=== PATIENT | born 1940 ===

== ENCOUNTER 2024-09-25 14:06 | Outpatient (NON) | payer MEDICARE, SELFPAY ==
--- OUTSIDE RECORDS SUMMARY | 2024-09-25 14:43 | XMS_ITS | Clinical Summary ---
Author Organization [facility] Address [address] [place] [address] Care Team Providers Care Wetlands Conservation Laborer Name Role Phone Prashanth Pate MD Primary Care Provider [phone] Immunizations Immunization Administration Dates Next Due MODERNA COVID-19 (12+) MRNA, LNP-S, PF, 100 MCG/ 0.5 ML DOSE 04/17/2020 Social History Tobacco Use Types Packs/Day Years Used Date Smoking Tobacco: Never Assessed Sex and Gender Information Value Date Recorded Sex Assigned at Not on file Legal Sex Male 7:29 PM CDT Gender Identity Not on file Sexual Orientation Not on file Last Filed Vital Signs Vital Sign Reading Time Taken Comments Blood Pressure 134/79 04/23/2013 9:34 AM CDT Pulse 80 04/23/2013 9:34 AM CDT Temperature - - Respiratory Rate - - Oxygen Saturation - - Inhaled Oxygen Concentration - - Weight 85.7 kg (189 lb) 04/23/2013 9:34 AM CDT Height 176.5 cm (5' 9.5) 04/23/2013 9:34 AM CDT Body Mass Index 27.51 04/23/2013 9:34 AM CDT Plan of Treatment Health Maintenance Due Date Last Done Comments DTaP, Tdap and Td Vaccines ( 1 - Tdap) 1960 Pneumococcal Vaccine: 50+ Years (1 of 1 - PCV) 10/23/1991 Zoster Vaccines (1 of 2) 10/23/1991 RSV Immunization or 60+ Years (1 - 1-dose 75+ series) 2016 COVID-19 Vaccine ( - 2023-2 5 season) 2023 04/17/2020, 03/17/2020 Meningococcal B Vaccine Aged Out No l onger eligible based on patient's age to complete this topic Meningococcal Vaccine Aged Out No yumiko cecil eligible based on patient's age to complete this topic RSV Immunizations Under 20 Months Aged Out No longer eligible b ased on patient's age to complete this topic Care Teams Wetlands Conservation Laborer Relationship Specialty Start Date End Date Prashanth Pate MD [address] [place] [address] PCP - General 06/25/14
--- OUTSIDE RECORDS SUMMARY | 2024-09-25 14:43 | XMS_ITS | Encounter Summary ---
Author Organization [facility] Healthcare Address [address] [place] [address] Care Team Providers Care Oxidation Engineer Name Role Phone Zane King MD Unavailable [phone] Nohemi Hatfield MD Primary Care Provider + [phone] Prashanth Back OD Unavailable [phone] Suresh Ascencio MD Unavailable [phone] Prashanth Gutierrez MD Unavailable Encounter Details Date Type Department Care Team (Late st Contact Info) Description 09/05/2024 Results Follow-Up [facility] Medical Group Primary Care [address] [address] Nohemi Hatfield MD [address] [place] [address] Stress Test for Myocardial Perfusion Social History Tobacco Use Types Packs/Day Years Used Date Smoking Tobacco: Former Cigarettes 0.5 5 0 02/14/1962 - 11/15/1967 Passive Smoke Exposure: Never Smokeless Tobacco: Never Alcohol Use Standard Drinks/Week Comments Yes 0 (1 standard drink = 0.6 oz pur e alcohol) AUDIT-C Answer Date Recorded Q1: How often do you have a drink containing alc ohol? 2-4 times a month 09/03/2024 Q2: How many drinks containi ng alcohol do you have on a typical day when you are drinking? 1 or 2 09/03/2024 Q3: How often do you have si x or more drinks on one occasion? Never 09/03/2024 PHQ-2 Answer Date Recorded PHQ-2 Total Score (If total score is 3 or more points, staff should administer the PHQ-9) 0 07/16/2024 PHQ-9 Answer Date Recorded PHQ-9 Total Score 4 10/20/2023 Personal Safety Answer Date Recorded Have you ever been in or are you currently in a harmful physical or emotional relationship or is someone making you feel afraid or unsafe? Denies 09/03/2024 Sex and Gender Information Value Date Recorded Sex Assigned at Not on file Legal Sex Male 8:25 AM CDT Gender Identity Male 04/23/2019 11:49 AM CDT Sexual Orientation Not on file Occupation Industry Job Start Date Job End Date retired-[employer] Not on file Not on file Not on file documented as of this encounter Miscellaneous Notes * Result Encounter Note - Nohemi Hatfield MD - 09/05/2024 5:23 PM CDT Test reviewed. Test ordered and managed by another provider. Will discuss with patient on follow upvisit. documented in this encounter Plan of Treatment Not on file documented as of this encounter Goals Goal Patient Goal Type Associated Problems Recent Progress Patient-Stated? Author Autogenera arnold Goal Care Plan Autogenerated Problem No Soumya Lund documented as of this encounter Visit Diagnoses Not on filedocumented in this encounter Additional Health Concerns Active Problems Noted Date Diagnosed Date 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 documented as of this encounter Care Teams Oxidation Engineer Relationship Specialty Start Date End Date Nohemi Hatfield MD [address] [place] [address] PCP - General Internal Medicine 04/30/19 Zane King MD [facility] [address] [address] Consulting Physician Orthopedic Surgery 10/25/18 Prashanth Back OD [facility] [place] [address] Internal Medicine 11/08/19 Suresh Ascencio MD [facility] [address] [place] [address] Consulting Physician Cardiology 12/13/22 Prashanth Gutierrez MD [facility] [address] [place] [address] Consulting Physician Urology 06/15/23 documented as of this encounter
--- OUTSIDE RECORDS SUMMARY | 2024-09-25 14:43 | XMS_ITS | Encounter Summary ---
Author Organization [facility] Facility Care Team Providers Care Children'S Counselor Name Role Phone Nohemi Hatfield MD Primary Care Provider + [phone] Zane King MD Unavailable [phone] Jaron Owens MD Unavailable [phone] Franko Davis MD Unavailable [phone] Francia Champagne LPN Unavailable [phone] Mateusz Olivas Primary Care Provide r Nohemi Hatfield MD Primary Care Provider + [phone] Prashanth Back OD Unavailable [phone] Francia Champagne LPN Unavailable [phone] Ciaran Lara MD Unavailable [phone] Suresh Ascencio MD Unavailable [phone] Prashanth Gutierrez MD Unavailable Encounter Details Date Type Department Care Team (Latest Contact Info) Description 11/30/2015 Orders Only [facility] CLINCONV ProviderRon MD [address] [place] [address] Social History Tobacco Use Types Packs/Day Years Used Date Smoking Tobacco: Never Assessed Sex and Gender Information Value Date Recorded Sex Assigned at Not on file Legal Sex Male 8:25 AM CDT Gender Identity Male 04/23/2019 11:49 AM CDT Sexual Orientation Not on file documented as of this encounter Plan of Treatment Not on file documented as of this encounter Procedures Procedure Name Priority Date/Time Associated Diagnosis Comments PROCEDURE - RESULT 12/11/2015 12 :00 AM CDT SCAN - LABS 12/09/2015 12:00 AM CDT documented in this encounter Results * PROCEDURE - RESULT (12/11/2015 12:00 AM CDT) Narrative 12/11/2015 12:00 AM CDT Ordered by an unspecified provider. us Historical Provider Final Res ult * SCAN - LABS (12/09/2015 12:00 AM CDT) Narrative 12/09/2015 12:00 AM CDT Ordered by an unspecified provider. us Historical Provider Final Res ult documented in this encounter Visit Diagnoses Not on filedocumented in this encounter Care Teams Children'S Counselor Relationship Specialty Start Date End Date Nohemi Hatfield MD [address] [place] [address] PCP - General 04/19/18 02/26/19 Mateusz Olivas PA [facility] [address] CAMACHO [address] [place] [address] PCP - General 02/27/19 04/29/19 Nohemi Hatfield MD [address] [place] [address] PCP - General Internal Medicine 04/30/19 Zane King MD [address] [place] [address] [address] CAMACHO [address] [place] [address] Consulting Physician Orthopedic Surgery 10/25/18 Jaron Owens MD [address] [facility] [address] [place] [address] Consulting Physician Orthopedic Surgery 10/25/1812/12 Franko Davis MD [address] [facility] [address] CAMACHO [address] [address] Circulation Crew Leader Cardiovascular Disease 11/15/18 Francia Champagne, HAND ENGRAVER [address] [facility] [address] CAMACHO [address] [address] Office Assistance 11/20/18 11/20/18 Prashanth Back OD [facility] [address] [place] [address] Internal Medicine 11/08/19 Francia Champagne, HAND ENGRAVER [address] [facility] [address] CAMACHO [address] [address] Office Assistance 06/03/20 06/03/20 Ciaran Lara MD [facility] [place] [address] Consulting Physician Ophthalmology 11/18/20 12/12/22 Suresh Ascencio MD [facility] [address] [place] [address] Consulting Physician Cardiology 12/13/22 Prashanth Gutierrez MD [facility] [address] [place] [address] Consulting Physician Urology 06/15/23 documented as of this encounter
--- OUTSIDE RECORDS SUMMARY | 2024-09-25 14:43 | XMS_ITS | Encounter Summary ---
Author Organization [facility] Facility Care Team Providers Care Africana Studies Professor Name Role Phone Nohemi Hatfield MD Primary Care Provider + [phone] Zane King MD Unavailable + [phone] Jaron Owens MD Unavailable [phone] Franko Davis MD Unavailable [phone] Francia Champagne LPN Unavailable +[phone] Mateusz Olivas Primary Care Provide r Nohemi Hatfield MD Primary Care Provider + [phone] Prashanth Back OD Unavailable [phone] Francia Champagne LPN Unavailable [phone] Ciaran Lara MD Unavailable [phone] Suresh Ascencio MD Unavailable [phone] Prashanth Gutierrez MD Unavailable Encounter Details Date Type Department Care Team (Latest Contact Info) Description 05/21/2016 Orders Only [facility] CLINCONV ProviderRon MD [address] [place] [address] Social History Tobacco Use Types Packs/Day [...] Procedure Name Priority Date/Time Associated Diagnosis Comments COLONOSCOPY - SCAN 05/21/2016 12 :00 AM CDT documented in this encounter Results * COLONOSCOPY - SCAN (05/21/2016 12:00 AM CDT) Narrative 05/21/2016 12:00 AM CDT Ordered by an unspecified provider. us Historical Provider Final Res ult documented in this encounter Visit Diagnoses Not on filedocumented in this encounter Care Teams Africana Studies Professor Relationship Specialty Start Date End Date Nohemi Hatfield MD [address] [place] [address] PCP - General 04/19/18 02/26/19 Mateusz Olivas PA [address] [place] [address] DR CAMACHO [address] [place] [address] PCP - General 02/27/19 04/29/19 Nohemi Hatfield MD [address] [place] [address] PCP - General Internal Medicine 04/30/19 Zane King MD [address] [place] [address] DR CAMACHO [address] [place] [address] Consulting Physician Orthopedic Surgery 10/25/18 Jaron Owens MD [address] [place] [address] DR CAMACHO [address] [place] [address] Consulting Physician Orthopedic Surgery 10/25/1812/12 Franko Davis MD [address] [place] [address] DR [address]ACHO [address] [address] Pumpman Cardiovascular Disease 11/15/18 Francia Champagne LPN [address] [facility] [address] CAMACHO [address] [address] Busgirl 11/20/18 11/20/18 Prashanth Back OD [facility] [address] [place] [address] Internal Medicine 11/08/19 Francia Champagne LPN [address] [facility] [address] CAMACHO [address] [address] Busgirl 06/03/20 06/03/20 Ciaran Lara MD [facility] [address] [place] [address] Consulting Physician Ophthalmology 11/18/20 12/12/22 Suresh Ascencio MD [facility] [address] [place] [address] Consulting Physician Cardiology 12/13/22 Prashanth Gutierrez MD [facility] [address] [place] [address] Consulting Physician Urology 06/15/23 documented as of this encounter
--- OUTSIDE RECORDS SUMMARY | 2024-09-25 14:43 | XMS_ITS | Encounter Summary ---
Author Organization [facility] Healthcare Address [address] [place] [address] Care Team Providers Care Registered Radiographer Name Role Phone Zane King MD Unavailable [phone] Nohemi Hatfield MD Primary Care Provider + [phone] Prashanth Back OD Unavailable [phone] Suresh Ascencio MD Unavailable [phone] Prashanth Gutierrez MD Unavailable Reason for Visit * Reason Onset Date Comments Spoke With Home Health Provider 09/20/2024 Encounter Details Date Type Department Care Team ([facility] st Contact Info) Description 09/20/2024 Telephone [facility] Medical Group Primary Care [address] [phone] Nohemi Hatfield MD [address] [place] [address] Spoke With Home Health Provider Social History Tobacco Use Types Packs/Day Years Used Date Smoking Tobacco: Former Cigarettes 0.5 5 0 02/14/1962 - 11/15/1967 Passive Smoke Exposure: Never Smokeless Tobacco: Never Alcohol Use Standard Drinks/Week Comments Yes 0 (1 standard drink = 0.6 oz pur e alcohol) [facility] Utilities Answer Date Recorded In the past 12 months has [employer] electric, gas, oil, or water company threatened to shut off services in your home? No 09/18/2024 Social Connection and Isolation Panel Answer Date Recorded In a typical week, how many times do you talk on the phone with family, friends, or neighbors? More than three times a week 09/18/2024 How often do you get togethe r with friends or relatives? More than three times a week 09/18/2024 How often do you attend chur or jain services? More than 4 times per year 09/18/2024 Do you belong to any clubs o r organizations such as amish groups, unions, fraternal or athletic groups, or school groups? No 09/18/2024 How often do you attend meet ings of the clubs or organizations you belong to? Never 09/18/2024 Are you , , di vorced, , never , or living with a partner? 09/18/2024 AUDIT-C Answer Date Recorded Q1: How often do you have a drink containing alc ohol? Monthly or less 09/17/2024 Q2: How many drinks containi ng alcohol do you have on a typical day when you are drinking? 1 or 2 09/17/2024 Q3: How often do you have si x or more drinks on one occasion? Never 09/17/2024 Overall Financial Resource Strain (CARDIA) Answe r Date Recorded How hard is it for you to pa y for the very basics like food, housing, medical care, and heating? Not hard at all 09/18/2024 PHQ-2 Answer Date Recorded PHQ-2 Total Score (If total score is 3 or more points, staff should administer the PHQ-9) 0 09/24/2024 Hunger Vital Sign Answer Date Recorded Within the past 12 months, y ou worried that your food would run out before you got the money to buy more. Never true 09/19/19 25 Within the past 12 months, t he food you bought just didn't last and you didn't have money to get more. Never true 09/18/2024 PRAPARE - Transportation Answer Date Re corded In the past 12 months, has l ack of transportation kept you from medical appointments or from getting medications? No 06/2024 In the past 12 months, has l ack of transportation kept you from meetings, work, or from getting things needed for daily living? No 09/18/2024 PHQ-9 Answer Date Recorded PHQ-9 Total Score 4 10/20/2023 Housing Stability Vital Sign Answer Dwayne e Recorded In the last 12 months, was t here a time when you were not able to pay the mortgage or rent on time? No 09/18/2024 In the past 12 months, how m any times have you moved where you were living? 0 09/18/2024 At any time in the past 12 m [facility], were you homeless or living in a prison (including now)? No 09/18/2024 Personal Safety Answer Date Recorded Have you ever been in or are you currently in a harmful physical or emotional relationship or is someone making you feel afraid or unsafe? Denies 09/17/2024 Sex and Gender Information Value Date Recorded Sex Assigned at Not on file Legal Sex Male 8:25 AM CDT Gender Identity Male 04/23/2019 11:49 AM CDT Sexual Orientation Not on file Occupation Industry Job Start Date Job End Date retired-[employer] Not on file Not on file Not on file documented as of this encounter Miscellaneous Notes * Telephone Encounter - Aminata Juarez MA - 09/24/2024 10:52 AM CDT Spoke with marion from , letting her know that Dr. Hatfield has had the patient get a BMP lab before his appt today. She voiced understanding and said to let them know if any other labs are needed. * Telephone Encounter - Paulette Lacey - 09/24/2024 9:13 AM CDT Call Back Caller???s Concern: Marion calling back for update, per message below from provider BMP needed and per lab encounter pt had CMP done on 09/21. Marion is requesting call back to confirm if any other labs are still needed and if so to please fax order to [phone] terence Dooley/Marion. Please advise. Does message need to be routed? Yes-Action Needed * Telephone Encounter - Yina Allen - 09/20/2024 11:08 AM CDT Marion, nurse with HH calling on behalf of Pt. Marion saw the Pt this morning for his home health eval f/u and f/u for Dr. King. Marion states that Dr. King will follow and sign all orders for HH, but she is wanting to know ifDr. Hatfield would like any labs done? They will be going back next week around 09/27 to draw the labs, would like an order in the system before then if they are needed. Please put Attn: Soumya & Marion RN at the top somewhere or on the front fax sheet to makesure that the right HH nurse gets the order documented in this encounter Plan of Treatment [...] documented as of this encounter Care Teams Registered Radiographer Relationship Specialty Start Date End Date Nohemi Hatfield MD [address] [place] [address] PCP - General Internal Medicine 04/30/19 Zane King MD [address] [facility] [address] CAMACHO [address] [place] [address] Consulting Physician Orthopedic Surgery 10/25/18 Prashanth Back OD [facility] [address] [place] [address] Internal Medicine 11/08/19 Suresh Ascencio MD [facility] [address] [place] [address] Consulting Physician Cardiology 12/13/22 Prashanth Gutierrez MD [facility] [address] [place] [address] Consulting Physician Urology 06/15/23 documented as of this encounter
--- OUTSIDE RECORDS SUMMARY | 2024-09-25 14:43 | XMS_ITS | Encounter Summary ---
Author Organization [facility] Healthcare Address [address] [place] [address] Care Team Providers Care Secretary Office Clerk Name Role Phone Zane King MD Unavailable [phone] Nohemi Hatfield MD Primary Care Provider + [phone] Prashanth Back OD Unavailable [phone] Suresh Ascencio MD Unavailable [phone] Prashanth Gutierrez MD Unavailable Encounter Details Date Type Department Care Team (Latest Contact Info) Description 09/24/2024 Results Follow-Up [facility] Medical Group Primary Care [address] [phone] Nohemi Hatfield MD [address] [place] [place] [address] Comprehensive metabolic panel, eGFR Social History Tobacco Use Types Packs/Day Years Used Date Smoking Tobacco: Former Cigarettes 0.5 5 0 02/14/1962 - 11/15/1967 Passive Smoke Exposure: Never Smokeless Tobacco: Never Alcohol Use Standard Drinks/Week Comments Yes 0 (1 standard drink = 0.6 oz pur e alcohol) [facility] Utilities Answer Date Recorded In the past 12 months has [employer] electric, gas, oil, or water company threatened [...] How often do you attend chur or religion services? More than 4 times per year 09/18/2024 Do you belong to any clubs o r organizations such as restorationist groups, unions, fraternal or athletic groups, or [...] any time in the past 12 m [facility], were you homeless or living in a care home (including now)? No 09/18/2024 Personal Safety Answer [...] Encounter Note - Nohemi Hatfield MD - 09/24/2024 7:49 AM CDT Tests reviewed, has upcoming OV will discuss with the patient at that time. documented in this encounter Plan of Treatment [...] documented as of this encounter Care Teams Secretary Office Clerk Relationship Specialty Start Date End Date Nohemi Hatfield MD [address] [place] [place] [address] PCP - General Internal Medicine 04/30/19 Zane King MD [address] [address] Consulting Physician Orthopedic Surgery 10/25/18 Prashanth Back OD [facility] [address] [place] [address] Internal Medicine 11/08/19 Suresh Ascencio MD [facility] [address] [place] [address] Consulting Physician Cardiology 12/13/22 Prashanth Gutierrez MD [facility] [address] [place] [address] Consulting Physician Urology 06/15/23 documented as of this encounter
--- OUTSIDE RECORDS SUMMARY | 2024-09-25 14:43 | XMS_ITS | Encounter Summary ---
Author Organization [facility] Facility Care Team Providers Care Business Process Expert Name Role Phone Nohemi Hatfield MD Primary Care Provider + [phone] Zane King MD Unavailable + [phone] Jaron Owens MD Unavailable [phone] Franko Davis MD Unavailable [phone] Francia Champagne LPN Unavailable +[phone] Mateusz Olivas Primary Care Provide r Nohemi Hatfield MD Primary Care Provider + [phone] Prashanth Back OD Unavailable [phone] Francia Champagne LPN Unavailable +[phone] Ciaran Lara MD Unavailable [phone] Suresh Ascencio MD Unavailable [phone] Prashanth Gutierrez MD Unavailable Encounter Details Date Type Department Care Team (Latest Contact Info) Description 11/07/2014 Orders Only [facility] CLINCONV ProviderRon MD [address] [place] [address] Social History Tobacco Use Types Packs/Day [...] Procedure Name Priority Date/Time Associated Diagnosis Comments SCAN - LABS 11/21/2015 12:00 AM CDT documented in this encounter Results * SCAN - LABS (11/21/2015 12:00 AM CDT) Narrative 11/21/2015 12:00 AM CDT Ordered by an unspecified provider. us Historical Provider Final Res ult documented in this encounter Visit Diagnoses Not on filedocumented in this encounter Care Teams Business Process Expert Relationship Specialty Start Date End Date Nohemi Hatfield MD [address] [place] [address] PCP - General 04/19/18 02/26/19 Mateusz Olivas PA [address] [place] [address] [address] CAMACHO [address] [place] [address] PCP - General 02/27/19 04/29/19 Noheim Hatfield MD [address] [place] [address] PCP - General Internal Medicine 04/30/19 Zane King MD [address] [place] [address] DR CAMACHO [address] [place] [address] Consulting Physician Orthopedic Surgery 10/25/18 Jaron Owens MD [address] [place] [address] DR CAMACHO [address] [place] [address] Consulting Physician Orthopedic Surgery 10/25/1812/12 Franko Davis MD [address] [place] [address] [address] [address] Regulatory Affairs Coordinator Cardiovascular Disease 11/15/18 Francia Champagne LPN [address] [facility] [address]ACH[address] [address] Watch Parts Inspector 11/20/18 11/20/18 Prashanth Back OD [facility] [place] [address] Internal Medicine 11/08/19 Francia Champagne LPN [address] [facility] [address]ACH[address] [address] Watch Parts Inspector 06/03/20 06/03/20 Ciaran Lara MD [facility] [address] [place] [address] Consulting Physician Ophthalmology 11/18/20 12/12/22 Suresh Ascencio MD [facility] [address] [place] [address] Consulting Physician Cardiology 12/13/22 Prashanth Gutierrez MD [facility] [address] [place] [address] Consulting Physician Urology 06/15/23 documented as of this encounter
--- OUTSIDE RECORDS SUMMARY | 2024-09-25 14:43 | XMS_ITS | Encounter Summary ---
Author Organization [facility] Healthcare Address [address] [place] [address] Care Team Providers Care Diesel Engine Mechanic Apprentice Name Role Phone Zane King MD Unavailable [phone] Nohemi Hatfield MD Primary Care Provider + [phone] Prashanth Back OD Unavailable [phone] Suresh Ascencio MD Unavailable [phone] Prashanth Gutierrez MD Unavailable Reason for Visit * Reason Comments Follow-up Pt here for govind foll ow up for rt hip osteoarthitis, pt had RIGHT TOTAL HIP ARTHROPLASTY and developed hyponatremia Encounter Details Date Type Department Care Team (Late st Contact Info) Description 09/24/2024 2:30 PM CDT Office Visit [facility] Primary Care [address] [place] [phone] Nohemi Hatfield MD [address] [place] [id number] Hospital discharge follow-up (Primary Dx); Hyponatremia; ALDEN (generalized anxiety disorder); Status post right hip replacement Social History Tobacco Use Types Packs/Day Years Used Date Smoking Tobacco: Former Cigarettes 0.5 5 0 02/14/1962 - 11/15/1967 Passive Smoke Exposure: Never Smokeless Tobacco: Never Alcohol Use Standard Drinks/Week Comments Yes 0 (1 standard drink = 0.6 oz pur e alcohol) [facility] Utilities Answer Date Recorded In the past 12 months has th e [place], gas, oil, or water [employer] threatened to shut off services in your [...] 09/18/2024 How often do you attend chur ch or anabaptism services? More than 4 times per year 09/18/2024 Do you belong to any clubs o r organizations such as buddhism groups, unions, fraternal or athletic groups, or [...] any time in the past 12 m [facility], were you homeless or living in a retirement (including now)? No 09/18/2024 Personal Safety Answer [...] on file documented as of this encounter Last Filed Vital Signs Vital Sign Reading Time Taken Comments Blood Pressure 132/74 09/24/2024 2:38 PM CDT Pulse 61 09/24/2024 2:38 PM CDT Temperature 36.2 C (97.2 F) 09/24/2024 2:38 PM CDT Respiratory Rate - - Oxygen Saturation 95% 09/24/2024 2:38 PM CDT Inhaled Oxygen Concentration - - Weight 82.5 kg (181 lb 12.8 oz) 09/24/2024 2:38 PM CDT Height 175.3 cm (5' 9) 09/24/2024 2:38 PM CDT Body Mass Index 26.85 09/24/2024 2:38 PM CDT documented in this encounter Progress Notes * Nohemi Hatfield MD - 09/24/2024 2:30 PM CDT Images from the original note were not included. This patient has verbally consented to recording this visit in order to utilize AI technology in generating this note. Transition of Care Visit Patient is seen in the office today for a transition of care visit, after a recent hospitalization.Initial phone contact was confirmed for the transition of care within two business days after discharge, and communication regarding aspects of care, education and support with activities of daily living is documented in the chart. Nohemi Gonzalez MD have personally reviewed pertinent Hospital/ER data including [employer] and Care Everywhere if available. This patient's discharge medication list has been reviewed and reconciled with his medication list in the office chart and has also been reviewed with patient and/or caregiver. I have noted any changes. Admission Date: Admitted 09/17/2024 Discharge Date: Discharged 09/19/2024 Discharge Diagnosis: Discharge diagnosis primary osteoarthritis right hip, status post right hip arthroplasty, hyponatremia Date of Initial Post-discharge Interactive Contact: 09/20/2024 Nohemi Gonzalez MD have personally reviewed pertinent inpatient and/or ED records, including discharge medications and [employer] if applicable. This patient's discharge medication list has been reviewed and reconciled with his outpatient medication list and has also been reviewed with patient and/or caregiver. I have noted any changes. History of Present Illness Nathan Diez is an 83 year old male who presents for a follow-up visit after right hip arthroplasty. He was discharged from the hospital on September 19, 2024, following a right hip arthroplasty due to osteoarthritis. He was admitted on September 17, 2024, and discharged two days later. He is currently ambulating with a walker that has a seat. He is experiencing issues with the negative pressure wound therapy dressing, specifically uncertainty about its removal. A nurse was supposed to assist with this but could not fit him in with the current appointment. He has local skin irritation and bruising from the dressing, causing discomfort and affecting his sleep. The is requesting that I help her remove the wound VAC today. She was instructed to do this onown. She has a dressing to replace it with. She is reluctant to do it for lack of knowledge of whatto expect. He has a history of hyponatremia, with sodium levels dropping to 122 during hospitalization and discharged with a sodium level of 132. He is on a fluid restriction and consuming dill pickles to increase sodium intake. During the hospitalization escitalopram buspirone were discontinued as potential culprits hyponatremia. Remain off of these medications. He has a history of anxiety and was previously on escitalopram, which was stopped due to concerns about its impact on sodium levels. He is coping without medication but is monitoring for any episodesof panic. He has had difficulty sleeping, only managing about eight hours since returning home, largely due to discomfort from the wound dressing. He believes he will be able to sleep better once thewound VAC is removed. His past medical history includes a previous episode of visual disturbances, initially thought to be a transient ischemic attack (TIA) but later clarified as not being a TIA. He also has a history ofpneumonia, which delayed his hip surgery by six weeks. His family history includes a brother with low sodium levels. Follow-up chest x-rays post pneumonia been reviewed. Metabolic Lab Results: Vitals BP 132/74 (BP Location: Left arm, Patient Position: Sitting) Pulse 61 Temp 36.2 ??C (97.2 ??F) (Temporal) Ht 175.3 cm (5' 9) Wt 82.5 kg (181 lb 12.8 oz) SpO2 95% BMI 26.85 kg/m?? Body mass index is 26.85 kg/m??. Major Procedures and Tests: Major Procedures and Tests Performed During Inpatient Stay: Studies Pending at Discharge (Includes Lab and Radiology) Studies pending at discahrge (includes Lab and Radiology) have been reviewed with the patient/caregiver. Problem Hospital Discharge Follow-Up Status Post Right Hip Replacement Hyponatremia Alden (Generalized Anxiety Disorder) 10/20/2023 - started Lexapro 10 mg daily with Buspar PRN. Current Outpatient Medications on File Prior to Visit Medication Sig Dispense Refill artificial tears (SYSTANE) 0.3 % gel Apply 1 drop to both eyes 3 (three) times a day as needed aspirin 81 mg chewable tablet Take 1 tablet (81 mg total) by mouth 2 (two) times a day for 28 days 56 tablet 0 azelastine (ASTELIN) 137 mcg (0.1 %) nasal spray Administer 1 spray into each nostril 2 (two) timesa day Use in each nostril as directed 30 mL 5 cholecalciferol (Vitamin D3) 1,000 unit capsule Take 1 capsule (1,000 Units total) by mouth daily collagen/biotin/ascorbic acid (COLLAGEN 1500 PLUS C ORAL) Take 1 Scoop by mouth daily ibuprofen 200 mg tab/cap Take 1-2 tablet/capsule (200-400 mg total) by mouth every 6 (six) hours asneeded for pain metoprolol XL (TOPROL-XL) 50 mg extended release tablet TAKE 1 TABLET DAILY 90 tablet 3 metroNIDAZOLE (METROGEL) 1 % gel Apply 1 Application topically daily multivitamin with minerals tablet Take 1 tablet by mouth daily polyethylene glycol (MIRALAX) 17 gram packet Take 1 packet (17 g total) by mouth daily rosuvastatin (CRESTOR) 10 mg tablet TAKE 1 TABLET NIGHTLY (Patient taking differently: Take 1 tablet (10 mg total) by mouth nightly) 90 tablet 3 senna-docusate (PERICOLACE) 8.6-50 mg Take 1 tablet by mouth daily 30 tablet 0 vitamin B complex capsule Take 1 capsule by mouth 2 (two) times a day B-Complex with B 12 cetirizine 10 mg capsule Take 1 capsule by mouth as needed (Patient not taking: Reported on 09/24/2024) cinnamon bark (CINNAMON ORAL) Take 2,000 mg by mouth 2 (two) times a day (Patient not taking: Reported on 09/24/2024) cyanocobalamin (Vitamin B-12) 1,000 mcg tablet Take 2 tablets (2,000 mcg total) by mouth daily (Patient not taking: Reported on 09/24/2024) [Paused] flaxseed oil 1,000 mg capsule Take 1 capsule (1,000 mg total) by mouth 2 (two) times a day(Patient not taking: Reported on 09/24/2024) ginkgo biloba 40 mg tablet (Patient not taking: Reported on 09/24/2024) Lactobac no.41-Bifidobact no.7 70 mg (3 billion cell) capsule daily (Patient not taking: Reported on 09/24/2024) oxyCODONE-acetaminophen (PERCOCET) 5-325 mg per tablet Take 1 tablet by mouth every 4 (four) hours as needed for pain (Patient not taking: Reported on 09/24/2024) 30 tablet 0 psyllium husk (MetamuciL) 3.4 gram/5.4 gram powder (Patient not taking: Reported on 09/24/2024) UNABLE TO FIND Take 1 each by mouth 2 (two) times a day Med Name [employer] Cinnamon with highpotency chromium 2000 mg valACYclovir (VALTREX) 1 gram tablet (Patient not taking: Reported on 09/24/2024) [DISCONTINUED] busPIRone (BUSPAR) 5 mg tablet Take 1 tablet (5 mg total) by mouth 3 (three) times aday (Patient not taking: Reported on 09/24/2024) 90 tablet 0 [DISCONTINUED] escitalopram (LEXAPRO) 10 mg tablet TAKE 1 TABLET DAILY (Patient not taking: Reported on 09/24/2024) 90 tablet 3 No current facility-administered medications on file prior to visit. Physical Exam: BP 132/74 (BP Location: Left arm, Patient Position: Sitting) Pulse 61 Temp 36.2 ??C (97.2 ??F) (Temporal) Ht 175.3 cm (5' 9) Wt 82.5 kg (181 lb 12.8 oz) SpO2 95% BMI 26.85 kg/m?? Physical Exam Physical Exam Vitals and nursing note reviewed. Exam conducted with a lab animal technologist present (). Constitutional: Appearance: Normal appearance. Comments: Ambulating with a walker wheeled with seat Cardiovascular: Rate and Rhythm: Normal rate and regular rhythm. Heart sounds: Normal heart sounds. Pulmonary: Effort: Pulmonary effort is normal. Breath sounds: Normal breath sounds. Musculoskeletal: General: Deformity present. Right lower leg: Edema present. Left lower leg: No edema. Skin: Comments: r hip wound vacuum in place, removed wound vac carefully. The incision wound was inspected, [address], no drainage or signs of infection. Neurological: General: No focal deficit present. Mental Status: He is alert and oriented to person, place, and time. Cranial Nerves: No cranial nerve deficit. Psychiatric: Mood and Affect: Mood normal. Assessment/Plan Assessment & Plan Hospital discharge follow up: status post right hip arthroplasty for primary osteoarthritis Recovery progressing well post right hip arthroplasty. No infection or drainage. [place] intact. Edema present, expected post-surgery. - Continue home health nurse and physical therapy visits. - Instruct on proper movement techniques to avoid twisting the hip. - Follow-up with surgeon or PA for staple removal. Postoperative right lower extremity wound care and edema Postoperative wound care required. Edema present, expected post-surgery. Wound healing well, no infection. Negative pressure wound therapy dressing removed, Dermabond mesh intact. - Ensure dressing changes as instructed by home health nurse. - Keep incision dry and covered for showers until follow-up in two weeks. Hyponatremia, post-hospitalization Hyponatremia post-hospitalization with sodium improved from 122 to 132 mEq/L. Fluid restriction implemented. Potential contributing factors include excessive fluid intake and escitalopram use. - Continue fluid restriction. - Monitor sodium levels with BMP in 2-3 days. - Ensure home health nurse can draw labs at home or arrange lab visit. - Remain off escitalopram. Generalized anxiety disorder Generalized anxiety disorder with borderline panic. Managing without medication. Previous escitalopram use may have contributed to hyponatremia. Concerns about sleep disturbances due to anxiety and postoperative discomfort. - Remain off escitalopram and buspirone. - Monitor for panic episodes and contact provider if necessary. - Consider temazepam for sleep if needed, but avoid use while movement restrictions are in place. Diagnoses and all orders for this visit: Hospital discharge follow-up (Primary) Assessment & Plan: S/p R hip arthroplasty sec to OA Complicated with hyponatremia Remain off the escitalopram ssri medication Hyponatremia Assessment & Plan: Remain off escitalopram Remain off buspirone Monitor sodium levels Maintain fluid restriction status Monitor BMP repeat in 2-3 days. Sodium is trending upwards since discharge last sodium level 2024 was 132. His lowest sodium level was 122 hospitalized Orders: - Basic metabolic panel; Future ALDEN (generalized anxiety disorder) Assessment & Plan: With tendency to panic patient is to remain off buspirone and escitalopram. Believes one of these is cause of hyponatremia. Patient is coping at this time without the use medication. We will watch out for any episodes of panic and call if he feels he needs to restart a medication. If he can not sleep may be will try temazepam but will hold off as we do not want him to fall asleep deeply and possibly cause injury to the hip as he was given very strict instructions limiting movement of the hip socket and right lower extremity. Status post right hip replacement Removal of Wound Vacuum today s problems. Dressed with dressing cover provided by Ortho Surgeon's office. Return for PREV SCHED. Coordination of Home care services and follow-up with specialist appointments confirmed. Instructions have been provided to and reviewed with the patient/critical care clinical nurse specialist prior to discharge. Continue home physical therapy and home health BMP in 2-3 days follow up on sodium levels Nohemi Hatfield MD documented in this encounter Miscellaneous Notes * Assessment & Plan Note - Nohemi Hatfield MD - 09/24/2024 4:14 PM CDT Associated Problem(s): ALDEN (generalized anxiety disorder) With tendency to panic patient is to remain off buspirone and escitalopram. Believes one of these is cause of hyponatremia. Patient is coping at this time without the use medication. We will watch out for any episodes of panic and call if he feels he needs to restart a medication. If he can not sleep may be will try temazepam but will hold off as we do not want him to fall asleep deeply and possibly cause injury to the hip as he was given very strict instructions limiting movement of the hip socket and right lower extremity. * Assessment & Plan Note - Nohemi Hatfield MD - 09/24/2024 4:05 PM CDT Associated Problem(s): Hyponatremia Remain off escitalopram Remain off buspirone Monitor sodium levels Maintain fluid restriction status Monitor BMP repeat in 2-3 days. Sodium is trending upwards since discharge last sodium level 2024 was 132. His lowest sodium level was 122 hospitalized * Assessment & Plan Note - Nohemi Hatfield MD - 09/24/2024 3:59 PM CDT Associated Problem(s): Hospital discharge follow-up S/p R hip arthroplasty sec to OA Complicated with hyponatremia Remain off the escitalopram ssri medication documented in this encounter Plan of Treatment Scheduled Orders Name Type Priority Associated Diagnoses Orde r Schedule Basic metabolic panel Lab Routine Hyponatremia Expected: 09/27/2024, Expires: 09/24/2025 documented as of this encounter Goals Goal Patient Goal Type Associated Problems Recent Progress Patient-Stated? Author Autogenera arnold Goal Care Plan Autogenerated Problem No Soumya Lund documented as of this encounter Visit Diagnoses Diagnosis Hospital discharge follow-up- Primary Other follow-up examination Hyponatremia Hyposmolality and/or hyponatremia ALDEN (generalized anxiety disorder) Generalized anxiety disorder Status post right hip replacement documented in this encounter Discontinued Medications Medication Sig Discontinue Reason Start Date End Da te escitalopram (LEXAPRO) 10 mg tablet TAKE 1 TABLET DAILY Therapy completed 05/25/2024 09/24/2024 busPIRone (BUSPAR) 5 mg tabletIndications:Genera lized Anxiety Disorder Take 1 tablet (5 mg total) by mouth 3 (three) times a day Therapy completed 10/20/2023 09/24/2024 documented as of this encounter Additional Health Concerns Active Problems Noted Date Diagnosed Date 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 documented as of this encounter Care Teams Diesel Engine Mechanic Apprentice Relationship Specialty Start Date End Date Nohemi Hatfield MD [address] [place] [id number] PCP - General Internal Medicine 04/30/19 Zane King MD [address] [address] Consulting Physician Orthopedic Surgery 10/25/18 Prashanth Back OD [facility] [address] [place] [address] Internal Medicine 11/08/19 Suresh Ascencio MD [facility] [address] [place] [address] Consulting Physician Cardiology 12/13/22 Prashanth Gutierrez MD [facility] [address] [place] [address] Consulting Physician Urology 06/15/23 documented as of this encounter
--- OUTSIDE RECORDS SUMMARY | 2024-09-25 14:43 | XMS_ITS | Clinical Summary ---
Author Organization [facility] Address [address] [place] [address] Care Team Providers Care Planning Specialist Name Role Phone Zane King MD Unavailable [phone] Nohemi Hatfield MD Primary Care Provider [phone] Prashanth Back OD Unavailable [phone] Suresh Ascencio MD Unavailable [phone] Prashanth Gutierrez MD Unavailable Allergies Active Allergy Reactions Criticality Noted Date Comments Hydrocodone Rash Medium 11/23/2018 Medications Lactobac no.41-Bifidob act no.7 70 mg (3 billion cell) capsule daily Active flaxseed oil 1,000 mg capsule Take 1 capsule (1,000 mg total) by mouth 2 (two) times a day Active multivitamin with minerals tablet Take 1 tablet by mouth daily Active cyanocobalami n (Vitamin B-12) 1,000 mcg tabletIndicat ions:Preventi on of Vitamin B12 Deficiency Take 2 tablets (2,000 mcg total) by mouth daily Active metroNIDAZOLE (METROGEL) 1 % gel Apply 1 Application topically daily 04/25/19 22 Active psyllium husk (MetamuciL) 3.4 gram/5.4 gram powder Active cinnamon bark (CINNAMON ORAL) Take 2,000 mg by mouth 2 (two) times a day Active collagen/biot in/ascorbic acid (COLLAGEN 1500 PLUS C ORAL) Take 1 Scoop by mouth daily Active ginkgo biloba 40 mg tablet 01/15/20 22 Active valACYclovir (VALTREX) 1 gram tablet 12/08/19 23 Active metoprolol XL (TOPROL-XL) 50 mg extended release tablet TAKE 1 TABLET DAILY 90 tablet 3 12/21/19 24 Active azelastine (ASTELIN) 137 mcg (0.1 %) nasal sprayIndicati ons:Seasonal Allergic Rhinitis Administer 1 spray into each nostril 2 (two) times a day Use in each nostril as directed 30 mL 5 01/16/20 24 Active rosuvastatin (CRESTOR) 10 mg tabletIndicat ions:Atrial premature contractions, VPC (ventricular premature complex),Lipi ds abnormal TAKE 1 TABLET NIGHTLY 90 tablet 3 05/11/19 25 Active Additional Information Patient taking differently:10 mgoralNightly, Informant: Self, Reported on 09/24/2024 cholecalcifer ol (Vitamin D3) 1,000 unit capsule Take 1 capsule (1,000 Units total) by mouth daily Active vitamin B complex capsule Take 1 capsule by mouth 2 (two) times a day B-Complex with B 12 Active artificial tears (SYSTANE) 0.3 % gel Apply 1 drop to both eyes 3 (three) times a day as needed Active polyethylene glycol (MIRALAX) 17 gram packetIndicat ions:constipa tion Take 1 packet (17 g total) by mouth daily Active cetirizine 10 mg capsule Take 1 capsule by mouth as needed Active UNABLE TO FIND Take 1 each by mouth 2 (two) times a day Med Name [employer] Cinnamon with high potency chromium 2000 mg Active ibuprofen 200 mg tab/cap Take 1-2 tablet/capsule (200-400 mg total) by mouth every 6 (six) hours as needed for pain Active oxyCODONE-lynda taminophen (PERCOCET) 5-325 mg per tabletIndicat ions:Pain Take 1 tablet by mouth every 4 (four) hours as needed for pain 30 tablet 09/19/19 25 Active Additional Information Patient not taking.Reported on 09/24/2024 aspirin 81 mg chewable tablet Take 1 tablet (81 mg total) by mouth 2 (two) times a day for 28 days 56 tablet 09/19/19 25 025 Active senna-docusat e (PERICOLACE) 8.6-50 mg Take 1 tablet by mouth daily 30 tablet 09/19/19 25 025 Active aspirin 81 mg chewable tablet Take 1 tablet (81 mg total) by mouth daily 025 Discontinued busPIRone (BUSPAR) 5 mg tabletIndicat ions:Generali zed Anxiety Disorder Take 1 tablet (5 mg total) by mouth 3 (three) times a day 90 tablet 10/20/19 24 025 Discontinued(Th erapy completed) escitalopram (LEXAPRO) 10 mg tablet TAKE 1 TABLET DAILY 90 tablet 3 05/26/19 25 025 Discontinued(Th erapy completed) Active Problems Problem Noted Date Diagnosed Date Hospital discharge follow-up 09/24/2024 Assessment & Plan (09/24/2024 3:59 PM CDT): S/p R hip arthroplasty sec to OA Complicated with hyponatremia Remain off the escitalopram ssri medication Status post right hip replacement 09/19/2024 Hyponatremia 09/18/2024 Assessment & Plan (09/24/2024 4:15 PM CDT): Remain off escitalopram Remain off buspirone Monitor sodium levels Maintain fluid restriction status Monitor BMP repeat in 2-3 days. Sodium is trending upwards since discharge last sodium level September 21, 2024 was 132. His lowest sodium level was 122 hospitalized Benign prostatic hyperplasia without lower urinary tract symptoms 07/16/2024 Primary osteoarthritis of right hip 06/15/2024 Mixed hyperlipidemia 12/15/2023 STEFANY (generalized anxiety disorder) 10/20/2023 Overview (10/20/2023): 10/20/2023 - started Lexapro 10 mg daily with Buspar PRN. Assessment & Plan (09/24/2024 4:16 PM CDT): With tendency to panic patient is to [...] the hip socket and right lower extremity. Assessment & Plan (03/05/2024 8:20 AM SEAT JOINER): Stable. Much improved with start of Lexapro. Continue Lexapro 10 mg daily. Assessment & Plan (01/09/2024 10:23 AM SEAT JOINER): Doing better on rx lexapro 10 mg low dose Tendency to panic at times Cont taking lexapro daily Assessment & Plan (10/20/2023 10:02 AM CDT): Worsening. Start Lexapro 10 mg daily with BuSpar 5 mg up to 3 times daily as needed. Notify office with new or worsening symptoms. We discussed the importance of sleep hygiene and he is encouraged to take BuSpar prior to going to bed in order to encourage good sleep. He will follow up with Dr. Hatfield as planned in 3 months to discuss symptoms and medication response. Paroxysmal SVT (supraventricular tachycardia) Assessment & Plan (06/15/2023 9:53 AM CDT): Stable Cont rx metoprolol Cont under Silva cardio Microscopic hematuria 12/13/2022 Assessment & Plan (12/13/2022 9:17 AM CDT): On asa No sx Monitor Repeat UA in 6 mos If has hematuria call If cont with microscopic hematuria then might need to see a Urologist PSA levels are normal for yrs Shingles outbreak 12/07/2022 Overview (12/13/2022): Lower back, on valacyclovir, still finishing, dx on Nov at Had live vaccine zostavax in 2008 Elevated antinuclear antibody (JAME) level 2022 History of COVID-19 09/03/2021 Overview (11/25/2021): 09/03/2021 Mild no meds taken, did not test, had exact sx as well tour group whom were positive Omicron variant likely given the timeline Olecranon bursitis of left elbow 05/21/2021 Overview (05/21/2021): Sec to fall and trauma and no fracture History of colon polyps 05/21/2021 Overview (05/21/2021): 05/12/2021 Dr Marshall jade colon polyp Assessment & Plan (11/25/2021 7:49 AM CDT): Up to date 05/12/2021 Dr Marshall jade colon polyp Assessment & Plan (05/21/2021 8:59 AM CDT): Recent colonoscopy small polyp, ff up in 5 yrs 04/2026 Effusion of left olecranon bursa 05/21/2021 Overview (05/21/2021): Recent fall, contusion Assessment & Plan (05/21/2021 9:08 AM CDT): Recent fall, contusion Healing Warm compress Soak in [employer] soPressly Massage Call if signs of infection, educatated Printed exercises Deviated nasal septum 12/04/2020 Bilateral carotid artery stenosis 11/18/2020 Overview (11/18/2020): CT brain 05/2020 normal Carotid US 05/2020 1. A 16% to 49% stenosis right internal carotid artery with 1% to 15% stenosis on the left. 2. Antegrade flow noted bilateral vertebral arteries. Assessment & Plan (01/16/2024 6:24 PM SEAT JOINER): Recent carotids stable not worsening Carotid US 05/2020 1. A 16% to 49% stenosis right internal carotid artery with 1% to 15% stenosis on the left. 2. Antegrade flow noted bilateral vertebral arteries. Cont asa and rx rosuvastatin therapy Stable, not worsening Assessment & Plan (06/15/2023 9:54 AM CDT): Recent carotids stable not worsening Cont asa and rx rosuvastatin therapy Stable, not worsening Assessment & Plan (12/13/2022 9:13 AM CDT): Cont on asa and rx statin therapy Ff low chol diet Assessment & Plan (06/02/2022 4:26 PM CDT): Cont on asa and rx statin therapy Ff low chol diet Assessment & Plan (11/25/2021 10:30 AM CDT): Carotid ultrasound 06/03/2020 1. A 16% to 49% stenosis right internal carotid artery with 1% to 15% stenosis on the left. 2. Antegrade flow noted bilateral vertebral arteries. Given episode of amaurosis fugax in the right eye same side as the 16-49% stenosis of the right internal carotid artery I believe the patient could benefit from statin lowering medication and daily aspirin therapy which patient is not taking did not tolerate Assessment & Plan (05/21/2021 9:05 AM CDT): Carotid ultrasound 06/03/2020 1. A 16% to 49% stenosis right internal carotid artery with 1% to 15% stenosis on the left. 2. Antegrade flow noted bilateral vertebral arteries. Given episode of amaurosis fugax in the right eye same side as the 16-49% stenosis of the right internal carotid artery I believe the patient could benefit from statin lowering medication and daily aspirin therapy. Discussed this at length with the patient he would like me to consult with his physical science teacher before initiating this therapy. I warned the patient that he it is certainly still at risk for a stroke. Assessment & Plan (11/18/2020 6:25 PM CDT): Carotid ultrasound 06/03/2020 1. A 16% to 49% stenosis right internal carotid artery with 1% to 15% stenosis on the left. 2. Antegrade flow noted bilateral vertebral arteries. Given episode of amaurosis fugax in the right eye same side as the 16-49% stenosis of the right internal carotid artery I believe the patient could benefit from statin lowering medication and daily aspirin therapy. Discussed this at length with the patient he would like me to consult with his physical science teacher before initiating this therapy. I warned the patient that he it is certainly still at risk for a stroke. Low HDL (under 40) 11/18/2020 Assessment & Plan (11/18/2020 6:22 PM CDT): This remains concerning despite his change in diet he is now plant based. His triglycerides has improved quite significantly. Continue plant based diet. Exercise on regular basis. Patient may benefit from statin medication like Crestor low-dose. I will discuss with his physical science teacher. VPC (ventricular premature complex) 07/01/2020 SVT (supraventricular tachycardia) 07/01/2020 Overview (01/09/2024): On Metoprolol Assessment & Plan (06/15/2023 9:40 AM CDT): On rx metoprolol stable Under are of Dr Raquel Ascencio cardio Cont same Avoid stimulants stable Assessment & Plan (11/25/2021 7:48 AM CDT): On metoprolol Under are of Dr Davis cardio Cont same stable Syncope 06/12/2020 Assessment & Plan (06/12/2020 11:02 AM CDT): Was worked up in the hospital for this He does take metoprolol 25 mg QD TIA (transient ischemic attack) 06/04/2020 Overview (06/15/2023): This is concerning. This is concerning for a stroke. Even if it was a TIA I had a long discussion with the patient about his risk for stroke. Transient loss of vision to the R eye, 15 min episode, vision restored in August 2020 (shade like ) May 2020 blurred vision bilat eyes transient CT scan at that time was reviewed with the patient. Also carotid ultrasound reviewed. See below. Retinal exam normal by Dr Lara according to the patient. CT brain 05/2020 normal Carotid US 05/2020 1. A 16% to 49% stenosis right internal carotid artery with 1% to 15% stenosis on the left. 2. Antegrade flow noted bilateral vertebral arteries. I recommend that he take statin medications and 81 mg baby aspirin. Assessment & Plan (06/15/2023 9:39 AM CDT): TIA to the r eye vision change transient was likely a TIA, stroke to the R eye On rx rosuvastatin statin Now back on asa therapy daily Assessment & Plan (12/13/2022 9:14 AM CDT): TIA to the r eye vision change transient was likely a TIA, stroke to the R eye On statin Now back on asa therapy daily Assessment & Plan (06/02/2022 4:25 PM CDT): Seeing Dr Ryan jonas re this possibility that the r eye vision change transient was likel;y a TIA, stroke to the R eye On statin Now back on asa therapy daily Assessment & Plan (11/25/2021 10:27 AM CDT): Seeing Dr Ryan jonas re this possibility that the r eye vision change transient was likel;y a TIA, stroke to the R eye On statin Refuses to take asa therapy makes him bleed easily Assessment & Plan (05/21/2021 7:21 AM CDT): Now on crestor Transient loss of vision (possible amaurosis Fugax) in August 2020, lasted only 15 mins But had blurred vision episode in 05/2020 Seen by retina specialist CT brain 05/2020 normal Carotid US 05/2020 1. A 16% to 49% stenosis right internal carotid artery with 1% to 15% stenosis on the left. 2. Antegrade flow noted bilateral vertebral arteries. Plant based diet Cont to lower trigs with diet NO recurrence since 2020 Assessment & Plan (11/18/2020 9:12 AM CDT): Transient loss of vision (possible amaurosis Fugax) in August 2020, lasted only 15 mins But had blurred vision episode in 05/2020 Patient does not want to take a baby asa or statin med, does not like to take medication in general Seen by retina specialist CT brain 05/2020 normal Carotid US 05/2020 1. A 16% to 49% stenosis right internal carotid artery with 1% to 15% stenosis on the left. 2. Antegrade flow noted bilateral vertebral arteries. Plant based diet Cont to lower trigs with diet Add fish to diet Preoperative cardiovascular examination 11/08/19 Assessment & Plan (01/09/2024 10:06 AM SEAT JOINER): Reviewed previous labs and diagnostic test results. Chronic medical problems evaluated and management plans discussed with the patient. Prescription medications, supplements, vitamins and immunizations reviewed. Wear seatbelts. Use sunscreen. Discussed healthy diet and disease prevention. Recommend moving towards a plant based diet. Discussed importance of scheduling recommended screening tests. Discussed importance of regular physical examinations for health maintenance. Discussed importance of a living will, advanced directives and establishing or updating healthcare power of commercial litigation attorney document and providing our office with a copy. Assessment & Plan (12/12/2022 10:43 PM CDT): Reviewed previous labs and diagnostic test results. Chronic medical problems evaluated and management plans discussed with the patient. Prescription medications, supplements, vitamins and immunizations reviewed. Wear seatbelts. Use sunscreen. Discussed healthy diet and disease prevention. Recommend moving towards a plant based diet. Discussed importance of scheduling recommended screening tests. Discussed importance of regular physical examinations for health maintenance. Discussed importance of a living will, advanced directives and establishing or updating healthcare power of commercial litigation attorney document and providing our office with a copy. Assessment & Plan (11/25/2021 7:47 AM CDT): Reviewed previous labs and diagnostic test results. Chronic medical problems evaluated and management plans discussed with the patient. Prescription medications, supplements, vitamins and immunizations reviewed. Wear seatbelts. Use sunscreen. Discussed healthy diet and disease prevention. Recommend moving towards a plant based diet. Discussed importance of scheduling recommended screening tests. Discussed importance of regular physical examinations for health maintenance. Discussed importance of a living will, advanced directives and establishing or updating healthcare power of commercial litigation attorney document and providing our office with a copy. Assessment & Plan (11/18/2020 8:47 AM CDT): Reviewed previous labs and diagnostic test results. Chronic medical problems evaluated and management plans discussed with the patient. Prescription medications, supplements, vitamins and immunizations reviewed. Wear seatbelts. Use sunscreen. Discussed healthy diet and disease prevention. Recommend moving towards a plant based diet. Discussed importance of scheduling recommended screening tests. Discussed importance of regular physical examinations for health maintenance. Discussed importance of a living will, advanced directives and establishing or updating healthcare power of commercial litigation attorney document and providing our office with a copy. Assessment & Plan (11/08/2019 2:39 PM CDT): Wear sunscreen with SPF over 50 while outdoors. Wear sun protective head wear and clothing if planning to stay outdoors exposed to the direct sunlight for extended hours. Wear seatbelts while in a vehicle. Do not TEXT and DRIVE Do not DRINK and DRIVE. Drink responsibly Follow a heart healthy diet and lifestyle. Consume 5-7 servings of fruits and vegetables a day.. Such as the Mediterranean Diet. Maintain/attain normal body weight. Exercise regularly, minimum 20 mins 3 days a week to reduce cardiovascular healthy. Maintain good sleep schedule and sleep habits I recommend that all patients follow a diet that is high in fruits and vegetables and low in processed foods such as sugar and foods that are made with white flour. I recommend using beneficial fats such as olive oil, nuts, seeds and berries and avoiding saturated animal fats. Please stay physically active to the extent that you are physically able to. Test results: if you have not received communication about test results within 7 days of the test being performed, please contact the office. I strongly encourage [employer] sign ups. It can facilitate communication flow. Please contact the office for instructions on signing up. Risk for falls 11/08/2019 Assessment & Plan (01/09/2024 10:06 AM SEAT JOINER): Patient at risk for falls due to age and co morbidities. Fall prevention discussed c patient in detail. Exercises for balance and coordination, keep LE muslces toned and strong. Assessment & Plan (12/12/2022 10:43 PM CDT): Patient at risk for falls due to age and co morbidities. Fall prevention discussed c patient in detail. Exercises for balance and coordination, keep LE muslces toned and strong. Assessment & Plan (11/25/2021 7:47 AM CDT): Patient at risk for falls due to age and co morbidities. Fall prevention discussed c patient in detail. Exercises for balance and coordination, keep LE muslces toned and strong. Assessment & Plan (11/18/2020 8:47 AM CDT): Patient at risk for falls due to age and co morbidities. Fall prevention discussed c patient in detail. Exercises for balance and coordination, keep LE muslces toned and strong. Assessment & Plan (11/08/2019 2:39 PM CDT): Follow low carbohydrate high-protein diet. Avoid eating sugars. Patient should read labels and make sure there are no ingredients that contain added sugar, or fructose, sucrose or anything ends in OSE. Exercise regularly, limit food portions. Follow proper serving sizes. Radicular leg pain 11/08/2019 Assessment & Plan (11/08/2019 2:49 PM CDT): Rad to the right leg L Spine xray (may benefit for chiro - dr Neville or dr Oneal) or may need an MRI pending xrays Vegan diet 11/08/2019 Assessment & Plan (11/18/2020 6:21 PM CDT): B12 levels in the past have been normal. Continue plant based diet. Patient has significantly lowered his triglyceride since he has improved on his diet. His HDL remains low which is still concerning. Assessment & Plan (11/08/2019 2:38 PM CDT): b12 level soon Atrial premature contractions 08/16/2019 Overview (11/08/2019): Dr Davis managing. On metoprolol therapy. Assessment & Plan (11/08/2019 2:27 PM CDT): Cont on metoprolol therapy, stable Rosacea 11/23/2018 Assessment & Plan (11/18/2020 6:23 PM CDT): Stable. Continue under care of a golf cart assembler. Status post left hip replacement 11/23/2018 Overview (11/18/2020): Secondary to osteoarthritis. Assessment & Plan (11/18/2020 6:23 PM CDT): Patient is doing well with this left hip at this time. Problem is now with the right hip. He may need total hip replacement as well as secondary to osteoarthritis. Assessment & Plan (11/08/2019 2:30 PM CDT): Due in November 2019 for 1 yr ff up from surgery, patient to call Dr Ascencio office Essential hypertension 05/16/2016 Overview (01/09/2024): Dr Ascencio physical science teacher On daily rx metoprolol 50 mg On vegan diet HDL improving since 2014 Assessment & Plan (07/16/2024 2:18 PM CDT): Follow low sodium DASH Diet. Exercise regularly for cardiovascular health and weight loss. Achieve or maintain normal BMI/Weight. Take medications as prescribed. Report if having problems with the medication or if develops Chest pains. Monitor BP occasionally and record. Report if BP consistently over 160/90 or under 90/60 and dizzy and low heart rate. Continue Rx medication Metoprolol 50 mg daily. FU as panned with Dr Ascencio. BP is controlled and stable. Assessment & Plan (03/05/2024 8:20 AM SEAT JOINER): Stable. Managed by Dr Ascencio. Assessment & Plan (06/15/2023 9:38 AM CDT): Follow low sodium DASH Diet. Exercise regularly for CV health and weight loss. Achieve or Maintain normal BMI/Weight. Continue Rx metoprolol 50 mg medication. BP is controlled and stable. Assessment & Plan (12/13/2022 9:12 AM CDT): Follow low sodium DASH Diet. Exercise regularly for CV health and weight loss. Achieve or Maintain normal BMI/Weight. Continue Rx medication. BP is controlled and stable. Assessment & Plan (06/02/2022 4:25 PM CDT): Follow low sodium DASH Diet. Exercise regularly for CV health and weight loss. Achieve or Maintain normal BMI/Weight. Take medications as prescribed. Report if having problems with the medication or if develops Chest pains. Monitor BP occly and record. Report if BP consistently over 160/90 or under 90/60 and dizzy and LH. Continue Rx medication. BP is controlled and stable. Assessment & Plan (11/25/2021 10:28 AM CDT): bp controlled Cont same regimen Cont to exercise daily Cont to walk a mile daily Assessment & Plan (05/21/2021 7:20 AM CDT): On low dose metoprolol 25mg On vegan diet HDL improving since 2014 (now on crestor too) Exercise Low sodium diet Assessment & Plan (11/18/2020 8:48 AM CDT): On low dose metoprolol 25mg On vegan diet HDL improving since 2014 Assessment & Plan (06/12/2020 11:02 AM CDT): Continue current medication Assessment & Plan (05/14/2020 10:50 AM CDT): bp controlled Monitor and limit sodium intake Heart healthy diet, cont plant based diet Assessment & Plan (11/08/2019 2:37 PM CDT): bp controlled Monitor and limit sodium intake Heart healthy diet, cont plant based diet Assessment & Plan (04/30/2019 11:00 AM CDT): Controlled on low does metoprolol 25mg daily Monitor BP and pulse rate Low sodium plant based diet Assessment & Plan (10/25/2018 5:41 PM CDT): CMP, UA in 6mos Lower lisinopril to 5mg daily since bp been running too low Follow low sodium DASH Diet. Exercise regularly for CV health and weight loss. Achieve or Maintain normal BMI/Weight. Take medications as prescribed. Report if having porblems with the medication or if develops Chest pains. Monitor BP occly and record. Report if BP consistently over 160/90 or under 90/60 and dizzy and LH. Abnormal glucose 05/20/2015 Overview (01/09/2024): 04/2021 a1c 6.0 10/2021 a1c 6.2 05/2022 a1c 6.2 11/2022 A1c 6.2 05/2023 A1c 5.8 12/2023 A1c 6.1 Assessment & Plan (01/09/2024 10:20 AM SEAT JOINER): BS and A1c is elevated at 6.1 At risk for DM Cont to eat better Cont supplements Remain active physically Assessment & Plan (06/15/2023 9:38 AM CDT): BS are better A1c is down to 5.8 Cont to eat better Cont supplements Remain active Assessment & Plan (12/13/2022 9:12 AM CDT): A1c remains at 6.2, remains at risk for DM 04/2021 a1c 6.0 10/2021 a1c 6.2 05/2022 a1c 6.2 11/2022 A1c 6.2 Follow low carbohydrate high-protein diet. Avoid eating sugars. Cont healthy low sugar diet and Exercise regularly Assessment & Plan (06/02/2022 4:33 PM CDT): a1c at 6.2% no worse than 6 mos ago was 6.2 Cont diet control At risk for DM Follow low carbohydrate high-protein diet. Avoid eating sugars. Patient should read labels and make sure there are no ingredients that contain added sugar, or fructose, sucrose or anything ends in OSE. Exercise regularly, limit food portions. Follow proper serving sizes. Work on add'l weight loss. Will Monitor a1c on a 3-6mos basis. Assessment & Plan (11/25/2021 10:29 AM CDT): Remains at risk for DM a1c up at 6.2 was 6 Ff no sugar diet Monitor Exercise more Assessment & Plan (05/21/2021 7:22 AM CDT): Remains at risk for DM a1c 6% Ff no sugar diet monitor Assessment & Plan (11/18/2020 8:57 AM CDT): Follow low carbohydrate high-protein diet. Avoid eating sugars. Patient should read labels and make sure there are no ingredients that contain added sugar, or fructose, sucrose or anything ends in OSE. Exercise regularly, limit food portions. Follow proper serving sizes. Work on add'l weight loss. Will Monitor a1c on a 3-6mos basis. Assessment & Plan (05/14/2020 10:52 AM CDT): 5.7 a1c, FBS 123 Cont NO sugar diet Assessment & Plan (11/08/2019 2:38 PM CDT): 5.7 a1c, FBS 123 Cont NO sugar diet Assessment & Plan (04/30/2019 10:57 AM CDT): Follow low carbohydrate high-protein diet. Avoid eating sugars. Patient should read labels and make sure there are no ingredients that contain added sugar, or fructose, sucrose or anything ends in OSE. Exercise regularly, limit food portions. Follow proper serving sizes. Work on add'l weight loss. Will Monitor a1c in 6 mos Assessment & Plan (10/25/2018 12:22 PM CDT): A1c in 6mos A1c at 5.6 well controlled on diet. Remains at low risk for DM Follow low carbohydrate high-protein diet. Avoid eating sugars. Patient should read labels and make sure there are no ingredients that contain added sugar, or fructose, sucrose or anything ends in OSE. Exercise regularly, limit food portions. Follow proper serving sizes. Work on add'l weight loss. Will Monitor a1c on a 3-6mos basis. Resolved Problems Problem Noted Date Diagnosed Date Resolved Date Impacted cerumen, left ear 12/13/2022 1 03/10/2023 Assessment & Plan (12/13/2022 9:24 AM CDT): Removal of cerumen Hoarseness 12/04/2020 05/21/2021 Lipids abnormal 07/01/2020 01/09/2024 Overview (11/18/2020): High triglycerides low HDL Plant based diet Assessment & Plan (05/21/2021 7:20 AM CDT): On statin by cardio, Dr Davis Hx of TIA Low hdl Vegan Cont low chol diet Assessment & Plan (11/18/2020 6:23 PM CDT): Patient prefers not to be on statin medication. However, he stated that if the physical science teacher suggested that he would agree to. Follow low-cholesterol diet continue on plant based diet. Will discuss with the physical science teacher regarding his benefits for statin therapy at this time. Shortness of breath 07/01/2020 05/22/19 22 Visual symptoms 06/04/2020 05/21/2021 Primary osteoarthritis of left hip 10/25/2018 04/29/2019 Assessment & Plan (10/25/2018 12:26 PM CDT): Scheduled for THR on November 15, [address] Ascencio Medically cleared, form sent Pre op testing is tomorrow Gastroesophageal reflux 05/16/201604/16 Overview (11/08/2019): Improved on vegan diet Assessment & Plan (05/14/2020 10:51 AM CDT): Resolved since on vegan diet eating better Assessment & Plan (11/08/2019 2:47 PM CDT): Symptoms improved on vegan diet Cont gerd diet, rich in fruits and vegetables Assessment & Plan (04/30/2019 10:59 AM CDT): Follow GERD Diet. Symptoms stable, not needing anti acid meds. Assessment & Plan (10/25/2018 12:40 PM CDT): Follow GERD Diet. Keep HOB elevated 30 degrees at bedtime. Avoid late evening or large meals. Avoid spicy, rich or fried foods. Limit caffeine intake. Remain off lansoprazole therapy not needing Encounters Date Type Department Care Team Description 09/24/2024 2:30 PM CDT Office Visit [facility] [address] [place] [phone] Nohemi Hatfield MD Hospital discharge follow-up (Primary Dx); Hyponatremia; STEFANY (generalized anxiety disorder); Status post right hip replacement 09/24/2024 Results Follow-Up [facility] [address] [place] [address] [phone] Nohemi Hatfield MD Comprehensive metabolic panel, eGFR 09/21/2024 11:15 AM CDT Lab [facility] Office Building [address] [place] [phone] Essential hypertension; Mixed hyperlipidemia; Hyponatremia 09/20/2024 Telephone [facility] [address] [place] [address] [phone] Nohemi Hatfield MD Spoke With Home Health Provider 09/20/2024 Telephone [facility] [address] [phone] Zane King MD call back home health 09/20/2024 Telephone [facility] [address] [place] [address] [phone] Nohemi Hatfield MD CARE PLASTIC SURGERY ASSISTANT EDUARDO IP (LABS) 09/20/2024 EDUARDO IP Outreach [facility] Accountable Care Organization [address] [place] [phone] Francia Champagne LPN 09/17/2024 12:40 PM CDT - 09/17/2024 3:05 PM CDT Surgery [facility] [place] [address] [place] [address] Zane King MD RIGHT TOTAL HIP ARTHROPLASTY 09/17/2024 12:33 PM CDT Anesthesia Event [facility] Main OR [address] [place] [address] India French MD Taylor-White, Carlotta A., NP 09/17/2024 10:36 AM CDT - 09/19/2024 1:38 PM CDT Hospital Encounter [address] [address] Zane King MD Primary osteoarthritis of right hip (Primary Dx); Hyponatremia Discharge Disposition: Discharge to home, home health skilled care 09/05/2024 12:00 PM CDT - 09/05/2024 11:59 PM CDT Hospital Encounter [facility] 2 Nuclear Medicine [address] [place] [address] Discharge Disposition: Discharge to home or self care 09/05/2024 12:00 PM CDT - 09/05/2024 11:59 PM CDT Hospital Encounter [facility] Medical [facility] 2 Nuclear Medicine [address] [place] [phone] Discharge Disposition: Discharge to home or self care 09/05/2024 12:00 PM CDT - 09/05/2024 11:59 PM CDT Hospital Encounter [facility] 2 Nuclear Medicine [address] [place] [address] Discharge Disposition: Discharge to home or self care 09/05/2024 11:51 AM CDT - 09/05/2024 11:59 PM CDT Hospital Encounter [facility] 2 Nuclear Medicine [address] [place] [address] Atrial premature contractions; VPC (ventricular premature complex); SVT (supraventricular tachycardia); Paroxysmal SVT (supraventricular tachycardia); Preoperative clearance Discharge Disposition: Discharge to home or self care 09/05/2024 Results Follow-Up [facility] [address] [place] [phone] Nohemi Hatfield MD Stress Test for Myocardial Perfusion 09/05/2024 Results Follow-Up [facility] [address] [facility] [address] [place] [phone] Frances Yuan MA NM MPI SPECT (Rest and/or Stress) Multiple Studies 09/03/2024 12:27 PM CDT - 09/03/2024 11:59 PM CDT Hospital Encounter [facility] ED Diagnostic Imaging [address] [place] [phone] Preop testing Discharge Disposition: Discharge to home or self care 09/03/2024 11:00 AM CDT Pre-Admission Testing [facility] PreAdmission Testing [facility] [place] [address] Preop testing (Primary Dx); Elevated hemoglobin A1c 08/30/2024 Orders Only [facility] PreAdmission Testing [address] [place] [address] Dafne Landry RN 08/22/2024 Telephone [facility] [address] [place] [address] [phone] Suresh Ascencio MD 07/27/2024 Telephone [facility] Primary Care [address] [place] [phone] Nohemi Hatfield MD Test Results 07/26/2024 3:28 PM CDT - 07/26/2024 11:59 PM CDT Hospital Encounter [facility] ED Diagnostic Imaging [address] [place] [phone] Discharge Disposition: Discharge to home or self care 07/26/2024 2:15 PM CDT Pre-Admission Testing [facility] PreAdmission Testing [address] [place] [address] Primary osteoarthritis of right hip; Preop testing 07/26/2024 1:00 PM CDT Therapy [facility] OP Occup Therapy [address] [place] [phone] Essence Hagan OT Primary osteoarthritis of right hip (Primary Dx) 07/26/2024 Plan of Care Documentation [facility] OP Occup Therapy [address] [place] [phone] 07/26/2024 Documentation [facility] [address] [address] Gail Urrutia RN 07/19/2024 Telephone [facility] [address] [place] [phone] Nohemi Hatfield MD Med Refill 07/18/2024 Results Follow-Up [address] [phone] Shy Hannon NP XR Chest Pa Lateral 2 Views 07/18/[address] [phone] Nohemi Hatfield MD Test Results 07/16/2024 2:00 PM CDT - 07/16/2024 11:59 PM CDT Hospital Encounter [facility] MOB 1 DIAG IMG [address] [place] [address] Chronic cough Discharge Disposition: Discharge to home or self care 07/16/2024 1:30 PM CDT Office Visit [address] [phone] Shy Hannon NP Pre-operative clearance (Primary Dx); Chronic cough; Abnormal glucose; Essential hypertension; Primary osteoarthritis of right hip; Microscopic hematuria; Benign prostatic hyperplasia without lower urinary tract symptoms 07/12/2024 8:45 AM CDT Office Visit [facility] [address] [phone] Suresh Ascencio MD Essential hypertension (Primary Dx); Atrial premature contractions; VPC (ventricular premature complex); SVT (supraventricular tachycardia); Bilateral carotid artery stenosis; Mixed hyperlipidemia; TIA (transient ischemic attack); Preoperative cardiovascular examination 07/11/2024 Telephone [facility] [address] [place] [phone] Nohemi Hatfield MD 07/24 appt cx 07/03/2024 7:35 AM CDT Lab [facility] Building [address] [place] [address] Essential hypertension; Mild carotid artery disease; Atrial premature contractions; SVT (supraventricular tachycardia); VPC (ventricular premature complex); Lipids abnormal; Mixed hyperlipidemia; TIA (transient ischemic attack) 07/03/2024 7:20 AM CDT Lab [facility] Building [address] [place] [address] Abnormal glucose; Mild carotid artery disease 07/03/2024 Results Follow-Up [facility] Primary Care [address] [place] [phone] Shy Hannon I., CLARY Hemoglobin A1c, Albumin Creatinine Ratio, Urine, Urinalysis reflex to microscopic and culture Urine, clean voided, Urinalysis, microscopic only from Last 3 Months Immunizations Immunization Administration Dates Next Due Hep A, Adult 05/15/1996 Hep A, Pediatric 10/15/1996 Hep B Vaccine 04/24/2018,02/06/1997,10/15/1996 IPV 06/23/2016 Influenza, Quadrivalent, Hig h Dose, Preservative Free, Intrr 12/13/2022,11/25/2021,11/18/2020,11/07 Influenza, Quadrivalent, Spl it, Preservative Free, Intramuscular 12/31/2012,12/31/2012 Influenza, Split 11/22/2008,01/21/2005 Influenza, Trivalent, High D ose, Split, Preservative Free, Intramuscular 01/09/2024,10/25/2018,04/24/2018,11/15,11/21/2015 Influenza, Trivalent, IM (MDV) 4,11/14/2013,01/11/2011,01/24 Influenza, Trivalent, Preser vative Free, Intramuscular 12/16/2011 Influenza, Whole 01/15/2003, 2,01/10/2001,11/26,01/18/2000,12/21/1998,11/21/1997 ,12/16/1996,12/15/1994 MMR 11/05/1998 Meningococcal Polysaccharide (Menomune) 06/14/1996 Moderna SARS-CoV-2 Monovalen t Vaccination (12+ YRS) 04/17/2020,04/17/2020,03/17/2020 OPV 10/16/1987 PPD TEST 01/10/2001, 9,12/17/1997,12/16 Pneumococcal Conjugate PCV 13 10/08/2015 Pneumococcal Polysaccharide PPV23 04/30/2019 Td, adsorbed 05/15/1996 Tdap 01/11/2011 Typhoid Inactivated 06/23/2016 Typhoid Live 11/05/1998 Typohid AKD SQ 11/15/1995 Yellow Fever 12/16/1996 ZOSTER LIVE 11/22/2008 ZOSTER Recombinant 11/10/2023 Surgical History Surgery Date Site/Laterality Comments CHOLECYSTECTOMY CATARACT EXTRACTION 02/15/2016 - 02/13/2017 Bilateral IMPLANT 02/14/2018 - 02/13/2019 Dr Meri Cortez/Dr Anton TOTAL HIP ARTHROPLASTY 11/15/[address] Ascencio COLONOSCOPY 2021 Medical History Medical History Date Comments Hypertension Cataract see surgery Gastroesophageal reflux Rosacea Personal history of colonic polyps Abnormal glucose h/o elevation p cp is aware of Varicella Hyperlipidemia Coronary artery disease OA (osteoarthritis) BPH (benign prostatic hyperplasia) PAC (premature atrial contraction) VPC's (ventricular premature complexes) SVT (supraventricular tachycardia) Anxiety Stroke (HCC) Nohemi Hatfield MD06/15/2023 9:39 AM TIA to the r eye vision change transient was likely a TIA, stroke to the R eye On rx rosuvastatin statin Now back on asa therapy daily; per pt, he saw neurologist who said he did not have a stroke Prediabetes Cough last 4 months wi th hoarseness nonproductive now was productive but swallows does not look at see pcp notes and med list History of pneumonia Chronic cough since pneumonia around 07/24/24 Seasonal allergies History of shingles 2022 Diverticulosis BPH (benign prostatic hyperplasia) Arthritis DDD (degenerative disc disease), cervical Dental root implant present back sides Family History Medical History Relation Name Comments Bone cancer Father Heart disease Mother Nitza Watts Kidney disease Mother Nitza Watts Relation Name Status Comments Father Mother Nitza Watts Social History Tobacco Use Types Packs/Day Years Used Date Smoking Tobacco: Former Cigarettes 0.5 5 0 02/14/1962 - 11/15/1967 Passive Smoke Exposure: Never Smokeless Tobacco: Never Alcohol Use Standard Drinks/Week Comments Yes 0 (1 standard drink = 0.6 oz pur e alcohol) [facility] Utilities Answer Date Recorded In the past 12 months has th e electric, gas, oil, or water company threatened [...] often do you attend chur ch or uatsdin services? More than 4 times per year 09/18/2024 Do you belong to any clubs o r organizations such as islam groups, unions, fraternal or athletic groups, or [...] any time in the past 12 m [facility], were you homeless or living in a senior care (including now)? No 09/18/2024 Personal Safety Answer [...] file Not on file Not on file Obstetrics History Last Filed Vital Signs Vital Sign Reading Time Taken Comments Blood Pressure 132/74 09/24/2024 2:38 PM CDT Pulse 61 09/24/2024 2:38 PM CDT Temperature 36.2 C (97.2 F) 09/24/2024 2:38 PM CDT Respiratory Rate 16 09/19/2024 7:50 AM CDT Oxygen Saturation 95% 09/24/2024 2:38 PM CDT Inhaled Oxygen Concentration - - Weight 82.5 kg (181 lb 12.8 oz) 09/24/2024 2:38 PM CDT Height 175.3 cm (5' 9) 09/24/2024 2:38 PM CDT Body Mass Index 26.85 09/24/2024 2:38 PM CDT Plan of Treatment Health Maintenance Due Date Last Done Comments Covid-19 Vaccine (5 - 2024-2 5 season) 2023 07/27/2021, 04/17/2020, 04/17/2020, Additional history exists Influenza Vaccine (#1) 2024 , 12/13/2022, 11/25/2021, Additional history exists Well Visit 65+ 01/08/2025 01/09/2024, 11/16, 11/25/2021, Additional history exists Fall Risk Assessment 09/19/2025 09/19/2024, 01/09/2024, 06/15/2023, Additional history exists Depression Screening 09/24/2025 09/24/2024, 07/16/2024, 03/05/2024, Additional history exists DTaP/Tdap/Td Vaccine Discontinued 01/11/2011, 05/15/18 97 Hepatitis B Screening Completed 04/24/2018 , 02/06/1997, 10/15/1996 Pneumococcal vaccine 65+ Completed 04/30/2019, 09/15 Zoster Vaccine Completed 02/22/2024, 10/16, 11/22/2008 Goals Goal Patient Goal Type Associated Problems Recent Progress Patient-Stated? Author Autogenera arnold Goal Care Plan Autogenerated Problem No [employer] Implanted Type Area Design Transferrer Device Identifier Shelf Expiration Date Model / Serial / Lot Other - See Comments Other - see comments Left: Hip Description:LEFT HIP IMPLANT total hip replacement Screw Screw Other - see comments Description:2 SCREWS IN THE TEETH [employer] Trilogy 6.5mm 35mm Self Tap Screw Bone [id number] - [id number] Implanted:Qty : 1 on 09/17/2024 by Zane King MD at [facility] Right: Hip [employer] [id number] 09/05/2033 [id number] / / [id number] [employer] G7 58mm Limit Hole Color Coded Hip G Hemisphere Offset Shell [id number] - [id number] Implanted:Qty : 1 on 09/17/2024 by Zane King MD at [facility] Right: Hip [employer] [id number] 05/01/2034 [id number] / / [id number] [employer] G7 46mm 2 Mobility Hip G Liner Acetabular [id number] - [id number] Implanted:Qty : 1 on 09/17/2024 by Zane King MD at [facility] Right: Hip [employer] [id number] 08/01/2034 [id number] / / [id number] [employer] Trilogy 6.5mm 30mm Self Tap Acetabular Cortical Screw Bone [id number] - [id number] Implanted:Qty : 1 on 09/17/2024 by Zane King MD at [facility] Right: Hip [employer] [id number] 02/28/2034 [id number] / / [id number] [employer] Liner Acetabular Longevity G Od46 Mm Id28 Mm Hip Lumen Sterile Latex Free [id number] - [id number] Implanted:Qty : 1 on 09/17/2024 by Zane King MD at [facility] Right: Hip [employer] [id number] 03/31/2029 [id number] / / [id number] [employer] Implant Femur Sz5 Z1 Hip Strl [id number] - [id number] Implanted:Qty : 1 on 09/17/2024 by Zane King MD at [facility] Right: Hip [employer] [id number] 08/09/2029 [id number] / / [id number] [employer] Head Femoral Hip 01/27 Taper Trilogy Biolox Delta 28mm Ceramic Medium +0mm Offset [id number] - [id number] Implanted:Qty : 1 on 09/17/2024 by Zane King MD at [facility] Right: Hip [employer] [id number] 06/20/2034 [id number] / / [id number] Procedures Procedure Name Priority Date/Time Associated Diagnosis Comments EGFR Routine 09/21/2024 11:42 AM CDT Essential hypertension Mixed hyperlipidemia Hyponatremia COMPREHENSIVE METABOLIC PANEL Routine 09/21/2024 11:42 AM CDT Essential hypertension Mixed hyperlipidemia Hyponatremia SODIUM LEVEL Timed 09/19/2024 7:36 AM CDT EGFR Routine 09/19/2024 2:23 AM CDT DIFFERENTIAL AUTO Routine 09/19/2024 2:2 3 AM CDT CBC WITH AUTO DIFFERENTIAL Routine 09/19/2024 2:23 AM CDT BASIC METABOLIC PANEL Routine 09/19/2024 2:23 AM CDT SODIUM LEVEL Timed 09/19/2024 12:23 AM CDT OSMOLALITY, BLOOD Routine 09/18/2024 4:2 4 PM CDT SODIUM LEVEL Timed 09/18/2024 4:24 PM CDT URINALYSIS, MICROSCOPIC ONLY Routine 09/18/2024 1:55 PM CDT POTASSIUM, URINE, RANDOM Routine 09/18/2024 1:55 PM CDT CREATININE, URINE, RANDOM Routine 09/18/2024 1:55 PM CDT URINALYSIS AND REFLEX TO MICROSCOPIC Routine 09/18/2024 1:55 PM CDT OSMOLALITY, URINE Routine 09/18/2024 1:5 3 PM CDT SODIUM, URINE, RANDOM Routine 09/18/2024 1:53 PM CDT LIPID PANEL STAT 09/18/2024 7:49 AM CDT THYROID FUNCTION CASCADE STAT 09/18/2024 7:49 AM CDT EGFR STAT 09/18/2024 7:49 AM CDT BASIC METABOLIC PANEL STAT 09/18/2024 7:49 AM CDT EGFR Routine 09/18/2024 5:40 AM CDT DIFFERENTIAL AUTO Routine 09/18/2024 5:4 0 AM CDT CBC WITH AUTO DIFFERENTIAL Routine 09/18/2024 5:40 AM CDT BASIC METABOLIC PANEL Routine 09/18/2024 5:40 AM CDT POCT GLUCOSE DEVICE Routine 09/17/2024 3 :47 PM CDT XR HIP RIGHT W PELVIS 2 OR 3 VIEWS ED Urgent/IP Urgent 09/17/2024 2:59 PM CDT DC AN PROCEDURE PLACEHOLDER Routine 09/17/2024 1:09 PM CDT ARTHROPLASTY TOTAL HIP 09/17/2024 12:33 PM CDT Primary osteoarthritis of right hip Case Notes RTHA POCT GLUCOSE DEVICE Routine 09/17/2024 11:07 AM CDT STRESS TEST FOR DUAL READ Schedule Routine, Read Routine (OP Routine) 09/05/2024 2:51 PM CDT Atrial premature contractions VPC (ventricular premature complex) SVT (supraventricular tachycardia) Paroxysmal SVT (supraventricular tachycardia) Preoperative clearance NM MPI SPECT (REST AND/OR STRESS) MULTIPLE STUDIES Schedule Routine, Read Routine (OP Routine) 09/05/2024 2:51 PM CDT Atrial premature contractions VPC (ventricular premature complex) SVT (supraventricular tachycardia) Paroxysmal SVT (supraventricular tachycardia) Preoperative clearance XR CHEST PA LATERAL 2 VIEWS Schedule NANCY, Read NANCY (Appt Today, Awaiting Results) 09/03/2024 12:32 PM CDT Preop testing EGFR Routine 09/03/2024 11:07 AM CDT Preop testing DIFFERENTIAL AUTO Routine 09/03/2024 11:07 AM CDT Preop testing ANTIBODY SCREEN Routine 09/03/2024 11:07 AM CDT Preop testing ABO/RH Routine 09/03/2024 11:07 AM CDT Preop testing COMPREHENSIVE METABOLIC PANEL Routine 09/03/2024 11:07 AM CDT Preop testing CBC WITH AUTO DIFFERENTIAL Routine 09/03/2024 11:07 AM CDT Preop testing HEMOGLOBIN A1C Routine 09/03/2024 11:07 AM CDT Preop testing Elevated hemoglobin A1c TYPE AND SCREEN 14 DAY Routine 09/03/2024 11:07 AM CDT Preop testing INFECTION PREVENTION MRSA ONLY (STAPHYLOCOCCUS AUREUS) PCR Routine 09/03/2024 11:07 AM CDT Preop testing XR CHEST PA LATERAL 2 VIEWS ED Urgent/IP Urgent 07/26/2024 3:39 PM CDT EGFR Routine 07/26/2024 2:19 PM CDT Primary osteoarthritis of right hip Preop testing DIFFERENTIAL AUTO Routine 07/26/2024 2:1 9 PM CDT Primary osteoarthritis of right hip Preop testing ANTIBODY SCREEN Routine 07/26/2024 2:19 PM CDT Primary osteoarthritis of right hip Preop testing ABO/RH Routine 07/26/2024 2:19 PM CDT Primary osteoarthritis of right hip Preop testing COMPREHENSIVE METABOLIC PANEL Routine 07/26/2024 2:19 PM CDT Primary osteoarthritis of right hip Preop testing CBC WITH AUTO DIFFERENTIAL Routine 07/26/2024 2:19 PM CDT Primary osteoarthritis of right hip Preop testing TYPE AND SCREEN 14 DAY Routine 07/26/2024 2:19 PM CDT Primary osteoarthritis of right hip Preop testing INFECTION PREVENTION MRSA ONLY (STAPHYLOCOCCUS AUREUS) PCR Routine 07/26/2024 2:19 PM CDT Primary osteoarthritis of right hip Preop testing XR CHEST PA LATERAL 2 VIEWS Schedule NANCY, Read NANCY (Appt Today, Awaiting Results) 07/16/2024 2:32 PM CDT Chronic cough URINALYSIS, MICROSCOPIC ONLY Routine 07/03/2024 7:38 AM CDT Abnormal glucose Mild carotid artery disease ALBUMIN CREATININE RATIO, URINE Routine 07/03/2024 7:38 AM CDT Abnormal glucose Mild carotid artery disease URINALYSIS AND REFLEX TO MICROSCOPIC AND CULTURE Routine 07/03/2024 7:38 AM CDT Abnormal glucose Mild carotid artery disease HEMOGLOBIN A1C Routine 07/03/2024 7:34 AM CDT Abnormal glucose Mild carotid artery disease EGFR Routine 07/03/2024 7:30 AM CDT Essential hypertension Mild carotid artery disease Atrial premature contractions SVT (supraventricular tachycardia) VPC (ventricular premature complex) Lipids abnormal Mixed hyperlipidemia TIA (transient ischemic attack) DIFFERENTIAL AUTO Routine 07/03/2024 7:3 0 AM CDT Essential hypertension Mild carotid artery disease Atrial premature contractions SVT (supraventricular tachycardia) VPC (ventricular premature complex) Lipids abnormal Mixed hyperlipidemia TIA (transient ischemic attack) CBC WITH AUTO DIFFERENTIAL Routine 07/03/2024 7:30 AM CDT Essential hypertension Mild carotid artery disease Atrial premature contractions SVT (supraventricular tachycardia) VPC (ventricular premature complex) Lipids abnormal Mixed hyperlipidemia TIA (transient ischemic attack) LIPID PANEL Routine 07/03/2024 7:30 AM CDT Essential hypertension Mild carotid artery disease Atrial premature contractions SVT (supraventricular tachycardia) VPC (ventricular premature complex) Lipids abnormal Mixed hyperlipidemia TIA (transient ischemic attack) MAGNESIUM Routine 07/03/2024 7:30 AM CDT Essential hypertension Mild carotid artery disease Atrial premature contractions SVT (supraventricular tachycardia) VPC (ventricular premature complex) Lipids abnormal Mixed hyperlipidemia TIA (transient ischemic attack) THYROID FUNCTION CASCADE Routine 07/03/2024 7:30 AM CDT Essential hypertension Mild carotid artery disease Atrial premature contractions SVT (supraventricular tachycardia) VPC (ventricular premature complex) Lipids abnormal Mixed hyperlipidemia TIA (transient ischemic attack) COMPREHENSIVE METABOLIC PANEL Routine 07/03/2024 7:30 AM CDT Essential hypertension Mild carotid artery disease Atrial premature contractions SVT (supraventricular tachycardia) VPC (ventricular premature complex) Lipids abnormal Mixed hyperlipidemia TIA (transient ischemic attack) from Last 3 Months Results * eGFR (09/21/2024 11:42 AM CDT) eGFR >90 >=60 mL/min/1. 73 m2 Comment: Interpretive Data Reference Interval Normal >/= 90 mL/min/1.73m2 Mildly decreased* 60 - 89 mL/min/1.73m2 Mildly to moderately decreased 45 - 59 mL/min/1.73m2 Moderately to severely decreased 30 - 44 mL/min/1.73m2 Severely decreased 15 - 29 mL/min/1.73m2 Kidney Failure < 15 mL/min/1.73m2 *Relative to young adult level Estimated glomerular filtration rate is determined by the 2020 CKD-EPI equation recommended by the National Kidney Foundation (A Unifying Approach to GFR Estimation: Recommendations of the NKF-ASK Task Force on Reassessing the Inclusion of Race in Diagnosing Kidney Disease, JASN 2020). The CKD-EPI equation should not be used for patients with unstable renal function and has not been validated in children and those over 70. Current interpretive data was last reviewed 2020. Testing performed by: [facility], [address] [place] [address], [place]., [address] Blood 09/21/2024 11:4 2 AM CDT 09/21/2024 12:40 PM CDT us Nohemi Hatfield MD LAB BLOOD ORDERABLES Final R esult [facility] [address] [facility] Department [place] [address] * (ABNORMAL) Comprehensive metabolic panel (09/21/2024 11:42 AM CDT) Sodium 132(L) 135 - 145 mmol/L Comment:Testing performed by : [address] [address] Potassium, pl 5.1(H) 3.3 - 4.9 mmol/L [facility] Comment:Testing performed by : [address] [address] Chloride 92(L) 97 - 110 mmol/L [facility] Comment:Testing performed by : [address] [address] CO2 29 22 - 32 mmol/L [facility] Comment:Testing performed by : [address] [address] Anion gap 11 2 - 15 mmol/L [facility] Comment:Testing performed by : [address] [address] BUN 19 6 - 25 mg/dL [facility] Comment:Testing performed by : [address] [address] Creatinine 0.70(L) 0.80 - 1.30 mg/dL [facility] Comment:Testing performed by : [address] [address] Glucose 126 70 - 199 mg/dL [facility] Comment: Interpretive Data Fasting glucose >/= 126 mg/dl is diagnostic for diabetes. Fasting is defined as no caloric intake for at least 8 hours. Fasting glucose between 100 mg/dl to 125 mg/dl is diagnostic of prediabetes. In a patient with classic symptoms of hyperglycemia or hyperglycemic crisis, a random glucose >/= 200 mg/dl is diagnostic for diabetes. In the absence of unequivocal hyperglycemia, results should be confirmed by repeat testing. The classification and Diagnosis of Diabetes Diabetes Care 202; 46: S19-S40. Current interpretive data was last revised 2022. Testing performed by: [facility], [address] [place] [address]., [address] Calcium 9.8 8.5 - 10.3 mg/dL [facility] Comment:Testing performed by : [address] [address] Bilirubin, total 1.1 0.1 - 1.2 mg/dL [facility] Comment:Testing performed by : [address] [address] Protein, pl 7.5 6.5 - 8.5 g/dL [facility] Comment:Testing performed by : [address] [address] Albumin 4.4 3.5 - 5.0 g/dL [facility] Comment:Testing performed by : [address] [address] Alk phos 69 40 - 130 Units/L [facility] Comment:Testing performed by : [address] [address] ALT 27 7 - 55 Units/L [facility] Comment:Testing performed by : [address] [address] AST 47 10 - 50 Units/L [facility] Comment:Testing performed by : [address] [address] Blood 09/21/2024 11:4 2 AM CDT 09/21/2024 12:40 PM CDT us Nohemi Hatfield MD LAB BLOOD ORDERABLES Final R esult [facility] [address] [facility] Department [place] [address] * (ABNORMAL) Sodium level (09/19/2024 7:36 AM CDT) Sodium 131(L) 135 - 145 mmol/L Blood 09/19/2024 7:36 AM CDT 09/19/2024 7:47 AM CDT us Bob Shaw MD LAB BLOOD ORDERABLES Final Resu lt Performing Organization Address City/[facility]/ZIP Co de Phone Number DARLEN[facility] [address] [address] * eGFR (09/19/2024 2:23 AM CDT) Pathologist [facility] eGFR >90 >=60 mL/min/1. 73 m2 Comment: Interpretive Data Reference Interval Normal >/= 90 mL/min/1.73m2 Mildly decreased* 60 - 89 mL/min/1.73m2 Mildly to moderately decreased 45 - 59 mL/min/1.73m2 Moderately to severely decreased 30 - 44 mL/min/1.73m2 Severely decreased 15 - 29 mL/min/1.73m2 Kidney Failure < 15 mL/min/1.73m2 *Relative to young adult level Estimated glomerular filtration rate is determined by the 2020 CKD-EPI equation recommended by the National Kidney Foundation (A Unifying Approach to GFR Estimation: Recommendations of the NKF-ASK Task Force on Reassessing the Inclusion of Race in Diagnosing Kidney Disease, JASN 2020). The CKD-EPI equation should not be used for patients with unstable renal function and has not been validated in children and those over 70. Current interpretive data was last reviewed 2020. Blood 09/19/2024 2:23 AM CDT 09/19/2024 2:49 AM CDT us Zane King MD LAB BLOOD ORDERABLES Final Result Performing Organization Address [facility]/ZIP Co de Phone Number DARLENE [address] [place] [address] * (ABNORMAL) Differential, auto (09/19/2024 2:23 AM CDT) Pathologist [facility] Neutrophil abs 8.97(H) 1.50 - 6.50 K/cumm Imm gran abs 0.04 0.00 - 0.10 K/cumm [facility] Lymphocyte abs 0.59(L) 0.80 - 3.30 K/cumm [facility] Monocyte abs 1.06(H) 0.20 - 0.80 K/cumm [facility] Eosinophil abs 0.00 0.00 - 0.50 K/cumm [facility] Basophil abs 0.00 0.00 - 0.10 K/cumm [facility] Neutrophil pct 84.2 % [facility] Comment: Interpretive Data Percent cell count reference ranges are not reported, since discordance with absolute values may lead to misinterpretation of CBC data. Current Interpretive Data was last revised on 2017. Imm gran pct 0.4 % [facility] Comment: Interpretive Data Percent cell count reference ranges are not reported, since discordance with absolute values may lead to misinterpretation of CBC data. Current Interpretive Data was last revised on 2017. Lymphocyte pct 5.5 % [facility] Comment: Interpretive Data Percent cell count reference ranges are not reported, since discordance with absolute values may lead to misinterpretation of CBC data. Current Interpretive Data was last revised on 2017. Monocyte pct 9.9 % [facility] Comment: Interpretive Data Percent cell count reference ranges are not reported, since discordance with absolute values may lead to misinterpretation of CBC data. Current Interpretive Data was last revised on 2017. Eosinophil pct 0.0 % [facility] Comment: Interpretive Data Percent cell count reference ranges are not reported, since discordance with absolute values may lead to misinterpretation of CBC data. Current Interpretive Data was last revised on 2017. Basophil pct 0.0 % [facility] Comment: Interpretive Data Percent cell count reference ranges are not reported, since discordance with absolute values may lead to misinterpretation of CBC data. Current Interpretive Data was last revised on 2017. Blood 09/19/2024 2:2 3 AM CDT 09/19/2024 2:50 AM CDT Zane King MD LAB BLOOD ORDERABLES Final Result [facility] [address] [facility] Department [place] [address] * (ABNORMAL) CBC with auto differential (09/19/2024 2:23 AM CDT) WBC 10.66(H) 3.80 - 9.90 K/cumm Hgb 11.9(L) 13.0 - 17.5 g/dL [facility] Hct 34.9(L) 38.9 - 50.3 % [facility] Plt 169 150 - 400 K/cumm [facility] MPV 9.5 9.1 - 12.3 fL [facility] RBC 3.94(L) 4.30 - 5.80 M/cumm [facility] MCV 88.6 81.3 - 96.4 fL [facility] MCH 30.2 27.1 - 33.3 pg [facility] MCHC 34.1 32.3 - 35.7 g/dL [facility] RDW CV 12.9 11.1 - 14.9 % [facility] RDW SD 41.7 35.7 - 48.1 fL [facility] NRBC abs 0.00 0.00 - 0.01 K/cumm [facility] Blood 09/19/2024 2:23 AM CDT 09/19/2024 2:50 AM CDT Zane King MD LAB BLOOD ORDERABLES Final Result [place] [id number] [facility] Department [place] [address] * (ABNORMAL) Basic metabolic panel (09/19/2024 2:23 AM CDT) [facility] Sodium 132(L) 135 - 145 mmol/L Potassium, pl 4.9 3.3 - 4.9 mmol/L [facility] Chloride 98 97 - 110 mmol/L [facility] CO2 26 22 - 32 mmol/L [facility] Anion gap 8 2 - 15 mmol/L [facility] BUN 15 6 - 25 mg/dL [facility] Creatinine 0.63(L) 0.80 - 1.30 mg/dL [facility] Glucose 156 70 - 199 mg/dL [facility] Comment: Interpretive Data Fasting glucose >/= 126 mg/dl is diagnostic for diabetes. Fasting is defined as no caloric intake for at least 8 hours. Fasting glucose between 100 mg/dl to 125 mg/dl is diagnostic of prediabetes. In a patient with classic symptoms of hyperglycemia or hyperglycemic crisis, a random glucose >/= 200 mg/dl is diagnostic for diabetes. In the absence of unequivocal hyperglycemia, results should be confirmed by repeat testing. The classification and Diagnosis of Diabetes Diabetes Care 2021; 46: S19-S40. Current interpretive data was last revised 2022. Calcium 9.3 8.5 - 10.3 mg/dL [facility] Blood 09/19/2024 2:23 AM CDT 09/19/2024 2:49 AM CDT Zane King MD LAB BLOOD ORDERABLES Final Result Performing Organization Address City/[facility]/ZIP Co de Phone Number [address] [place] [address] * (ABNORMAL) Sodium level (09/19/2024 12:23 AM CDT) Sodium 131(L) 135 - 145 mmol/L Blood 09/19/2024 12:2 3 AM CDT 09/19/2024 12:46 AM CDT Bob Shaw MD LAB BLOOD ORDERABLES Final Resu lt Performing Organization Address [facility] Co de Phone Number [address] [place] [address] * (ABNORMAL) Sodium level (09/18/2024 4:24 PM CDT) Sodium 122(L) 135 - 145 mmol/L Blood 09/18/2024 4:2 4 PM CDT 09/18/2024 4:55 PM CDT Bob Shaw MD LAB BLOOD ORDERABLES Final Resu lt Performing Organization Address City/[facility] Co de Phone Number [address] [place] [address] * Osmolality, blood (09/18/2024 4:24 PM CDT) Osmo 279 275 - 295 mOsm/kg Blood 09/18/2024 4:24 PM CDT 09/18/2024 4:55 PM CDT Anaid Garcia NP LAB BLOOD ORDERABLES Final R esult Performing Organization Address [facility] Co de Phone Number [facility] [address] [address] * (ABNORMAL) Urinalysis reflex to microscopic (09/18/2024 1:55 PM CDT) Color, ur Yellow Yellow Clarity, ur Clear Clear [facility] Specific gravity, ur 1.013 1.003 - 1.030 [facility] pH, urine 5.5 [facility] Comment: Interpretive Data U rine pH is affected by diet, medications, systemic acid-base disturbances, and renal tubular function. pH may affect urinary stone formation. For example, urine pH below 6.0 may help reduce the tendency for calcium phosphate stones and pH greater than 6.0 may reduce the tendency for uric acid stone formation. Source: [facility] Current Interpretive Data was last revised on 2017 Protein, ur ql Negative Negative [facility] Glucose, ur ql Negative Negative [facility] Ketones, ur Negative Negative [facility] Bilirubin, ur Negative Negative [facility] Blood, ur 2+(A) Negative [facility] Urobilinogen, ur <2.0 <2.0 mg/dL [facility] Nitrite, ur Negative Negative [facility] Leukocyte esterase, ur Negative Negative [facility] UA reflex comment Reflex to microscopic UA will be performed. [facility] Urine 09/18/2024 1:55 PM CDT 09/18/2024 2:00 PM CDT Bryan Sheikh MD LAB URINE ORDERABLE S Final Result Performing Organization Address [facility]/ZIP Co de Phone Number [facility] [address] [place] [address] * Potassium, urine, random (09/18/2024 1:55 PM CDT) Potassium conc, ur 30.3 mmol/L Comment: Interpretive Data No reference range established. Current interpretive data was last revised 2018. Urine 09/18/2024 1:55 PM CDT 09/18/2024 2:01 PM CDT Bryan Sheikh MD LAB URINE ORDERABLE S Final Result Performing Organization Address [facility] Co de Phone Number [address] [address] * Creatinine, urine, random (09/18/2024 1:55 PM CDT) Creatinine Ur 44.9 mg/dL Comment: Interpretive Data No reference range established. Current interpretive data was last revised 2018. Urine 09/18/2024 1:55 PM CDT 09/18/2024 2:01 PM CDT Bryan Sheikh MD LAB URINE ORDERABLE S Final Result Performing Organization Address [facility] Phone Number [address] [address] * (ABNORMAL) Urinalysis, microscopic only (09/18/2024 1:55 PM CDT) WBC, ur 0-5 0 - 5 /HPF RBC, ur 6-10(A) 0 - 2 /HPF [facility] Amorphous crystals, ur Trace(A) [facility] Urine 09/18/2024 1:55 PM CDT 09/18/2024 2:00 PM CDT Bryan Sheikh MD LAB URINE ORDERABLE S Final Result Performing Organization Address [facility] de Phone Number [address] [place] [address] * Sodium, urine, random (09/18/2024 1:53 PM CDT) Sodium, ur 49 mmol/L Comment: Interpretive Data No reference range established. Current interpretive data was last revised 2018. Urine 09/18/2024 1:53 PM CDT 09/18/2024 2:01 PM CDT Anaid [place] [employer] LAB URINE ORDERABLES Final R esult [facility] [address] [place] [address] * Osmolality, urine (09/18/2024 1:53 PM CDT) Pathologist [facility] Osmo, ur 416 300 - 800 mOsm/kg Urine 09/18/2024 1:53 PM CDT 09/18/2024 2:00 PM CDT [employer] LAB URINE ORDERABLES [facility] Performing Organization Address City/[facility]/ZIP Co de Phone Number ANNA[address] [place] [address] * eGFR (09/18/2024 7:49 AM CDT) Pathologist [facility] eGFR >90 >=60 mL/min/1. 73 m2 Comment: Interpretive Data Reference Interval Normal >/= 90 mL/min/1.73m2 Mildly decreased* 60 - 89 mL/min/1.73m2 Mildly to moderately decreased 45 - 59 mL/min/1.73m2 Moderately to severely decreased 30 - 44 mL/min/1.73m2 Severely decreased 15 - 29 mL/min/1.73m2 Kidney Failure < 15 mL/min/1.73m2 *Relative to young adult level Estimated glomerular filtration rate is determined by the 2020 CKD-EPI equation recommended by the National Kidney Foundation (A Unifying Approach to GFR Estimation: Recommendations of the NKF-ASK Task Force on Reassessing the Inclusion of Race in Diagnosing Kidney Disease, JASN 2020). The CKD-EPI equation should not be used for patients with unstable renal function and has not been validated in children and those over 70. Current interpretive data was last reviewed 2020. Blood 09/18/2024 7:49 AM CDT 09/18/2024 8:01 AM CDT Zane King MD LAB BLOOD ORDERABLES Final Result Performing Organization Address City/[facility]/ZIP Co de Phone Number [address] [address] * Thyroid Function [place] (09/18/2024 7:49 AM CDT) TSH 1.38 0.30 - 4.20 mcIUnit/mL Blood 09/18/2024 7:49 AM CDT 09/18/2024 8:01 AM CDT Anaid Garcia NP LAB BLOOD ORDERABLES Final R esult Performing Organization Address [facility] Co de Phone Number [address] [address] * Lipid panel (09/18/2024 7:49 AM CDT) Cholesterol 95 30 - 199 mg/dL Comment: Interpretive Data Ages < or = 19 years Acceptable: <170 mg/dL Borderline high: 170-199 mg/dL High: >or= 200 mg/dL Ages > or = 20 years Desirable: <200 mg/dL Borderline high: 200-239 mg/dL High: >or= 240 mg/dL Literature References: 1. Expert Panel on Integrated Guidelines for Cardiovascular Health and Risk Reduction in Children and Adolescents. Pediatrics 2011;128:S213 2. NCEP Expert Panel. Circulation 2004;110:227 Current Interpretive Data was last revised on 2017. Triglycerides 60 <=149 mg/dL [facility] Comment: Interpretive Data Ages < or = 9 years Acceptable: <75 mg/dL Borderline high: 75-99 mg/dL High: >or= 100 mg/dL Ages 10 to 20 years Acceptable: <90 mg/dL Borderline high: 90-129 mg/dL High: >or= 130 mg/dL Ages > or = 20 years Desirable: <150 mg/dL Borderline high: 150-199 mg/dL High: 200-499 mg/dL Very high: >or= 499 mg/dL Literature References: 1. Expert Panel on Integrated Guidelines for Cardiovascular Health and Risk Reduction in Children and Adolescents. Pediatrics 2011;128:S213 2. NCEP Expert Panel. Circulation 2004;110:227 Current Interpretive Data was last revised on 2017. HDL 40 >=40 mg/dL [facility] Comment: Interpretive Data Ages < or = 19 years Acceptable: >45 mg/dL Borderline low: 40-45 mg/dL Low: <40 mg/dL Ages > or = 20 years Desirable: >or= 60 mg/dL Low: <40 mg/dL Literature References: 1. Expert Panel on Integrated Guidelines for Cardiovascular Health and Risk Reduction in Children and Adolescents. Pediatrics 2011;128:S213 2. NCEP Expert Panel. Circulation 2004;110:227 Current Interpretive Data was last revised on 2017. LDL, calculated 41 <=129 mg/dL [facility] Comment: Interpretive Data Ages < or = 19 years Acceptable: <110 mg/dL Borderline high: 110-129 mg/dL High: >or= 130 mg/dL Ages > or = 20 years Optimal: <100 mg/dL Near optimal: 100-129 mg/dL Borderline high: 130-159 mg/dL High: >160 mg/dL Calculated using the Phil LDL-C estimating equation. This equation was implemented on 2023. Prior to this date LDL-C was estimated using the Friedewald equation. Literature References: 1. Expert Panel on Integrated Guidelines for Cardiovascular Health and Risk Reduction in Children and Adolescents. Pediatrics 2011;128:S213 2. NCEP Expert Panel. Circulation 2004;110:227 3. Phil Gudino al. TERRI Cardiol. 2020 June 14;5(5):540-548. doi: 10.1001/jamacardio.2020.0013 Current Interpretive Data was last revised on 2023. Non-HDL Cholesterol 55 mg/dL [facility] Comment: Interpretive Data Ages < or = 19 years Acceptable: <120 mg/dL Borderline high: 120-144 mg/dL High: >145 mg/dL Ages > or = 20 years When triglycerides are >200 mg/dL, Non-HDL cholesterol is a secondary target of therapy with treatment goals that are 30 mg/dL greater than the LDL cholesterol target. Literature References: 1. Expert Panel on Integrated Guidelines for Cardiovascular Health and Risk Reduction in Children and Adolescents. Pediatrics 2011;128:S213 2. NCEP Expert Panel. Circulation 2004;110:227 Current Interpretive Data was last revised on 2017. Chol/HDL ratio 2 [facility] Blood 09/18/2024 7:49 AM CDT 09/18/2024 8:01 AM CDT Anaid Garcia NP LAB BLOOD ORDERABLES Final R esult [facility] [address] [facility] Department [place] [address] * (ABNORMAL) Basic metabolic panel (09/18/2024 7:49 AM CDT) Sodium 128(L) 135 - 145 mmol/L Comment:Result corrected due to instrument error at request of [facility], Dr. Anibal Mejias. Potassium, pl 4.2 3.3 - 4.9 mmol/L [facility] Chloride 91(L) 97 - 110 mmol/L [facility] CO2 22 22 - 32 mmol/L [facility] Anion gap 8 2 - 15 mmol/L [facility] BUN 12 6 - 25 mg/dL [facility] Creatinine 0.66(L) 0.80 - 1.30 mg/dL [facility] Glucose 183 70 - 199 mg/dL [facility] Comment: Interpretive Data Fasting glucose >/= 126 mg/dl is diagnostic for diabetes. Fasting is defined as no caloric intake for at least 8 hours. Fasting glucose between 100 mg/dl to 125 mg/dl is diagnostic of prediabetes. In a patient with classic symptoms of hyperglycemia or hyperglycemic crisis, a random glucose >/= 200 mg/dl is diagnostic for diabetes. In the absence of unequivocal hyperglycemia, results should be confirmed by repeat testing. The classification and Diagnosis of Diabetes Diabetes Care 2021; 46: S19-S40. Current interpretive data was last revised 2022. Calcium 9.1 8.5 - 10.3 mg/dL [facility] Blood 09/18/2024 7:49 AM CDT 09/18/2024 8:01 AM CDT Zane King MD LAB BLOOD ORDERABLES Edite d Result - Final Performing Organization Address City/[facility]/ZIP Co de Phone Number ANNA[address] [employer] [place] [address] * eGFR (09/18/2024 5:40 AM CDT) eGFR >90 >=60 mL/min/1. 73 m2 Comment: Interpretive Data Reference Interval Normal >/= 90 mL/min/1.73m2 Mildly decreased* 60 - 89 mL/min/1.73m2 Mildly to moderately decreased 45 - 59 mL/min/1.73m2 Moderately to severely decreased 30 - 44 mL/min/1.73m2 Severely decreased 15 - 29 mL/min/1.73m2 Kidney Failure < 15 mL/min/1.73m2 *Relative to young adult level Estimated glomerular filtration rate is determined by the 2020 CKD-EPI equation recommended by the National Kidney Foundation (A Unifying Approach to GFR Estimation: Recommendations of the NKF-ASK Task Force on Reassessing the Inclusion of Race in Diagnosing Kidney Disease, JASN 2020). The CKD-EPI equation should not be used for patients with unstable renal function and has not been validated in children and those over 70. Current interpretive data was last reviewed 2020. Blood 09/18/2024 5:40 AM CDT 09/18/2024 6:43 AM CDT Zane King MD LAB BLOOD ORDERABLES Final Result ANNA[address] [place] [address] * (ABNORMAL) Differential, auto (09/18/2024 5:40 AM CDT) Neutrophil abs 8.15(H) 1.50 - 6.50 K/cumm Imm gran abs 0.04 0.00 - 0.10 K/cumm [facility] Lymphocyte abs 0.30(L) 0.80 - 3.30 K/cumm [facility] Monocyte abs 0.37 0.20 - 0.80 K/cumm [facility] Eosinophil abs 0.00 0.00 - 0.50 K/cumm [facility] Basophil abs 0.01 0.00 - 0.10 K/cumm [facility] Neutrophil pct 91.8 % [facility] Comment: Interpretive Data Percent cell count reference ranges are not reported, since discordance with absolute values may lead to misinterpretation of CBC data. Current Interpretive Data was last revised on 2017. Imm gran pct 0.5 % [facility] Comment: Interpretive Data Percent cell count reference ranges are not reported, since discordance with absolute values may lead to misinterpretation of CBC data. Current Interpretive Data was last revised on 2017. Lymphocyte pct 3.4 % [facility] Comment: Interpretive Data Percent cell count reference ranges are not reported, since discordance with absolute values may lead to misinterpretation of CBC data. Current Interpretive Data was last revised on 2017. Monocyte pct 4.2 % [facility] Comment: Interpretive Data Percent cell count reference ranges are not reported, since discordance with absolute values may lead to misinterpretation of CBC data. Current Interpretive Data was last revised on 2017. Eosinophil pct 0.0 % [facility] Comment: Interpretive Data Percent cell count reference ranges are not reported, since discordance with absolute values may lead to misinterpretation of CBC data. Current Interpretive Data was last revised on 2017. Basophil pct 0.1 % [facility] Comment: Interpretive Data Percent cell count reference ranges are not reported, since discordance with absolute values may lead to misinterpretation of CBC data. Current Interpretive Data was last revised on 2017. Blood 09/18/2024 5:40 AM CDT 09/18/2024 6:43 AM CDT Zane King MD LAB BLOOD ORDERABLES Final Result [facility] [address] [facility] Department [place] [address] * (ABNORMAL) CBC with auto differential (09/18/2024 5:40 AM CDT) [facility] WBC 8.87 3.80 - 9.90 K/cumm Hgb 13.4 13.0 - 17.5 g/dL [facility] Hct 38.6(L) 38.9 - 50.3 % [facility] Plt 182 150 - 400 K/cumm [facility] MPV 9.8 9.1 - 12.3 fL [facility] RBC 4.41 4.30 - 5.80 M/cumm [facility] MCV 87.5 81.3 - 96.4 fL [facility] MCH 30.4 27.1 - 33.3 pg [facility] MCHC 34.7 32.3 - 35.7 g/dL [facility] RDW CV 12.7 11.1 - 14.9 % [facility] RDW SD 40.5 35.7 - 48.1 fL [facility] NRBC abs 0.00 0.00 - 0.01 K/cumm [facility] Blood 09/18/2024 5:40 AM CDT 09/18/2024 6:43 AM CDT Zane King MD LAB BLOOD ORDERABLES Final Result [facility] [address] [facility] Department [place] [address] * (ABNORMAL) Basic metabolic panel (09/18/2024 5:40 AM CDT) [facility] Sodium 128(L) 135 - 145 mmol/L Comment: Result corrected due to instrument error at request of [facility], Dr. Anibal Mejias. Following concerns the original result. Critical Result called to and read back by Dahiana [id number], DATE: 2024-09-18 07:19:11 BY: [email or web address] Potassium, pl 4.3 3.3 - 4.9 mmol/L [facility] Comment:Hemolyzed; Potassium value may be falsely elevated by as much as 1.0 mmol/L. Suggest redraw and reanalysis. Chloride 90(L) 97 - 110 mmol/L [facility] CO2 21(L) 22 - 32 mmol/L [facility] Anion gap 9 2 - 15 mmol/L [facility] BUN 12 6 - 25 mg/dL [facility] Creatinine 0.64(L) 0.80 - 1.30 mg/dL [facility] Glucose 179 70 - 199 mg/dL [facility] Comment: Interpretive Data Fasting glucose >/= 126 mg/dl is diagnostic for diabetes. Fasting is defined as no caloric intake for at least 8 hours. Fasting glucose between 100 mg/dl to 125 mg/dl is diagnostic of prediabetes. In a patient with classic symptoms of hyperglycemia or hyperglycemic crisis, a random glucose >/= 200 mg/dl is diagnostic for diabetes. In the absence of unequivocal hyperglycemia, results should be confirmed by repeat testing. The classification and Diagnosis of Diabetes Diabetes Care 202; 46: S19-S40. Current interpretive data was last revised 2022. Calcium 9.0 8.5 - 10.3 mg/dL [facility] Blood 09/18/2024 5:40 AM CDT 09/18/2024 6:43 AM CDT Zane King MD LAB BLOOD ORDERABLES Edite d Result - Final Performing Organization Address [facility] Co de Phone Number [address] [place] [address] * POCT glucose (09/17/2024 3:47 PM CDT) [facility] Glucose, POC 113 70 - 199 mg/dL Blood 09/17/2024 3:4 7 PM CDT 09/17/2024 3:47 PM CDT Zane King MD LAB POCT ORDERABLES - SEVERINO CE Final Result Performing Organization Address [facility] Co de Phone Number [address] [place] [address] * XR Hip Right 2 or 3 Views W Pelvis (09/17/2024 2:59 PM CDT) Anatomical Region Laterality Modality Lower Extremities, Hip, Pelvis Right C omputed Radiography 09/17/2024 9:41 PM CDT Narrative 09/17/2024 9:43 PM CDT EXAM DESCRIPTION: XR HIP RIGHT 2 OR 3 VIEWS W PELVIS REASON FOR STUDY: Hip replacement, asymptomatic, follow up, ortho with xtable Post Op Right Hip Arthroplasty TECHNIQUE: AP view of the pelvis and cross-table lateral view of right hip COMPARISON: 06/14/2024 FINDINGS: There has been interval total right hip arthroplasty which is in near anatomic position. There is no acute fracture. Total left hip arthroplasty projects over the expected position. There is postsurgical soft tissue gas with soft tissue swelling. The symphysis pubis joint is normal. Surgical skin abdirizak are present with a wound VAC applied. IMPRESSION: Interval total right hip arthroplasty in near anatomic position. THIS IS AN ELECTRONICALLY VERIFIED FINAL REPORT 09/17/2024 9:43 PM - Electronically signed by Charlene Negrete M.D. AT T: Report ID: [id number] Reading Location: [id number] Procedure Note Charlene Negrete MD - 09/17/2024 EXAM DESCRIPTION: XR HIP RIGHT 2 OR 3 VIEWS W PELVIS REASON FOR STUDY: Hip replacement, asymptomatic, follow up, ortho withxtable Post Op Right Hip Arthroplasty TECHNIQUE: AP view of the pelvis and cross-table lateral view of righthip COMPARISON: 06/14/2024 FINDINGS: There has been interval total right hip arthroplasty which is in near anatomic position. There is no acute fracture. Total left hip arthroplasty projects over the expected position. There is postsurgicalsoft tissue gas with soft tissue swelling. The symphysis pubis joint isnormal. Surgical skin abdirizak are present with a wound VAC applied. IMPRESSION: Interval total right hip arthroplasty in near anatomicposition. THIS IS AN ELECTRONICALLY VERIFIED FINAL REPORT 09/17/2024 9:43 PM - Electronically signed by Charlene Negrete M.D. AT T: Report ID: [id number] Reading Location: [id number] Zane King MD IMG XR PROCEDURES Final Re sult * DC AN PROCEDURE PLACEHOLDER (09/17/2024 1:09 PM CDT) Narrative Mitzy Simon CRNA - 09/17/2024 1:09 PM CDT Mitzy Simon CRNA 09/17/2024 1:45 PM Spinal Block Patient location: OR End time: 09/17/2024 12:46 PM Reason for block: primary anesthetic Staff: Supervising provider: India French MD Placed by: FLOOR CARE SPECIALIST:Mitzy Simon CRNA Procedure prep: Preprocedure checklist: patient identified, procedure contraindications assessed, procedure consent, surgical consent, risks, benefits and alternatives discussed, monitors and equipment checked and timeout performed Patient position: sitting Procedure performed while patient: awake Monitoring: ECG, oximetry and blood pressure Prep solution: povidone-iodine PPE: provider hat/mask, sterile gloves and sterile drape Skin infiltrated with lidocaine 1%: yes Spinal: Approach: midline Introducer used: yes Location: L4-5 Spinal injection: CSF demonstrated and no paresthesias noted Number of attempts: 1 Spinal Needle: Needle type: pencil-tip Needle gauge: 25 G Needle length: 9 cm Assessment: Sensory deficit - left: T6 Sensory deficit - right: T6 Events: patient tolerated procedure well with no complications India French MD ANESTHESIA ORDERABLES Edited Result - Final * POCT glucose (09/17/2024 11:07 AM CDT) Glucose, POC 131 70 - 199 mg/dL Glucose comment 1 Use This Result [facility] Glucose comment 2 RN/MD Notified [facility] VEL[facility]CO Blood 09/17/2024 11:0 7 AM CDT 09/17/2024 11:07 AM CDT Zane King MD LAB POCT ORDERABLES - SEVERINO CE Final Result [facility] [id number] [facility] Department [place] [address] * NM MPI SPECT (Rest and/or Stress) Multiple Studies (09/05/2024 2:51 PM CDT) Anatomical Region Laterality Modality Body N/A Nuclear Medicine Impressions 09/05/2024 3:26 PM CDT 1. No scintigraphic evidence of myocardial ischemia. 2. Normal left ventricular size and systolic function. I personally supervised and interpreted the stress test. Copy to Nohemi Hatfield MD John Lehman, MD 09/05/2024 Narrative 09/05/2024 3:26 PM CDT Patient Id: Nathan Watts is a 83 y.o. male. MR#: [id number] Study date: 09/05/2024 EXAM DESCRIPTION: NM MPI SPECT (REST AND/OR STRESS) MULTIPLE STUDIES RADIOPHARMACEUTICAL: Rest: 11 mCi Tc-99m tetrofosmin via right antecubital fossa IV site Pharmacologic Stress: 33 mCi Tc-99m tetrofosmin via right antecubital fossa IV site REASON FOR STUDY: hypertension, hyperlipidemia, preoperative cardiovascular examination, transient ischemic attack, carotid artery stenosis TECHNIQUE: After informed consent, standard myocardial perfusion SPECT images were obtained after resting tracer injection. Subsequently, an intravenous infusion of regadenoson was performed. Standard myocardial perfusion images were obtained after tracer injection at the peak effect of the drug. STRESS PORTION AND EKG: See separately dictated report for stress portion and EKG. FINDINGS: Study quality: no motion artifact. Image quality is adequate at rest and at stress. There is a medium size, moderate severity, nontransmural, fixed, inferior perfusion defect, which improves with prone imaging, suggestive of diaphragmatic attenuation artifact. No significant reversible myocardial perfusion defects are seen. Gated post-stress images demonstrate normal left ventricular wall thickening, without global or focal wall motion abnormality. The left ventricular volume is normal . The left ventricular ejection fraction is 59 % (normal >45%). There is no evidence of transient ischemic dilation with calculated TID ratio of 1.10 . Suresh Ascencio MD IMG NM PROCEDURES Final Re sult * Stress Test for Myocardial Perfusion (09/05/2024 2:51 PM CDT) Anatomical Region Laterality Modality Nuclear Medicine Impressions 09/05/2024 2:07 PM CDT 1. EKG portion of the stress test is negative for ischemia. 2. Nuclear images pending. I personally supervised and interpreted the stress test. Copy to Nohemi Hatfield MD John Lehman, MD 09/05/2024 Narrative 09/05/2024 2:07 PM CDT Patient Id: Nathan Watts is a 83 y.o. male. MR#: [id number] Study date: 09/05/2024 EXAM DESCRIPTION: STRESS LEXISCAN MYOVIEW TECHNIQUE: Baseline EKG: Normal sinus rhythm, normal. Baseline blood pressure was 167/89 , and baseline heart rate was 65 . Stress test was performed according to Lexiscan protocol. Blood pressure after Lexiscan infusion was 173/104, and post infusion heart rate was 88. There were no EKG changes suggesting ischemia. There were no arrhythmias. SYMPTOMS: Patient denied chest pain or shortness of breath. Suresh Ascencio MD CV STRESS PROCEDURES Final Result * XR Chest Pa Lateral 2 Views (09/03/2024 12:32 PM CDT) Anatomical Region Laterality Modality Body, Chest N/A Computed Radiogr aphy 09/05/2024 12:2 2 PM CDT Narrative 09/05/2024 12:23 PM CDT EXAM DESCRIPTION: XR CHEST PA LATERAL 2 VIEWS REASON FOR STUDY: Pneumonia, Pre op Surgery Pre op Surgery; Pneumonia Was delayed 6 weeks needed a new one TECHNIQUE: 2 radiographic view(s) of the chest. COMPARISON: 07/26/2024. FINDINGS: LUNGS: No definite pneumonic consolidation. There is mild right base atelectasis.. No pleural effusion or pneumothorax identified. HEART/MEDIASTINUM: Heart size and cardiomediastinal contours are unchanged. Heart size is within normal limits. LINES/TUBES: None. BONES: No acute displaced fracture or aggressive bone lesion is seen. The visualized upper abdomen is grossly unremarkable. Moderate degenerative disc disease is noted. Cholecystectomy clips are present. IMPRESSION: No acute cardiopulmonary findings. Mild right base atelectasis. THIS IS AN ELECTRONICALLY VERIFIED FINAL REPORT 09/05/2024 12:23 PM - Electronically signed by Jarett Loja M.D. MZ T: Report ID: [id number] Reading Location: [place] [address] Procedure Note Jarett Loja MD - 09/05/2024 EXAM DESCRIPTION: XR CHEST PA LATERAL 2 VIEWS REASON FOR STUDY: Pneumonia, Pre op Surgery Pre op Surgery; Pneumonia Was delayed 6 weeks needed a new one TECHNIQUE: 2 radiographic view(s) of the chest. COMPARISON: 07/26/2024. FINDINGS: LUNGS: No definite pneumonic consolidation. There is mildright base atelectasis.. No pleural effusion or pneumothorax identified. HEART/MEDIASTINUM: Heart size and cardiomediastinal contours areunchanged. Heart size is within normal limits. LINES/TUBES: None. BONES: No acute displaced fracture or aggressive bone lesion is seen. The visualized upper abdomen is grossly unremarkable. Moderatedegenerative disc disease is noted. Cholecystectomy clips are present. IMPRESSION: No acute cardiopulmonary findings. Mild right baseatelectasis. THIS IS AN ELECTRONICALLY VERIFIED FINAL REPORT 09/05/2024 12:23 PM - Electronically signed by Jarett Loja M.D. MZ T: Report ID: [id number] Reading Location: [place] [address] us Tata Dhaliwal NP IMG XR PROCEDURES Fi nal Result * eGFR (09/03/2024 11:07 AM CDT) eGFR 90 >=60 mL/min/1. 73 m2 Comment: Interpretive Data Reference Interval Normal >/= 90 mL/min/1.73m2 Mildly decreased* 60 - 89 mL/min/1.73m2 Mildly to moderately decreased 45 - 59 mL/min/1.73m2 Moderately to severely decreased 30 - 44 mL/min/1.73m2 Severely decreased 15 - 29 mL/min/1.73m2 Kidney Failure < 15 mL/min/1.73m2 *Relative to young adult level Estimated glomerular filtration rate is determined by the 2020 CKD-EPI equation recommended by the National Kidney Foundation (A Unifying Approach to GFR Estimation: Recommendations of the NKF-ASK Task Force on Reassessing the Inclusion of Race in Diagnosing Kidney Disease, JASN 2020). The CKD-EPI equation should not be used for patients with unstable renal function and has not been validated in children and those over 70. Current interpretive data was last reviewed 2020. Blood 09/03/2024 11:0 7 AM CDT 09/03/2024 11:10 AM CDT us Zane King MD LAB BLOOD ORDERABLES Final Result [facility] [address] [facility] Department [place] [address] * (ABNORMAL) Differential, auto (09/03/2024 11:07 AM CDT) Neutrophil abs 3.92 1.50 - 6.50 K/cumm Imm gran abs 0.02 0.00 - 0.10 K/cumm [facility] Lymphocyte abs 1.11 0.80 - 3.30 K/cumm [facility] Monocyte abs 0.86(H) 0.20 - 0.80 K/cumm [facility] Eosinophil abs 0.08 0.00 - 0.50 K/cumm [facility] Basophil abs 0.02 0.00 - 0.10 K/cumm [facility] Neutrophil pct 65.3 % [facility] Comment: Interpretive Data Percent cell count reference ranges are not reported, since discordance with absolute values may lead to misinterpretation of CBC data. Current Interpretive Data was last revised on 2017. Imm gran pct 0.3 % [facility] Comment: Interpretive Data Percent cell count reference ranges are not reported, since discordance with absolute values may lead to misinterpretation of CBC data. Current Interpretive Data was last revised on 2017. Lymphocyte pct 18.5 % [facility] Comment: Interpretive Data Percent cell count reference ranges are not reported, since discordance with absolute values may lead to misinterpretation of CBC data. Current Interpretive Data was last revised on 2017. Monocyte pct 14.3 % [facility] Comment: Interpretive Data Percent cell count reference ranges are not reported, since discordance with absolute values may lead to misinterpretation of CBC data. Current Interpretive Data was last revised on 2017. Eosinophil pct 1.3 % [facility] Comment: Interpretive Data Percent cell count reference ranges are not reported, since discordance with absolute values may lead to misinterpretation of CBC data. Current Interpretive Data was last revised on 2017. Basophil pct 0.3 % [facility] Comment: Interpretive Data Percent cell count reference ranges are not reported, since discordance with absolute values may lead to misinterpretation of CBC data. Current Interpretive Data was last revised on 2017. Blood 09/03/2024 11:0 7 AM CDT 09/03/2024 11:10 AM CDT Zane King MD LAB BLOOD ORDERABLES Final Result Performing Organization Address [facility] Co de Phone Number [address] [place] [address] * Infection Prevention MRSA Only (Staphylococcus aureus) PCR Nasal (09/03/2024 11:07 AM CDT) PCR Scrn, Methicillin resistant Staphylococcus aureus (MRSA) Not Detected Not Detected Comment: Interpretive Data Testing performed using Nucleic Acid Amplification with the [employer] Xpert MRSA NxG Assay. This assay detects target DNA from mecA, mecC and the SCCmec insertion site of Staphylococcus aureus using Real-Time PCR and has been cleared by the FDA. Performance characteristics have been verified by the [facility]. Current Interpretive Data was last revised on 2022 Nasal 09/03/2024 11:0 7 AM CDT 09/03/2024 11:10 AM CDT Zane King MD LAB MICROBIOLOGY - GENERAL ORDERABLES Final Result Performing Organization Address City/[facility] Co de Phone Number [address] [place] [address] * (ABNORMAL) CBC with auto differential (09/03/2024 11:07 AM CDT) Pathologist [facility] WBC 6.01 3.80 - 9.90 K/cumm Hgb 13.8 13.0 - 17.5 g/dL [facility] Hct 40.6 38.9 - 50.3 % [facility] Plt 180 150 - 400 K/cumm [facility] MPV 8.9(L) 9.1 - 12.3 fL [facility] RBC 4.58 4.30 - 5.80 M/cumm [facility] MCV 88.6 81.3 - 96.4 fL [facility] MCH 30.1 27.1 - 33.3 pg [facility] MCHC 34.0 32.3 - 35.7 g/dL [facility] RDW CV 12.9 11.1 - 14.9 % [facility] RDW SD 41.7 35.7 - 48.1 fL [facility] NRBC abs 0.00 0.00 - 0.01 K/cumm [facility] Blood 09/03/2024 11:0 7 AM CDT 09/03/2024 11:10 AM CDT Zane King MD LAB BLOOD ORDERABLES Final Result Performing Organization Address [facility] de Phone Number [address] [place] [address] * ABO/Rh (09/03/2024 11:07 AM CDT) Pathologist [facility] ABO/Rh O Negative Blood 09/03/2024 11:0 7 AM CDT 09/03/2024 11:10 AM CDT Narrative [facility] - 09/03/2024 11:49 AM CDT Is this test being ordered in advance for a procedure?->Yes Expected date of procedure:->09/17/24 Has the patient been transfused in the past 3 months?->No Zane King MD LAB BLOOD BANK TEST ORDERA BLES Final Result Performing Organization Address City/[facility] Co de Phone Number [address] [place] [address] * Antibody screen (09/03/2024 11:07 AM CDT) [facility] Jacque, indirect, Gel Interpretation Negative ABSC Blood 09/03/2024 11:0 7 AM CDT 09/03/2024 11:10 AM CDT Narrative [facility] - 09/03/2024 11:49 AM CDT Is this test being ordered in advance for a procedure?->Yes Expected date of procedure:->09/17/24 Has the patient been transfused in the past 3 months?->No Zane King MD LAB BLOOD BANK TEST ORDERA BLES Final Result Performing Organization Address [facility] Co de Phone Number [place] [address] [place] [address] * (ABNORMAL) Hemoglobin A1c (09/03/2024 11:07 AM CDT) [facility] Hgb A1C 6.2(H) 4.0 - 5.6 % Estimated Average Glucose 131 mg/dL [facility] Comment: The ADA recommends reporting an estimated Average Glucose (eAG) with all Hemoglobin A1c results using the equation derived from a study of 507 normal and diabetic adults. Minority populations were underrepresented and children were not included. (Diabetes Care 31:9616-2333, 2008). The eAG is not equivalent to a fasting glucose. Blood 09/03/2024 11:0 7 AM CDT 09/03/2024 11:10 AM CDT Zane King MD LAB BLOOD ORDERABLES Final Result Performing Organization Address City/[facility]/ZIP Co de Phone Number [place] [address] [place] [address] * (ABNORMAL) Comprehensive metabolic panel (09/03/2024 11:07 AM CDT) [facility] Sodium 130(L) 135 - 145 mmol/L Potassium, pl 4.5 3.3 - 4.9 mmol/L [facility] Chloride 96(L) 97 - 110 mmol/L [facility] CO2 26 22 - 32 mmol/L [facility] Anion gap 8 2 - 15 mmol/L [facility] BUN 19 6 - 25 mg/dL [facility] Creatinine 0.75(L) 0.80 - 1.30 mg/dL [facility] Glucose 134 70 - 199 mg/dL [facility] Comment: Interpretive Data Fasting glucose >/= 126 mg/dl is diagnostic for diabetes. Fasting is defined as no caloric intake for at least 8 hours. Fasting glucose between 100 mg/dl to 125 mg/dl is diagnostic of prediabetes. In a patient with classic symptoms of hyperglycemia or hyperglycemic crisis, a random glucose >/= 200 mg/dl is diagnostic for diabetes. In the absence of unequivocal hyperglycemia, results should be confirmed by repeat testing. The classification and Diagnosis of Diabetes Diabetes Care 2021; 46: S19-S40. Current interpretive data was last revised 2022. Calcium 9.7 8.5 - 10.3 mg/dL [facility] Bilirubin, total 0.5 0.1 - 1.2 mg/dL [facility] Protein, pl 6.9 6.5 - 8.5 g/dL [facility] Albumin 4.2 3.5 - 5.0 g/dL [facility] Alk phos 68 40 - 130 Units/L [facility] ALT 21 7 - 55 Units/L [facility] AST 26 10 - 50 Units/L [facility] Blood 09/03/2024 11:0 7 AM CDT 09/03/2024 11:10 AM CDT Zane King MD LAB BLOOD ORDERABLES Final Result [facility] [address] [facility] Department [place] [address] * X-ray chest 2 views (07/26/2024 3:39 PM CDT) Anatomical Region Laterality Modality Body, Chest N/A Computed Radiogr aphy 07/26/2024 9:42 PM CDT Narrative 07/26/2024 9:43 PM CDT EXAM DESCRIPTION: XR CHEST PA LATERAL 2 VIEWS REASON FOR STUDY: Pneumonia, has pneumonia cleared scheduled 08/08/24 ATC Pt states he has surgery scheduled for 08/08/24. TECHNIQUE: Frontal and lateral radiographic view(s) of the chest. COMPARISON: 07/16/2024 FINDINGS: LUNGS: There are subtle patchy opacities in the right lung base remaining. No sizable pleural effusion or pneumothorax. HEART/MEDIASTINUM: Cardiac silhouette normal in size. Mediastinal and hilar contours appear normal. LINES/TUBES: None. BONES: No acute osseous abnormality. IMPRESSION: Improving patchy opacities in the right lung base may represent improving pneumonia. THIS IS AN ELECTRONICALLY VERIFIED FINAL REPORT 07/26/2024 9:43 PM - Electronically signed by Kirill Agudelo M.D. AM T: Report ID: [id number] Reading Location: [place] [address] Procedure Note Kirill Agudelo MD - 07/26/2024 EXAM DESCRIPTION: XR CHEST PA LATERAL 2 VIEWS REASON FOR STUDY: Pneumonia, has pneumonia cleared scheduled 08/08/24 ATC Pt states he has surgery scheduled for 08/08/24. TECHNIQUE: Frontal and lateral radiographic view(s) of the chest. COMPARISON: 07/16/2024 FINDINGS: LUNGS: There are subtle patchy opacities in the right lung base remaining. No sizable pleural effusion or pneumothorax. HEART/MEDIASTINUM: Cardiac silhouette normal in size. Mediastinal andhilar contours appear normal. LINES/TUBES: None. BONES: No acute osseous abnormality. IMPRESSION: Improving patchy opacities in the right lung base mayrepresent improving pneumonia. THIS IS AN ELECTRONICALLY VERIFIED FINAL REPORT 07/26/2024 9:43 PM - Electronically signed by Kirill Agudelo M.D. AM T: Report ID: [id number] Reading Location: [place] [address] us Tata Dhaliwal NP IMG XR PROCEDURES Fi nal Result * eGFR (07/26/2024 2:19 PM CDT) eGFR 88 >=60 mL/min/1. 73 m2 Comment: Interpretive Data Reference Interval Normal >/= 90 mL/min/1.73m2 Mildly decreased* 60 - 89 mL/min/1.73m2 Mildly to moderately decreased 45 - 59 mL/min/1.73m2 Moderately to severely decreased 30 - 44 mL/min/1.73m2 Severely decreased 15 - 29 mL/min/1.73m2 Kidney Failure < 15 mL/min/1.73m2 *Relative to young adult level Estimated glomerular filtration rate is determined by the 2020 CKD-EPI equation recommended by the National Kidney Foundation (A Unifying Approach to GFR Estimation: Recommendations of the NKF-ASK Task Force on Reassessing the Inclusion of Race in Diagnosing Kidney Disease, JASN 202). The CKD-EPI equation should not be used for patients with unstable renal function and has not been validated in children and those over 70. Current interpretive data was last reviewed 2020. Blood 07/26/2024 2:19 PM CDT 07/26/2024 2:23 PM CDT Zane King MD LAB BLOOD ORDERABLES Final Result [place] [address] [facility] Department [place] [address] * Differential, auto (07/26/2024 2:19 PM CDT) Pathologist [facility] Neutrophil abs 3.07 1.50 - 6.50 K/cumm Imm gran abs 0.01 0.00 - 0.10 K/cumm [facility] Lymphocyte abs 1.11 0.80 - 3.30 K/cumm [facility] Monocyte abs 0.64 0.20 - 0.80 K/cumm [facility] Eosinophil abs 0.10 0.00 - 0.50 K/cumm [facility] Basophil abs 0.03 0.00 - 0.10 K/cumm [facility] Neutrophil pct 61.9 % [facility] Comment: Interpretive Data Percent cell count reference ranges are not reported, since discordance with absolute values may lead to misinterpretation of CBC data. Current Interpretive Data was last revised on 2017. Imm gran pct 0.2 % [facility] Comment: Interpretive Data Percent cell count reference ranges are not reported, since discordance with absolute values may lead to misinterpretation of CBC data. Current Interpretive Data was last revised on 2017. Lymphocyte pct 22.4 % [facility] Comment: Interpretive Data Percent cell count reference ranges are not reported, since discordance with absolute values may lead to misinterpretation of CBC data. Current Interpretive Data was last revised on 2017. Monocyte pct 12.9 % [facility] Comment: Interpretive Data Percent cell count reference ranges are not reported, since discordance with absolute values may lead to misinterpretation of CBC data. Current Interpretive Data was last revised on 2017. Eosinophil pct 2.0 % [facility] Comment: Interpretive Data Percent cell count reference ranges are not reported, since discordance with absolute values may lead to misinterpretation of CBC data. Current Interpretive Data was last revised on 2017. Basophil pct 0.6 % [facility] Comment: Interpretive Data Percent cell count reference ranges are not reported, since discordance with absolute values may lead to misinterpretation of CBC data. Current Interpretive Data was last revised on 2017. Blood 07/26/2024 2:19 PM CDT 07/26/2024 2:23 PM CDT Zane King MD LAB BLOOD ORDERABLES Final Result DARLENE [address] [facility] Department [place] [address] * Infection Prevention MRSA Only (Staphylococcus aureus) PCR Nasal (07/26/2024 2:19 PM CDT) PCR Scrn, Methicillin resistant Staphylococcus aureus (MRSA) Not Detected Not Detected Comment: Interpretive Data Testing performed using Nucleic Acid Amplification with the [employer] Xpert MRSA NxG Assay. This assay detects target DNA from mecA, mecC and the SCCmec insertion site of Staphylococcus aureus using Real-Time PCR and has been cleared by the FDA. Performance characteristics have been verified by the [facility]. Current Interpretive Data was last revised on 2022 Nasal 07/26/2024 2:19 PM CDT 07/26/2024 2:22 PM CDT Zane King MD LAB MICROBIOLOGY - GENERAL ORDERABLES Final Result Performing Organization Address City/[facility] Co de Phone Number DARLENE [address] [facility] [place] [address] * (ABNORMAL) CBC with auto differential (07/26/2024 2:19 PM CDT) Pathologist [facility] WBC 4.96 3.80 - 9.90 K/cumm Hgb 14.8 13.0 - 17.5 g/dL [facility] Hct 43.5 38.9 - 50.3 % [facility] Plt 212 150 - 400 K/cumm [facility] MPV 8.7(L) 9.1 - 12.3 fL [facility] RBC 4.95 4.30 - 5.80 M/cumm [facility] MCV 87.9 81.3 - 96.4 fL [facility] MCH 29.9 27.1 - 33.3 pg [facility] MCHC 34.0 32.3 - 35.7 g/dL [facility] RDW CV 13.0 11.1 - 14.9 % [facility] RDW SD 41.7 35.7 - 48.1 fL [facility] NRBC abs 0.00 0.00 - 0.01 K/cumm [facility] Blood 07/26/2024 2:19 PM CDT 07/26/2024 2:23 PM CDT Zane King MD LAB BLOOD ORDERABLES Final Result [facility] [address] [place] [address] [place] [address] * ABO/Rh (07/26/2024 2:19 PM CDT) Pathologist [facility] ABO/Rh O Negative Blood 07/26/2024 2:19 PM CDT 07/26/2024 2:23 PM CDT Narrative [facility] - 07/26/2024 3:00 PM CDT Is this test being ordered in advance for a procedure?->Yes Expected date of procedure:->08/08/24 Has the patient been transfused in the past 3 months?->No Zane King MD LAB BLOOD BANK TEST ORDERA BLES Final Result Performing Organization Address [facility] de Phone Number [address] [address] * Antibody screen (07/26/2024 2:19 PM CDT) [facility] Jacque, indirect, Gel Interpretation Negative ABSC Blood 07/26/2024 2:19 PM CDT 07/26/2024 2:23 PM CDT Narrative [facility] - 07/26/2024 3:00 PM CDT Is this test being ordered in advance for a procedure?->Yes Expected date of procedure:->08/08/24 Has the patient been transfused in the past 3 months?->No Zane King MD LAB BLOOD BANK TEST ORDERA BLES Final Result Performing Organization Address [facility] Phone Number [address] [address] * (ABNORMAL) Comprehensive metabolic panel (07/26/2024 2:19 PM CDT) [facility] Sodium 129(L) 135 - 145 mmol/L Potassium, pl 5.2(H) 3.3 - 4.9 mmol/L [facility] Comment:Hemolyzed; Potassium value may be falsely elevated by as much as 1.0 mmol/L. Suggest redraw and reanalysis. Chloride 94(L) 97 - 110 mmol/L [facility] CO2 26 22 - 32 mmol/L [facility] Anion gap 9 2 - 15 mmol/L [facility] BUN 23 6 - 25 mg/dL [facility] Creatinine 0.80 0.80 - 1.30 mg/dL [facility] Glucose 119 70 - 199 mg/dL [facility] Comment: Interpretive Data Fasting glucose >/= 126 mg/dl is diagnostic for diabetes. Fasting is defined as no caloric intake for at least 8 hours. Fasting glucose between 100 mg/dl to 125 mg/dl is diagnostic of prediabetes. In a patient with classic symptoms of hyperglycemia or hyperglycemic crisis, a random glucose >/= 200 mg/dl is diagnostic for diabetes. In the absence of unequivocal hyperglycemia, results should be confirmed by repeat testing. The classification and Diagnosis of Diabetes Diabetes Care 2021; 46: S19-S40. Current interpretive data was last revised 2022. Calcium 10.0 8.5 - 10.3 mg/dL [facility] Bilirubin, total 0.7 0.1 - 1.2 mg/dL [facility] Protein, pl 7.9 6.5 - 8.5 g/dL [facility] Albumin 4.6 3.5 - 5.0 g/dL [facility] Alk phos 68 40 - 130 Units/L [facility] ALT 27 7 - 55 Units/L [facility] AST 33 10 - 50 Units/L [facility] Comment:Hemolyzed; result ma y be falsely elevated Blood 07/26/2024 2:19 PM CDT 07/26/2024 2:23 PM CDT Zane King MD LAB BLOOD ORDERABLES Final Result Performing Organization Address City/State/[facility] Co de Phone Number DARLENE [address] [facility] Department [place] [address] * XR Chest Pa Lateral 2 Views (07/16/2024 2:32 PM CDT) Anatomical Region Laterality Modality Body, Chest N/A Computed Radiogr aphy 07/17/2024 5:44 PM CDT Narrative 07/17/2024 5:45 PM CDT EXAM DESCRIPTION: XR CHEST PA LATERAL 2 VIEWS REASON FOR STUDY: cough Cough for a few weeks TECHNIQUE: Frontal and lateral radiographic views of the chest were acquired. COMPARISON: 10/17/2023 FINDINGS: LUNGS/PLEURA: Mild patchy infiltrate in the right lung base. HEART/MEDIASTINUM: The heart size is normal. Normal mediastinal and hilar contours. LINES/TUBES: None. BONES: No acute findings. OTHER: No other significant finding. IMPRESSION: Mild patchy infiltrate in the right lung base. THIS IS AN ELECTRONICALLY VERIFIED FINAL REPORT 07/17/2024 5:45 PM - Electronically signed by Omar Salmeron M.D. RW: RENITA Report ID: [id number] Reading Location: [id number] Procedure Note Omar Salmeron MD - 07/17/2024 EXAM DESCRIPTION: XR CHEST PA LATERAL 2 VIEWS REASON FOR STUDY: cough Cough for a few weeks TECHNIQUE: Frontal and lateral radiographic views of the chest wereacquired. COMPARISON: 10/17/2023 FINDINGS: LUNGS/PLEURA: Mild patchy infiltrate in the right lung base. HEART/MEDIASTINUM: The heart size is normal. Normal mediastinal and hilar contours. LINES/TUBES: None. BONES: No acute findings. OTHER: No other significant finding. IMPRESSION: Mild patchy infiltrate in the right lung base. THIS IS AN ELECTRONICALLY VERIFIED FINAL REPORT 07/17/2024 5:45 PM - Electronically signed by Omar Salmeron M.D. RW: RENITA Report ID: [id number] Reading Location: [id number] us [employer] IMG XR PROCEDURES Final Resu lt * (ABNORMAL) Urinalysis reflex to microscopic and culture Urine, clean voided (07/03/2024 7:38 AM CDT) Color, ur Yellow Yellow Comment:Testing performed by : [address] [address] Clarity, ur Clear Clear DARLENE Comment:Testing performed by : [address] [address] Specific gravity, ur 1.015 1.003 - 1.030 DARLENE VELAZCO Comment:Testing performed by : [address] [address] pH, urine 6.0 DARLENE VELAZCO Comment: Interpretive Data U rine pH is affected by diet, medications, systemic acid-base disturbances, and renal tubular function. pH may affect urinary stone formation. For example, urine pH below 6.0 may help reduce the tendency for calcium phosphate stones and pH greater than 6.0 may reduce the tendency for uric acid stone formation. Source: [facility] trippiece Current Interpretive Data was last revised on 2017 Testing performed by: [facility], [address] [place] [address], [place]., [address] Protein, ur ql Negative Negative DARLENE Comment:Testing performed by : [facility], [address] [place] [address], [place]., [address] Glucose, ur ql Negative Negative DARLENE Comment:Testing performed by : [address], [place]., [address] Ketones, ur Negative Negative DARLENE Comment:Testing performed by : [address], [place]., [address] Bilirubin, ur Negative Negative DARLENE Comment:Testing performed by : [address], [place]., [address] Blood, ur 2+(A) Negative DARLENE Comment:Testing performed by : [address], [place]., [address] Urobilinogen, ur <2.0 <2.0 mg/dL [facility]E Comment:Testing performed by : [address], [place]., [address] Nitrite, ur Negative Negative DARLENE Comment:Testing performed by : [address] [address] Leukocyte esterase, ur 2+(A) Negative DARLENE Comment:Testing performed by : [address], [place]., [address] UA reflex comment Reflex to microscopic UA will be performed. DRALENE Comment:Testing performed by : [address], [place]., [address] Urine, clean voided 07/03/2024 7:38 AM CDT 07/03/2024 9:38 AM CDT Narrative CERNER - 07/03/2024 9:45 AM CDT Urine Collection Method->Clean Catch us Nohemi C. Hatfield MD LAB MICROBIOLOGY - GENERAL O RDERABLES Final Result DARLENE [facility] [employer] [place] [address] * Albumin Creatinine Ratio, Urine (07/03/2024 7:38 AM CDT) Albumin Ur 16.8 mg/L Comment: Interpretive Data No reference range established. Current interpretive data was last revised 2018. Testing performed by: [address] [address] Creatinine Ur 112.0 mg/dL [facility]E Comment: Interpretive Data No reference range established. Current interpretive data was last revised 2018. Testing performed by: [address] [address] Albumin Creatinine Ratio, Ur 15 1 - 29 mg/g DAR[facility]E Comment:Testing performed by : [address] [address] Urine 07/03/2024 7:38 AM CDT 07/03/2024 9:38 AM CDT Nohemi Hatfield MD LAB URINE ORDERABLES Final R esult Performing Organization Address City/[facility] Co de Phone Number DARLENE [facility]0 [facility] [place] [address] * (ABNORMAL) Urinalysis, microscopic only (07/03/2024 7:38 AM CDT) WBC, ur 6-10(A) 0 - 5 /HPF Comment:Testing performed by : [address] [address] RBC, ur 11-20(A) 0 - 2 /HPF DARLENE VELAZCO Comment:Testing performed by : [address] [address] Mucous, ur Present(A) DARLENE Comment:Testing performed by : [address] [address] Culture Reflex Comment Reflex conditions for urine culture (WBC >10) not met. DARLENE Comment:Testing performed by : [address] [address] Urine, clean voided 07/03/2024 7:38 AM CDT 07/03/2024 9:38 AM CDT Nohemi Hatfield MD LAB URINE ORDERABLES Final R esult Performing Organization Address City/[facility] Co de Phone Number DARLENE [address] [place] [address] * (ABNORMAL) Hemoglobin A1c (07/03/2024 7:34 AM CDT) Pathologist [facility] Hgb A1C 6.2(H) 4.0 - 5.6 % Comment:Testing performed by : [address] [address] Estimated Average Glucose 131 mg/dL DARLENE Comment: The ADA recommends reporting an estimated Average Glucose (eAG) with all Hemoglobin A1c results using the equation derived from a study of 507 normal and diabetic adults. Minority populations were underrepresented and children were not included. (Diabetes Care 31:8333-4348, 2008). The eAG is not equivalent to a fasting glucose. Testing performed by: [address] [address] Blood 07/03/2024 7:34 AM CDT 07/03/2024 9:35 AM CDT Nohemi Hatfield MD LAB BLOOD ORDERABLES Final R esult Performing Organization Address City/[facility] Co de Phone Number [address] [place] [address] * eGFR (07/03/2024 7:30 AM CDT) Pathologist [facility] eGFR >90 >=60 mL/min/1. 73 m2 Comment: Interpretive Data Reference Interval Normal >/= 90 mL/min/1.73m2 Mildly decreased* 60 - 89 mL/min/1.73m2 Mildly to moderately decreased 45 - 59 mL/min/1.73m2 Moderately to severely decreased 30 - 44 mL/min/1.73m2 Severely decreased 15 - 29 mL/min/1.73m2 Kidney Failure < 15 mL/min/1.73m2 *Relative to young adult level Estimated glomerular filtration rate is determined by the 2020 CKD-EPI equation recommended by the National Kidney Foundation (A Unifying Approach to GFR Estimation: Recommendations of the NKF-ASK Task Force on Reassessing the Inclusion of Race in Diagnosing Kidney Disease, JASN 2020). The CKD-EPI equation should not be used for patients with unstable renal function and has not been validated in children and those over 70. Current interpretive data was last reviewed 2020. Testing performed by: [address] [address] Blood 07/03/2024 7:30 AM CDT 07/03/2024 9:38 AM CDT Suresh Ascencio MD LAB BLOOD ORDERABLES Final Result [facility] Department of Laboratories [place], [place] [id number] * (ABNORMAL) Differential, auto (07/03/2024 7:30 AM CDT) Neutrophil abs 2.63 1.50 - 6.50 K/cumm Comment:Testing performed by : [address] [address] Imm gran abs 0.03 0.00 - 0.10 K/cumm DARLENE Comment:Testing performed by : [address] [address] Lymphocyte abs 0.77(L) 0.80 - 3.30 K/cumm DARLENE Comment:Testing performed by : [address] [address] Monocyte abs 0.80 0.20 - 0.80 K/cumm DARLENE Comment:Testing performed by : [address] [address] Eosinophil abs 0.08 0.00 - 0.50 K/cumm DARLENE Comment:Testing performed by : [address] [address] Basophil abs 0.01 0.00 - 0.10 K/cumm DARLENE Comment:Testing performed by : [address] [address] Neutrophil pct 60.9 % [facility] Comment: Interpretive Data Percent cell count reference ranges are not reported, since discordance with absolute values may lead to misinterpretation of CBC data. Current Interpretive Data was last revised on 2017. Testing performed by: [address] [address] Imm gran pct 0.7 % [facility] Comment: Interpretive Data Percent cell count reference ranges are not reported, since discordance with absolute values may lead to misinterpretation of CBC data. Current Interpretive Data was last revised on 2017. Testing performed by: [address] [address] Lymphocyte pct 17.8 % [facility] Comment: Interpretive Data Percent cell count reference ranges are not reported, since discordance with absolute values may lead to misinterpretation of CBC data. Current Interpretive Data was last revised on 2017. Testing performed by: [address] [address] Monocyte pct 18.5 % [facility] Comment: Interpretive Data Percent cell count reference ranges are not reported, since discordance with absolute values may lead to misinterpretation of CBC data. Current Interpretive Data was last revised on 2017. Testing performed by: [address] [address] Eosinophil pct 1.9 % [facility] Comment: Interpretive Data Percent cell count reference ranges are not reported, since discordance with absolute values may lead to misinterpretation of CBC data. Current Interpretive Data was last revised on 2017. Testing performed by: [address] [address] Basophil pct 0.2 % [facility] Comment: Interpretive Data Percent cell count reference ranges are not reported, since discordance with absolute values may lead to misinterpretation of CBC data. Current Interpretive Data was last revised on 2017. Testing performed by: [address] [address] Blood 07/03/2024 7:30 AM CDT 07/03/2024 9:35 AM CDT Suresh Ascencio MD LAB BLOOD ORDERABLES Final Result Performing Organization Address City/[facility] Co de Phone Number [address] [place] [address] * Thyroid Function [place] (07/03/2024 7:30 AM CDT) TSH 2.98 0.30 - 4.20 mcIUnit/mL Comment:Testing performed by : [address] [address] Blood 07/03/2024 7:30 AM CDT 07/03/2024 9:38 AM CDT Suresh Ascencio MD LAB BLOOD ORDERABLES Final Result Performing Organization Address [facility] de Phone Number [address] [address] * CBC with auto differential (07/03/2024 7:30 AM CDT) WBC 4.32 3.80 - 9.90 K/cumm Comment:Testing performed by : [address] [address] Hgb 14.1 13.0 - 17.5 g/dL DARLENE VELAZCO Comment:Testing performed by : [address] [address] Hct 42.1 38.9 - 50.3 % DARLENE VELAZCO Comment:Testing performed by : [address] [address] Plt 200 150 - 400 K/cumm DARLENE VELAZCO Comment:Testing performed by : [address] [address] MPV 9.4 9.1 - 12.3 fL DARLENE VELAZCO Comment:Testing performed by : [address] [address] RBC 4.80 4.30 - 5.80 M/cumm DARLENE VELAZCO Comment:Testing performed by : [address] [address] MCV 87.7 81.3 - 96.4 fL DARLENE Comment:Testing performed by : [address] [address] MCH 29.4 27.1 - 33.3 pg DARLENE Comment:Testing performed by : [address] [address] MCHC 33.5 32.3 - 35.7 g/dL DARLENE Comment:Testing performed by : [address] [address] RDW CV 13.0 11.1 - 14.9 % DARLENE Comment:Testing performed by : [address], [address] RDW SD 41.2 35.7 - 48.1 fL DARLENE Comment:Testing performed by : [address] [address] NRBC abs 0.00 0.00 - 0.01 K/cumm DARLENE Comment:Testing performed by : [address] [address] Blood 07/03/2024 7:30 AM CDT 07/03/2024 9:35 AM CDT us Suresh Ascencio MD LAB BLOOD ORDERABLES Final Result [facility] [address] [facility] Department [place] [address] * Magnesium (07/03/2024 7:30 AM CDT) [facility] Magnesium 2.1 1.4 - 2.5 mg/dL Comment:Testing performed by : [address] [address] Blood 07/03/2024 7:30 AM CDT 07/03/2024 9:38 AM CDT Suresh Ascencio MD LAB BLOOD ORDERABLES Final Result DARLENE VELAZCO [address] [facility] Department [place] [address] * (ABNORMAL) Lipid panel (07/03/2024 7:30 AM CDT) Cholesterol 116 30 - 199 mg/dL Comment: Interpretive Data Ages < or = 19 years Acceptable: <170 mg/dL Borderline high: 170-199 mg/dL High: >or= 200 mg/dL Ages > or = 20 years Desirable: <200 mg/dL Borderline high: 200-239 mg/dL High: >or= 240 mg/dL Literature References: 1. Expert Panel on Integrated Guidelines for Cardiovascular Health and Risk Reduction in Children and Adolescents. Pediatrics 2011;128:S213 2. NCEP Expert Panel. Circulation 2004;110:227 Current Interpretive Data was last revised on 2017. Testing performed by: [address] [address] Triglycerides 146 <=149 mg/dL DARLENE Comment: Interpretive Data Ages < or = 9 years Acceptable: <75 mg/dL Borderline high: 75-99 mg/dL High: >or= 100 mg/dL Ages 10 to 20 years Acceptable: <90 mg/dL Borderline high: 90-129 mg/dL High: >or= 130 mg/dL Ages > or = 20 years Desirable: <150 mg/dL Borderline high: 150-199 mg/dL High: 200-499 mg/dL Very high: >or= 499 mg/dL Literature References: 1. Expert Panel on Integrated Guidelines for Cardiovascular Health and Risk Reduction in Children and Adolescents. Pediatrics 2011;128:S213 2. NCEP Expert Panel. Circulation 2004;110:227 Current Interpretive Data was last revised on 2017. Testing performed by: [facility], [address] [place] [address]., [address] HDL 39(L) >=40 mg/dL DARLENE Comment: Interpretive Data Ages < or = 19 years Acceptable: >45 mg/dL Borderline low: 40-45 mg/dL Low: <40 mg/dL Ages > or = 20 years Desirable: >or= 60 mg/dL Low: <40 mg/dL Literature References: 1. Expert Panel on Integrated Guidelines for Cardiovascular Health and Risk Reduction in Children and Adolescents. Pediatrics 2011;128:S213 2. NCEP Expert Panel. Circulation 2004;110:227 Current Interpretive Data was last revised on 2017. Testing performed by: [address] [address] LDL, calculated 52 <=129 mg/dL DARLENE Comment: Interpretive Data Ages < or = 19 years Acceptable: <110 mg/dL Borderline high: 110-129 mg/dL High: >or= 130 mg/dL Ages > or = 20 years Optimal: <100 mg/dL Near optimal: 100-129 mg/dL Borderline high: 130-159 mg/dL High: >160 mg/dL Calculated using the Phil LDL-C estimating equation. This equation was implemented on 2023. Prior to this date LDL-C was estimated using the Friedewald equation. Literature References: 1. Expert Panel on Integrated Guidelines for Cardiovascular Health and Risk Reduction in Children and Adolescents. Pediatrics 2011;128:S213 2. NCEP Expert Panel. Circulation 2004;110:227 3. Phil Boyd et al. TERRI Cardiol. 2020 June 14;5(5):540-548. doi: 10.1001/jamacardio.2020.0013 Current Interpretive Data was last revised on 2023. Testing performed by: [address] [address] Non-HDL Cholesterol 77 mg/dL DARLENE Comment: Interpretive Data Ages < or = 19 years Acceptable: <120 mg/dL Borderline high: 120-144 mg/dL High: >145 mg/dL Ages > or = 20 years When triglycerides are >200 mg/dL, Non-HDL cholesterol is a secondary target of therapy with treatment goals that are 30 mg/dL greater than the LDL cholesterol target. Literature References: 1. Expert Panel on Integrated Guidelines for Cardiovascular Health and Risk Reduction in Children and Adolescents. Pediatrics 2011;128:S213 2. NCEP Expert Panel. Circulation 2004;110:227 Current Interpretive Data was last revised on 2017. Testing performed by: [address] [address] Chol/HDL ratio 3 DARLENE Comment:Testing performed by : [address] [address] Blood 07/03/2024 7:30 AM CDT 07/03/2024 9:38 AM CDT Suresh Ascencio MD LAB BLOOD ORDERABLES Final Result DARLENE [address] [facility] Department [place] [address] * (ABNORMAL) Comprehensive metabolic panel (07/03/2024 7:30 AM CDT) Sodium 131(L) 135 - 145 mmol/L Comment:Testing performed by : [address] [address] Potassium, pl 4.7 3.3 - 4.9 mmol/L DARLENE Comment:Testing performed by : [address] [address] Chloride 94(L) 97 - 110 mmol/L DARLENE Comment:Testing performed by : [address] [address] CO2 27 22 - 32 mmol/L DARLENE Comment:Testing performed by : [address] [address] Anion gap 10 2 - 15 mmol/L DARLENE Comment:Testing performed by : [address] [address] BUN 11 6 - 25 mg/dL DARLENE Comment:Testing performed by : [address] [address] Creatinine 0.70(L) 0.80 - 1.30 mg/dL DARLENE Comment:Testing performed by : [address] [address] Glucose 116 70 - 199 mg/dL DARLENE Comment: Interpretive Data Fasting glucose >/= 126 mg/dl is diagnostic for diabetes. Fasting is defined as no caloric intake for at least 8 hours. Fasting glucose between 100 mg/dl to 125 mg/dl is diagnostic of prediabetes. In a patient with classic symptoms of hyperglycemia or hyperglycemic crisis, a random glucose >/= 200 mg/dl is diagnostic for diabetes. In the absence of unequivocal hyperglycemia, results should be confirmed by repeat testing. The classification and Diagnosis of Diabetes Diabetes Care 2021; 46: S19-S40. Current interpretive data was last revised 2022. Testing performed by: [address] [address] Calcium 9.7 8.5 - 10.3 mg/dL DARLENE Comment:Testing performed by : [address] [address] Bilirubin, total 0.7 0.1 - 1.2 mg/dL DARLENE Comment:Testing performed by : [address] [address] Protein, pl 7.4 6.5 - 8.5 g/dL DARLENE Comment:Testing performed by : [address] [address] Albumin 4.5 3.5 - 5.0 g/dL DARLENE Comment:Testing performed by : [address] [address] Alk phos 61 40 - 130 Units/L DARLENE Comment:Testing performed by : [address] [address] ALT 18 7 - 55 Units/L DARLENE Comment:Testing performed by : [address] [address] AST 24 10 - 50 Units/L DARLENE Comment:Testing performed by : [address] [address] Blood 07/03/2024 7:30 AM CDT 07/03/2024 9:38 AM CDT us Suresh Ascencio MD LAB BLOOD ORDERABLES Final Result DARLENE [address] [facility] Department of Laboratories [place], [place] [id number] from Last 3 Months Additional Health Concerns Active Problems Noted Date Diagnosed Date 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 Insurance MEDICARE [employer] FOR LIFE MEDICARE FOR LIFE MEDICARE FOR LIFE Advance Directives For more information, please contact: [phone] Documents on File Type Date Recorded Patient City [employer] Expl anation ADVANCE DIRECTIVE 12/01/2015 12:00 AM [facility] FINANCIAL/MEDICAL * Full Code (Latest Code Status on File) Date Activated Date Inactivated Comments 09/17/2024 3:48 PM 09/19/2024 5:53 PM Care Teams Planning Specialist Relationship Specialty Start Date End Date Nohemi Hatfield MD [address] [place] [id number] PCP - General Internal Medicine 04/30/19 Zane King MD [address] [facility] [address] [address] Consulting Physician Orthopedic Surgery 10/25/18 Prashanth Back OD [facility] [place] [address] Internal Medicine 11/08/19 Suresh Ascencio MD [facility] [place] [address] Consulting Physician Cardiology 12/13/22 Prashanth Gutierrez MD [facility] [place] [address] Consulting Physician Urology 06/15/23
--- OUTSIDE RECORDS SUMMARY | 2024-09-25 14:43 | XMS_ITS | Encounter Summary ---
Author Organization [facility] Facility Care Team Providers Care Consulting Analyst Name Role Phone Nohemi Hatfield MD Primary Care Provider + [phone] Zane King MD Unavailable + [phone] Jaron Owens MD Unavailable [phone] Franko Davis MD Unavailable [phone] Francia Champagne LPN Unavailable +[phone] Mateusz Olivas Primary Care Provide r Nohemi Hatfield MD Primary Care Provider + [phone] Prashanth Back OD Unavailable [phone] Francia Champagne LPN Unavailable +[phone] Ciaran Lara MD Unavailable [phone] Suresh Ascencio MD Unavailable +[phone] Prashanth Gutierrez MD Unavailable Encounter Details Date Type Department Care Team (Latest Contact Info) Description 06/25/2014 Orders Only [facility] CLINCON[facility] ProviderRon MD [address] [place] [phone] Social History Tobacco Use Types Packs/Day [...] Date/Time Associated Diagnosis Comments PROCEDURE - RESULT 05/21/2016 12 :00 AM CDT documented in this encounter Results * PROCEDURE - RESULT (05/21/2016 12:00 AM CDT) Narrative 05/21/2016 12:00 AM CDT Ordered by an unspecified provider. us Historical Provider Final Res ult documented in this encounter Visit Diagnoses Not on filedocumented in this encounter Care Teams Consulting Analyst Relationship Specialty Start Date End Date Nohemi Hatfield MD [address] [place] [address] PCP - General 04/19/18 02/26/19 Mateusz Olivas PA [address] [place] [address] [address] CAMACHO [address] [place] [address] PCP - General 02/27/19 04/29/19 Nohemi Hatfield MD [address] [place] [address] PCP - General Internal Medicine 04/30/19 Zane King MD [address] [place] [address] DR CAMACHO [address] [place] [address] Consulting Physician Orthopedic Surgery 10/25/18 Jaron Owens MD [address] [place] [address] DR CAMACHO [address] [place] [address] Consulting Physician Orthopedic Surgery 10/25/1812/12 Franko Davis MD [address] [place] [address] [address] CAMACHO [address] [address] Waste Water Or Water Plant Operator Cardiovascular Disease 11/15/18 Francia Champagne LPN [address] [facility] [address] CAMACHO [address] [address] Industrial Maintenance Repairer Helper 11/20/18 11/20/18 Prashanth Back [facility] [place] [address] Internal Medicine 11/08/19 Francia Champagne LPN [address] [facility] [address] CAMACH[address] [address] Industrial Maintenance Repairer Helper 06/03/20 06/03/20 Ciaran Lara MD [facility] [place] [address] Consulting Physician Ophthalmology 11/18/20 12/12/22 Suresh Ascencio MD [facility] [address] [place] [address] Consulting Physician Cardiology 12/13/22 Prashanth Gutierrez MD [facility] [address] [place] [address] Consulting Physician Urology 06/15/23 documented as of this encounter
--- OUTSIDE RECORDS SUMMARY | 2024-09-25 14:43 | XMS_ITS | Encounter Summary ---
Author Organization [facility] Facility Care Team Providers Care Electronic Organ Technician Name Role Phone Nohemi Hatfield MD Primary Care Provider + [phone] Zane King MD Unavailable + [phone] Jaron Owens MD Unavailable +[phone] Franko Davis MD Unavailable +[phone] Francia Champagne LPN Unavailable +[phone] Mateusz Olivas Primary Care Provide r Nohemi Hatfield MD Primary Care Provider + [phone] Prashanth Back OD Unavailable [phone] Francia Champagne LPN Unavailable +[phone] Ciaran Lara MD Unavailable [phone] Suresh Ascencio MD Unavailable +[phone] Prashanth Gutierrez MD Unavailable Encounter Details Date Type Department Care Team (Latest Contact Info) Description 08/11/2016 Orders Only [facility] CLINCONV ProviderRon MD [address] [place] [address] Social History Tobacco Use Types Packs/Day [...] Date/Time Associated Diagnosis Comments PROCEDURE - RESULT 11/29/2016 12 :00 AM CDT documented in this encounter Results * PROCEDURE - RESULT (11/29/2016 12:00 AM CDT) Narrative 11/29/2016 12:00 AM CDT Ordered by an unspecified provider. us Historical Provider Final Res ult documented in this encounter Visit Diagnoses Not on filedocumented in this encounter Care Teams Electronic Organ Technician Relationship Specialty Start Date End Date Nohemi Hatfield MD [address] [place] [address] PCP - General 04/19/18 02/26/19 Mateusz Olivas PA [address] [place] [address] DR CAMACHO [address] [place] [address] PCP - General 02/27/19 04/29/19 Nohemi Hatfield MD [address] [place] [address] PCP - General Internal Medicine 04/30/19 Zane King MD [address] [place] [address] DR CAMACHO [address] [place] [address] Consulting Physician Orthopedic Surgery 10/25/18 Jaron Owens MD [address] [place] [address] DR CAMACHO [address] [place] [address] Consulting Physician Orthopedic Surgery 10/25/1812/12 Franko Davis MD [address] [place] [address] [address] [address] Soccer Ball Assembler Cardiovascular Disease 11/15/18 Francia Champagne LPN [address] [facility] [address] CAMACHO [address] [address] Armature Winder Helper Repair 11/20/18 11/20/18 Prashanth Back OD [facility] [place] [address] Internal Medicine 11/08/19 Francia Champagne LPN [address] [facility] [address] CAM[address] [address] Armature Winder Helper Repair 06/03/20 06/03/20 Ciaran Lara MD [facility] [address] [place] [address] Consulting Physician Ophthalmology 11/18/20 12/12/22 Suresh Ascencio MD [facility] [address] [place] [address] Consulting Physician Cardiology 12/13/22 Prashanth Gutierrez MD [facility] [address] [place] [address] Consulting Physician Urology 06/15/23 documented as of this encounter
--- OUTSIDE RECORDS SUMMARY | 2024-09-25 14:43 | XMS_ITS | Clinical Summary ---
Author Organization Unknown Care Team Providers Care Food And Drug Research Scientist Name Role Phone AKIN GRIFFITH, DEANA Unavailable Unavailable ISABEL SEWELL, STEVE Unavailable Unavailabl e Payers Payer Name Policy Type Policy Number Effective Date Expira tion Date MEDICARE - [place] - PDGM [id number] Problems Condition Name Condition Details Condition Category Status Onset Date Resolution Date Last Treatment Date Treating Clinician Comments AFTERCARE FOLLOWING JOINT REPLACEMENT SURGERY Active 09-18 00:00: 00 UNILATERAL PRIMARY OSTEOARTHRIT IS, RIGHT HIP Active 09-17 00:00: 00 Allergies, Adverse Reactions, Alerts Allergy Name Allergy Type Status Severity Reaction(s) Onset Date Inactive Date Treating Clinician Comments NKA Propensity to adverse reactions Active 2024-09 10:14:1 5 Immunizations Ordered Immunization Name Filled Immunization Name Date Status Comments Refusal Reason INFLUENZA, TIV (INACTIVATED) 2023-11-30 00:00:00 Vital Signs Vital Name Observation Time Observation Value Commen ts Temperature 2024-09-25 08:33:00.000 98.5 [degF] Temperature 2024-09-21 09:41:00.000 97.4 [degF] Temperature 2024-09-20 10:48:00.000 97.7 [degF] BMI (%) 2024-09-20 09:57:00.000 26 kg/m2 Height 2024-09-20 09:56:56.000 69 [in_us] Pulse 2024-09-25 08:33:00.000 70 /min Pulse 2024-09-21 09:41:00.000 70 /min Pulse 2024-09-20 10:48:00.000 62 /min O2 Saturation (%) 2024-09-25 08:33:00.000 95 % O2 Saturation (%) 2024-09-21 09:41:00.000 94 % O2 Saturation (%) 2024-09-20 10:48:00.000 97 % Respirations 2024-09-25 08:33:00.000 18 /min Respirations 2024-09-21 09:41:00.000 18 /min Respirations 2024-09-20 10:48:00.000 18 /min Weight (lbs) 2024-09-20 09:57:00.000 180 [lb_av] Systolic Blood Pressure 2024-09-25 08:33:00.000 120 mm [Hg] Systolic Blood Pressure 2024-09-21 09:41:00.000 110 mm [Hg] Systolic Blood Pressure 2024-09-20 10:48:00.000 116 mm [Hg] Diastolic Blood Pressure 2024-09-25 08:33:00.000 70 mm [Hg] Diastolic Blood Pressure 2024-09-21 09:41:00.000 70 mm [Hg] Diastolic Blood Pressure 2024-09-20 10:48:00.000 60 mm [Hg] Plan of Treatment Planned Activity Planned Date Details Comments Future Scheduled Test SKILLED NU RSE TO EVALUATE PATIENT, IDENTIFY PRIMARY AND CO-MORBID CONDITIONS CODED PER CODING GUIDELINES, AND DEVELOP PATIENT SPECIFIC PLAN OF CARE THAT INCLUDES PATIENT GOAL FOR HOME HEALTH. [code = SKILLED NURSE TO EVALUATE PATIENT, IDENTIFY PRIMARY AND CO-MORBID CONDITIONS CODED PER CODING GUIDELINES, AND DEVELOP PATIENT SPECIFIC PLAN OF CARE THAT INCLUDES PATIENT GOAL FOR HOME HEALTH.] Future Scheduled Test SKILLED NU RSE TO REVIEW PATIENT MEDICATIONS (PRESCRIPTION/OTC). INSTRUCT PATIENT/CAREGIVER ON ALL MEDICATIONS INCLUDING PURPOSE, WHEN TO TAKE, IMPORTANCE OF MEDICATION ADHERENCE, MONITORING OF EFFECTIVENESS, ADVERSE DRUG REACTIONS, POSSIBLE SIDE EFFECTS, AND WHEN TO NOTIFY AGENCY OR PHYSICIAN/PROVIDER OF ANY CONCERNS. [code = SKILLED NURSE TO REVIEW PATIENT MEDICATIONS (PRESCRIPTION/OTC). INSTRUCT PATIENT/CAREGIVER ON ALL MEDICATIONS INCLUDING PURPOSE, WHEN TO TAKE, IMPORTANCE OF MEDICATION ADHERENCE, MONITORING OF EFFECTIVENESS, ADVERSE DRUG REACTIONS, POSSIBLE SIDE EFFECTS, AND WHEN TO NOTIFY AGENCY OR PHYSICIAN/PROVIDER OF ANY CONCERNS.] Future Scheduled Test PATIENT LUNDY S A RISK OF HOSPITALIZATION AND ED USE. SKILLED NURSE TO ESTABLISH SUPPORT MEASURES TO MINIMIZE RISK OF HOSPITALIZATION AND ED USE, AND INSTRUCT PATIENT/CAREGIVER ON METHODS TO REDUCE AVOIDABLE HOSPITALIZATION AND ED USE. [code = PATIENT HAS A RISK OF HOSPITALIZATION AND ED USE. SKILLED NURSE TO ESTABLISH SUPPORT MEASURES TO MINIMIZE RISK OF HOSPITALIZATION AND ED USE, AND INSTRUCT PATIENT/CAREGIVER ON METHODS TO REDUCE AVOIDABLE HOSPITALIZATION AND ED USE.] Future Scheduled Test SKILLED NU RSE TO PROVIDE INSTRUCTION TO PATIENT/CAREGIVER RELATED TO DISCHARGE PLANNING. [code = SKILLED NURSE TO PROVIDE INSTRUCTION TO PATIENT/CAREGIVER RELATED TO DISCHARGE PLANNING.] Future Scheduled Test SKILLED NU RSE TO PERFORM ENVIRONMENTAL SAFETY RISK ASSESSMENT AND FALL RISK ASSESSMENT AND PROVIDE INSTRUCTION TO IMPLEMENT ENVIRONMENTAL SAFETY AND FALL PREVENTION STRATEGIES THROUGHOUT THE CERTIFICATION PERIOD. SKILLED NURSE WILL MAINTAIN SITUATIONAL AWARENESS AND WILL NOTIFY CLINICAL VISITING HOUSEKEEPER AND PHYSICIAN/PROVIDER WITH ANY CHANGE IN CONDITION. [code = SKILLED NURSE TO PERFORM ENVIRONMENTAL SAFETY RISK ASSESSMENT AND FALL RISK ASSESSMENT AND PROVIDE INSTRUCTION TO IMPLEMENT ENVIRONMENTAL SAFETY AND FALL PREVENTION STRATEGIES THROUGHOUT THE CERTIFICATION PERIOD. SKILLED NURSE WILL MAINTAIN SITUATIONAL AWARENESS AND WILL NOTIFY CLINICAL VISITING HOUSEKEEPER AND PHYSICIAN/PROVIDER WITH ANY CHANGE IN CONDITION.] Future Scheduled Test SKILLED NU RSE FOR OBSERVATION AND ASSESSMENT OF PATIENTS PAIN LEVEL AND EFFECTIVENESS OF PAIN MANAGEMENT REGIMEN. SKILLED NURSE TO INSTRUCT PATIENT/CAREGIVER REGARDING PHARMACOLOGIC AND NON-PHARMACOLOGIC PAIN CONTROL MEASURES. SKILLED NURSE TO REPORT TO PHYSICIAN IF PAIN LEVEL IS OUTSIDE OF ESTABLISHED PARAMETERS. [code = SKILLED NURSE FOR OBSERVATION AND ASSESSMENT OF PATIENTS PAIN LEVEL AND EFFECTIVENESS OF PAIN MANAGEMENT REGIMEN. SKILLED NURSE TO INSTRUCT PATIENT/CAREGIVER REGARDING PHARMACOLOGIC AND NON-PHARMACOLOGIC PAIN CONTROL MEASURES. SKILLED NURSE TO REPORT TO PHYSICIAN IF PAIN LEVEL IS OUTSIDE OF ESTABLISHED PARAMETERS.] Future Scheduled Test SKILLED NU RSE TO ASSESS PATIENT'S SKIN INTEGRITY AND INSTRUCT PATIENT/CAREGIVER ON MEASURES TO PREVENT PRESSURE ULCERS. [code = SKILLED NURSE TO ASSESS PATIENT'S SKIN INTEGRITY AND INSTRUCT PATIENT/CAREGIVER ON MEASURES TO PREVENT PRESSURE ULCERS.] Future Scheduled Test SKILLED NU RSE TO ASSESS ANXIETY AND PROVIDE ASSISTANCE TO PATIENT FOR UNDERSTANDING AND MANAGEMENT OF FEELINGS. [code = SKILLED NURSE TO ASSESS ANXIETY AND PROVIDE ASSISTANCE TO PATIENT FOR UNDERSTANDING AND MANAGEMENT OF FEELINGS.] Future Scheduled Test SKILLED NU RSE TO PROVIDE TEACHING ON SIGNS AND SYMPTOMS AND MANAGEMENT OF HYPERTENSION. [code = SKILLED NURSE TO PROVIDE TEACHING ON SIGNS AND SYMPTOMS AND MANAGEMENT OF HYPERTENSION.] Future Scheduled Test SKILLED NU RSE FOR O/A AND SKILLED TEACHING RELATED TO SIGNS AND SYMPTOMS AND MANAGEMENT OF RIGHT HIP REPLACEMENT, WEAKNESS, OSTEOARTHRITIS [code = SKILLED NURSE FOR O/A AND SKILLED TEACHING RELATED TO SIGNS AND SYMPTOMS AND MANAGEMENT OF RIGHT HIP REPLACEMENT, WEAKNESS, OSTEOARTHRITIS ] Future Scheduled Test SKILLED NU RSE FOR O/A OF SELF-CARE DEFICITS AND TO PROVIDE TEACHING RELATED TO SAFE PROVISION OF ADLS. [code = SKILLED NURSE FOR O/A OF SELF-CARE DEFICITS AND TO PROVIDE TEACHING RELATED TO SAFE PROVISION OF ADLS.] Future Scheduled Test SKILLED NU RSE FOR O/A AND SKILLED TEACHING RELATED TO SIGNS AND SYMPTOMS OF INFECTION AND INFECTION CONTROL MEASURES. [code = SKILLED NURSE FOR O/A AND SKILLED TEACHING RELATED TO SIGNS AND SYMPTOMS OF INFECTION AND INFECTION CONTROL MEASURES.] Future Scheduled Test SKILLED NU RSE TO INSTRUCT PATIENT/CAREGIVER ON PREVENTION OF SEPSIS, AND SIGNS AND SYMPTOMS OF SEPSIS TO REPORT. [code = SKILLED NURSE TO INSTRUCT PATIENT/CAREGIVER ON PREVENTION OF SEPSIS, AND SIGNS AND SYMPTOMS OF SEPSIS TO REPORT.] Future Scheduled Test HOME [facility] MAY ACCEPT ORDERS FROM THE FOLLOWING PHYSICIANS: DR. GERARDO (ORTHO SURGEON/CERT. PROVIDER), DR. MALAVE (PCP) [code = HOME HEALTH AGENCY MAY ACCEPT ORDERS FROM THE FOLLOWING PHYSICIANS: DR. GERARDO (ORTHO SURGEON/CERT. PROVIDER), DR. MALAVE (PCP)] Future Scheduled Test SKILLED NU RSE TO INSTRUCT PATIENT/CAREGIVER ON AFTERCARE FOLLOWING RIGHT TOTAL HIP JOINT REPLACEMENT, INCLUDING PRECAUTIONS, SIGNS AND SYMPTOMS OF POST-OP COMPLICATIONS, PAIN MANAGEMENT TECHNIQUES, AND ENSURE KARISSA DRESSING REMAINS IN PLACE UNTIL 7 DAYS POST OP. THEN SKILLED NURSE TO REMOVE DRESSING AND LEAVE DERMABOND MESH IN PLACE UNDERNEATH. NO NEED TO COVER. ENSURE DRESING REMAINS CLEAN, DRY, AND INTACT. DO NOT APPLY LOTIONS OR OINTMENTS TO SKIN SURROUNDING INCISION OR INCISION ITSELF UNTIL 6 WEEKS. [code = SKILLED NURSE TO INSTRUCT PATIENT/CAREGIVER ON AFTERCARE FOLLOWING RIGHT TOTAL HIP JOINT REPLACEMENT, INCLUDING PRECAUTIONS, SIGNS AND SYMPTOMS OF POST-OP COMPLICATIONS, PAIN MANAGEMENT TECHNIQUES, AND ENSURE KARISSA DRESSING REMAINS IN PLACE UNTIL 7 DAYS POST OP. THEN SKILLED NURSE TO REMOVE DRESSING AND LEAVE DERMABOND MESH IN PLACE UNDERNEATH. NO NEED TO COVER. ENSURE DRESING REMAINS CLEAN, DRY, AND INTACT. DO NOT APPLY LOTIONS OR OINTMENTS TO SKIN SURROUNDING INCISION OR INCISION ITSELF UNTIL 6 WEEKS. ] Future Scheduled Test PHYSICAL T HERAPIST TO EVALUATE PATIENT FOR STRENGTH AND AMBULATION TRAINING [code = PHYSICAL THERAPIST TO EVALUATE PATIENT FOR STRENGTH AND AMBULATION TRAINING] Future Scheduled Test PHYSICAL T HERAPIST TO EVALUATE PATIENT SECONDARY TO FUNCTIONAL DEFICITS/SAFETY CONCERNS. PHYSICAL THERAPY TO ESTABLISH /UPGRADE/DOWNGRADE THERAPEUTIC EXERCISE PROGRAM AND INSTRUCT PATIENT/CAREGIVER ON EXERCISE PRECAUTIONS WITH WRITTEN HOME PROGRAM. MAY INCLUDE PROM, AAROM, AROM, RROM APPROPRIATE TO IMPROVE FUNCTIONAL STRENGTH AND RANGE OF MOTION. PHYSICAL THERAPY TO INSTRUCT PATIENT/CAREGIVER ON GAIT TRAINING TECHNIQUES USING APPROPRIATE ASSISTIVE DEVICE, PROPER BODY MECHANICS TO IMPROVE MOBILITY, AND PREVENT INJURY OF PATIENT AND/OR CAREGIVER. PHYSICAL THERAPY TO EDUCATE PATIENT/CAREGIVER AND PROVIDE COLD MODALITY TO RIGHT HIP AREA X15-30 MINUTES ONCE EVERY HOUR NEEDED TO CONTROL PAIN AND SORENESS. PHYSICAL THERAPY TO INSTRUCT PATIENT/CAREGIVER ON BALANCE AND BALANCE STRATEGIES TO IMPROVE SAFE MOBILITY AND REDUCE RISK FOR FALL AND INJURY PHYSICAL THERAPIST TO ASSESS BEST PRACTICE INTERVENTIONS TO ASSIST PATIENTS TO IMPROVE OR STABILIZE MEDICAL STATUS AND PREVENT RE-HOSPITALIZATION. MEASURES INCLUDING REVIEW AND IDENTIFICATION OF CONCERNS FOR THE FOLLOWING AREAS: DRUG REGIMEN, ENVIRONMENTAL SAFETY ISSUES AND FALLS, PRESSURE ULCERS, PAIN, AND DISEASE MANAGEMENT. [code = PHYSICAL THERAPIST TO EVALUATE PATIENT SECONDARY TO FUNCTIONAL DEFICITS/SAFETY CONCERNS. PHYSICAL THERAPY TO ESTABLISH /UPGRADE/DOWNGRADE THERAPEUTIC EXERCISE PROGRAM AND INSTRUCT PATIENT/CAREGIVER ON EXERCISE PRECAUTIONS WITH WRITTEN HOME PROGRAM. MAY INCLUDE PROM, AAROM, AROM, RROM APPROPRIATE TO IMPROVE FUNCTIONAL STRENGTH AND RANGE OF MOTION. PHYSICAL THERAPY TO INSTRUCT PATIENT/CAREGIVER ON GAIT TRAINING TECHNIQUES USING APPROPRIATE ASSISTIVE DEVICE, PROPER BODY MECHANICS TO IMPROVE MOBILITY, AND PREVENT INJURY OF PATIENT AND/OR CAREGIVER. PHYSICAL THERAPY TO EDUCATE PATIENT/CAREGIVER AND PROVIDE COLD MODALITY TO RIGHT HIP AREA X15-30 MINUTES ONCE EVERY HOUR NEEDED TO CONTROL PAIN AND SORENESS. PHYSICAL THERAPY TO INSTRUCT PATIENT/CAREGIVER ON BALANCE AND BALANCE STRATEGIES TO IMPROVE SAFE MOBILITY AND REDUCE RISK FOR FALL AND INJURY PHYSICAL THERAPIST TO ASSESS BEST PRACTICE INTERVENTIONS TO ASSIST PATIENTS TO IMPROVE OR STABILIZE MEDICAL STATUS AND PREVENT RE-HOSPITALIZATION. MEASURES INCLUDING REVIEW AND IDENTIFICATION OF CONCERNS FOR THE FOLLOWING AREAS: DRUG REGIMEN, ENVIRONMENTAL SAFETY ISSUES AND FALLS, PRESSURE ULCERS, PAIN, AND DISEASE MANAGEMENT. ] Goal Patient Goal - PLAY GOLF AGA IN Goal Provider Goal - A PLAN OF CARE WILL BE ESTABLISHED THAT MEETS PATIENT'S [facility] NEEDS AND INCLUDES PATIENT GOAL FOR HOME HEALTH. Goal Provider Goal - PATIENT/CAREGIVER WILL VERBALIZE UNDERSTANDING OF EDUCATION PROVIDED ON MEDICATIONS BY THE END OF THE CERTIFICATION PERIOD. Goal Provider Goal - PATIENT WILL HAVE SUPPORT MEASURES ESTABLISHED TO PREVENT HOSPITALIZATION AND ED USE AND PATIENT/CAREGIVER WILL VERBALIZE/DEMONSTRATE METHODS TO REDUCE AVOIDABLE HOSPITALIZATION AND ED USE BY END OF EPISODE. Goal Provider Goal - PATIENT/CAREGIVER WILL VERBALIZE UNDERSTANDING OF DISCHARGE PLANNING INSTRUCTIONS BY DATE OF DISCHARGE. Goal Provider Goal - PATIENT/CAREGIVER WILL VERBALIZE/DEMONSTRATE EFFECTIVE ENVIRONMENTAL SAFETY AND FALL PREVENTION STRATEGIES, WILL REMAIN SAFE IN THE COMMUNITY, AND WILL BE FREE OF DANGER TO SELF AND OTHERS THROUGHOUT THE CERTIFICATION PERIOD. Goal Provider Goal - PATIENT/CAREGIVER WILL DEMONSTRATE UNDERSTANDING OF PHARMACOLOGIC AND NONPHARMACOLOGIC PAIN CONTROL MEASURES AND PATIENT WILL HAVE IMPROVEMENT IN PAIN INTERFERING WITH ACTIVITY EVIDENCED BY PAIN AT A LEVEL THAT IS ACCEPTABLE TO THE PATIENT AND PAIN LEVEL WITHIN ESTABLISHED PARAMETERS BY END OF CERTIFICATION PERIOD. Goal Provider Goal - PATIENT/CAREGIVER WILL VERBALIZE UNDERSTANDING OF PRESSURE ULCER PREVENTION BY END OF THE EPISODE. Goal Provider Goal - SYMPTOMS OF ANXIETY ARE IDENTIFIED AND INTERVENTIONS INITIATED TO ENABLE PATIENT TO UNDERSTAND AND MANAGE FEELINGS THROUGHOUT EPISODE. Goal Provider Goal - PATIENT/CAREGIVER WILL VERBALIZE SIGNS AND SYMPTOMS OF HYPERTENSION AND WILL BE ABLE TO DEMONSTRATE ABILITY TO MANAGE EXACERBATION BY END OF THE EPISODE. Goal Provider Goal - PATIENT/CAREGIVER WILL VERBALIZE UNDERSTANDING OF MUSCULOSKELETAL DISEASE INCLUDING SIGNS AND SYMPTOMS, MANAGEMENT, AND PRESCRIBED TREATMENT REGIMEN BY END OF EPISODE. Goal Provider Goal - PATIENT/CAREGIVER WILL VERBALIZE/DEMONSTRATE UNDERSTANDING OF SAFE PROVISION OF ADLS BY THE END OF THE CERTIFICATION PERIOD. Goal Provider Goal - PATIENT/CAREGIVER WILL VERBALIZE/DEMONSTRATE UNDERSTANDING OF S/S OF INFECTION AND INFECTION CONTROL MEASURES. SIGNS AND SYMPTOMS OF INFECTION WILL BE IDENTIFIED AND PHYSICIAN NOTIFIED FOR PROMPT INTERVENTION THROUGHOUT THE CERTIFICATION PERIOD. Goal Provider Goal - PATIENT WILL BE FREE FROM INFECTION AND PATIENT/CAREGIVER WILL VERBALIZE UNDERSTANDING OF SIGNS AND SYMPTOMS AND METHODS TO PREVENT SEPSIS BY END OF THE EPISODE. Goal Provider Goal - ADDITIONAL ORDERS WILL BE RECEIVED FROM ALTERNATE PHYSICIAN IN A TIMELY MANNER THROUGHOUT THE CERTIFICATION PERIOD. Goal Provider Goal - PATIENT/CAREGIVER WILL VERBALIZE/DEMONSTRATE MANAGEMENT OF AFTERCARE FOLLOWING RIGHT HIP JOINT REPLACEMENT INCLUDING SIGNS AND SYMPTOMS TO REPORT AND METHODS TO PREVENT POST-OP COMPLICATIONS BY END OF CERTIFICATION PERIOD. Goal Provider Goal - A PHYSICAL THERAPY EVALUATION TO BE COMPLETED WITH RECOMMENDATIONS AND/OR WRITTEN PLAN OF TREATMENT ESTABLISHED FOR PHYSICIANS SIGNATURE. Goal Provider Goal - PHYSICAL THERAPY EVALUATION TO BE COMPLETED WITH RECOMMENDATIONS AND/OR WRITTEN TREATMENT PLAN OF CARE ESTABLISHED FOR THE PHYSICIANS SIGNATURE PATIENT/CAREGIVER WILL PERFORM THERAPEUTIC EXERCISE/S AND DEMONSTRATE PARTICIPATION IN A HOME PROGRAM. PATIENT/CAREGIVER WILL DEMONSTRATE IMPROVED GAIT TECHNIQUES TO MINIMIZE RISK OF INJURY. PATIENT/CAREGIVER WILL BE INSTRUCTED IN PROPER APPLICATION OF COLD COMPRESS. PATIENT/CAREGIVER WILL DEMONSTRATE IMPROVED BALANCE AND REDUCE THE RISK OF FALLS AND INJURY. PATIENT/CAREGIVER VERBALIZES UNDERSTANDING OF THE INITIAL BEST PRACTICE RECOMMENDATIONS. PHYSICIAN TO BE NOTIFIED APPROPRIATE FOR ANY CHANGES OR COMPLICATIONS THROUGHOUT THE CERTIFICATION PERIOD. Progress Notes Progress Notes <paragraph>[Visit Date: 2024 by PORSHA CAMPOS RN]:</paragraph><paragraph>PATIENT SEEN TODAY FOR SOC. PATIENT IS A 83 YEAR OLD MALE REFERRED TO US FOLLOWING A RIGHT TOTAL HIP REPLACEMENT BY DR. DEANA GERARDO (CERT. PROVIDER) PERFORMED AT [facility] ON 09/17. PATIENT DISCHARGED TO HOME ON 09/19. HE LIVES THERE WITH HIS WHO IS PRIMARY CAREGIVER. PATIENT HAS PMH OF HYPERTENSION, ANXIETY, AND OSTEOARTHRITIS. MED REC COMPLETED. ALL MEDS VIEWED IN THE HOME. PATIENT IS NOT TAKING MANY OF THE MEDS ON HIS DISCHARGE MED LIST. HE IS WAITING TO HEAR FROM HIS PCP, DR. MALAVE, ON SOME OF THE MEDS. MED ISSUE NOTE WAS CREATED. VITAL SIGNS TAKEN AND WNL. HEAD TO TOE ASSESSMENT COMPLETED. PATIENT IS ALERT AND ORIENTED X3. HE IS NOT HAVING MAJOR ISSUES WITH PAIN CURRENTLY. PAIN IS WELL MANAGED BY OXYCODONE-ACETAMINOPHEN ALONE. NO CURRENT ISSUES WITH SHORTNESS OF BREATH. LUNG SOUNDS CLEAR. HEAD TO TOE SKIN CHECK COMPLETED. KARISSA DRESING IS PRESENT TO RIGHT HIP. IT IS CLEAN, DRY, AND INTACT. ORDERS ARE PRESENT FOR CHANGING IT. NO OTHER WOUNDS OR SKIN CARE ISSUES AT THIS TIME. RIGHT LEG IS SLIGHTLY SWOLLEN AND A BIT RED. WILL REPORT TO DR. GERARDO'S OFFICE DURING POC REVIEW CALL. NO CURRENT ISSUES WITH OR GI. OASIS WALK COMPLETED. PATIENT IS ABLE TO AMBULATE AROUND HIS HOUSE WELL WITH A WALKER. HE REQUIRES DAIRY NUTRITION SPECIALIST/MINIMAL ASSISTANCE WITH MOST ADLS CURRENTLY. HIS IS ABLE TO PROVIDE THIS. PATIENT IS A HIGH FALL RISK. FALL PREVENTION EDUCATION WAS PROVIDED. AFTER ASSESSMENT, SN TO SEE PATIENT TWICE NEXT WEEK, THEN WEEKLY TWICE MORE, THEN LIKELY DISCHARGE. PT TO EVAL AND TREAT. WRITTEN MED LIST, FREQUENCY OF VISITS, AND GOALS AND INTERVENTIONS REVIEWED WITH PATIENT AND LEFT IN THE [facility] CARING FOLDER. [facility] CARING FOLDER REVIEWED WITH PATIENT. CONSENT SIGNED. CALL US FIRST DISCUSSED. TOTAL HIP ACTION PLAN REVIEWED AND LEFT IN THE HOME. SINGLE SPINDLE SCREW MACHINE OPERATOR REACHED OUT TO DR. GERARDO AND DR. MALAVE'S OFFICE. SPOKE WITH MAURO SEWELL WITH DR. MALAVE. THEY REPORT THEY WILL FAX LAB ORDERS LATER ON TODAY OR TOMORROW. SPOKE WITH PRISCILA SEWELL WITH DR. GERARDO'S OFFICE. THEY ARE AGREEABLE TO OUR PLAN OF CARE. MED REC PERFORMED. WOUND CARE ORDERS ARE CORRECT AT THIS TIME.</paragraph> Encounters Start Date/Time End Date/Time Encounter Type Admission Type Attending [facility] Care Department Encounter ID Discharge Date Discharge Status Discharge Condition Discharge Reason Percent Goals Met 2024-09-20 00:00:00 2024-11-18 00:00:00 Outpatient NEW ADMISSION STEVE HALL [facility] [id number] 50.00
--- OUTSIDE RECORDS SUMMARY | 2024-09-25 14:43 | XMS_ITS | Encounter Summary ---
Author Organization [facility] Facility Care Team Providers Care Student Records Coordinator Name Role Phone Nohemi Hatfield MD Primary Care Provider + [phone] Zane King MD Unavailable [phone] Jaron Owens MD Unavailable [phone] Franko Davis MD Unavailable [phone] Francia Champagne LPN Unavailable [phone] Mateusz Olvias Primary Care Provide r Nohemi Hatfield MD Primary Care Provider + [phone] Prashanth Back OD Unavailable [phone] Francia Champagne LPN Unavailable [phone] Ciaran Lara MD Unavailable [phone] Suresh Ascencio MD Unavailable [phone] Prashanth Gutierrez MD Unavailable Encounter Details Date Type Department Care Team (Latest Contact Info) Description 07/24/2016 Orders Only [facility] CLINCONV ProviderRon MD [address] [place] [id number] Social History Tobacco Use Types Packs/Day [...] Procedure Name Priority Date/Time Associated Diagnosis Comments CARDIOLOGY REPORT 07/28/2016 12: 00 AM CDT CARDIOLOGY REPORT 07/28/2016 12: 00 AM CDT documented in this encounter Results * CARDIOLOGY REPORT (07/28/2016 12:00 AM CDT) Anatomical Region Laterality Modality Other Narrative 07/28/2016 12:00 AM CDT Ordered by an unspecified provider. us Historical Provider CV CARDIAC SERVICES PROCE DURES Final Result * CARDIOLOGY REPORT (07/28/2016 12:00 AM CDT) Anatomical Region Laterality Modality Other Narrative 07/28/2016 12:00 AM CDT Ordered by an unspecified provider. Historical Provider CV CARDIAC SERVICES PROCE DURES Final Result documented in this encounter Visit Diagnoses Not on filedocumented in this encounter Care Teams Student Records Coordinator Relationship Specialty Start Date End Date Nohemi Hatfield MD [address] [place] [id number] PCP - General 04/19/18 02/26/19 Mateusz Olivas PA [address] [place] [address] DR CAMACHO [address] [place] [id number] PCP - General 02/27/19 04/29/19 Nohemi Hatfield MD [address] [place] [id number] PCP - General Internal Medicine 04/30/19 [place] [address] [place] [address] DR CAMACHO [address] [place] [address] Consulting Physician Orthopedic Surgery 10/25/18 Jaron Owens MD [address] [facility] [address] [place] [address] Consulting Physician Orthopedic Surgery 10/25/1812/12 Franko Davis MD [address] [facility] [address] CAMACHO [address] [address] Linseed Oil Boiler Cardiovascular Disease 11/15/18 Francia Champagne, LITHOGRAPHIC PROOFER [address] [facility] [address] CAMACHO [address] [address] Book Retailer 11/20/18 11/20/18 Prashanth Back OD [facility] [place] [address] Internal Medicine 11/08/19 Francia Champagne, LITHOGRAPHIC PROOFER [address] [facility] [address] CAMACHO [address] [address] Book Retailer 06/03/20 06/03/20 Ciaran Lara MD [facility] [address] [place] [address] Consulting Physician Ophthalmology 11/18/20 12/12/22 Suresh Ascencio MD [facility] [address] [place] [address] Consulting Physician Cardiology 12/13/22 Prashanth Gutierrez MD [facility] [address] [place] [address] Consulting Physician Urology 06/15/23 documented as of this encounter
--- OUTSIDE RECORDS SUMMARY | 2024-09-25 14:43 | XMS_ITS | Encounter Summary ---
Author Organization [facility] Facility Care Team Providers Care Lean Engineer Name Role Phone Nohemi Hatfield MD Primary Care Provider + [phone] Zane King MD Unavailable [phone] Jaron Owens MD Unavailable [phone] Franko Davis MD Unavailable [phone] Francia Champagne LPN Unavailable [phone] Mateusz Olivas Primary Care Provide r Nohemi Hatfield MD Primary Care Provider + [phone] Prashanth Back OD Unavailable [phone] Francia Champagne LPN Unavailable [phone] Ciaran Lara MD Unavailable [phone] Suresh Ascencio MD Unavailable [phone] Prashanth Gutierrez MD Unavailable Encounter Details Date Type Department Care Team (Latest Contact Info) Description 11/08/2016 Orders Only [facility] CLINCONV ProviderRon MD [address] [place] [address] Social History Tobacco Use Types Packs/Day [...] Date/Time Associated Diagnosis Comments COLONOSCOPY - SCAN 11/08/2016 12 :00 AM CDT documented in this encounter Results * COLONOSCOPY - SCAN (11/08/2016 12:00 AM CDT) Narrative 11/08/2016 12:00 AM CDT Ordered by an unspecified provider. us Historical Provider Final Res ult documented in this encounter Visit Diagnoses Not on filedocumented in this encounter Care Teams Lean Engineer Relationship Specialty Start Date End Date Nohemi Hatfield MD [address] [place] [phone] PCP - General 04/19/18 02/26/19 Mateusz Olivas PA [address] [place] [address] DR CAM[address]O [address] [place] [address] PCP - General 02/27/19 04/29/19 Nohemi Hatfield MD [address] [place] [address] PCP - General Internal Medicine 04/30/19 Zane King MD [address] [place] [address] DR CAMACHO [address] [place] [address] Consulting Physician Orthopedic Surgery 10/25/18 Jaron Owens MD [address] [place] [address] DR CAMACHO [address] [place] [address] Consulting Physician Orthopedic Surgery 10/25/1812/12 Franko Davis MD [address] [place] [address] DR CAM[address]O [address] [address] Center Consultant Cardiovascular Disease 11/15/18 Francia Champagne LPN [address] [facility] [address]ACH[address] [address] Client Support Associate 11/20/18 11/20/18 Prashanth Back OD [facility] [address] [place] [address] Internal Medicine 11/08/19 Francia Champagne LPN [address] [facility] [address]ACH[address] [address] Client Support Associate 06/03/20 06/03/20 Ciaran Lara MD [facility] [address] [place] [address] Consulting Physician Ophthalmology 11/18/20 12/12/22 Suresh Ascencio MD [facility] [address] [place] [address] Consulting Physician Cardiology 12/13/22 Prashanth Gutierrez MD [facility] [address] [place] [address] Consulting Physician Urology 06/15/23 documented as of this encounter
[2024-09-25 15:11] LABS: Anion Gap 8 mmol/L (4-12); Blood Urea Nitrogen 22 mg/dL (7-20); Calcium 9.7 mg/dL (8.4-10.2); Carbon Dioxide 26 mmol/L (22-30); Chloride 93 mmol/L (96-107); Estimated Glomerular Filt Rate > 60; Glucose 144 mg/dL (65-110); Potassium 5.1 mmol/L (3.4-5.0); Sodium 127 mmol/L (137-145)
== END 2024-09-25 14:07 | disposition home or self-care (01) ==
PROVIDERS: Visit Provider Internal Medicine
DX: Z47.1 Aftercare following joint replacement surgery (principal)
CPT/HCPCS: 36415; 80048